=== PATIENT | male | born 1945 | race Caucasian/White ===

== ENCOUNTER 2020-01-16 14:19 | Outpatient (REF) | payer MEDICARE, SELFPAY ==
[2020-01-20 14:17] LABS: Cryptosporidium, F Negative (Negative); Giardia Ag, F Negative (Negative)
[2020-01-25 09:44] LABS: Misc Referral (VDH) See Comments
[2020-01-27 08:22] LABS: Misc Referral (MAYO) See Comments
== END 2020-01-16 14:39 ==
LOC: LBN 14:19
PROVIDERS: PCP Nurse Practitioner Family; Visit Provider Physician Assistant
DX: K52.9 Noninfective gastroenteritis and colitis, unspecified (principal)
CPT/HCPCS: 87177; 87209; 87328; 87329

== ENCOUNTER 2020-09-01 02:19 | Outpatient (CLI) | payer MEDICARE, SELFPAY ==
[2020-09-01 09:29] LABS: ALT 27 U/L (16-63); AST 16 U/L (15-37); Albumin 3.9 g/dL (3.4-5.0); Alkaline Phosphatase 125 U/L (46-116); Anion Gap 6.2 mmol/L (3-11); BUN 19 mg/dL (7-18); Bilirubin, Total 0.4 mg/dL (0.2-1.0); CO2 29.8 mmol/L (21.0-32.0); CREATININE 1.2 mg/dL (0.70-1.30); Calcium 8.7 mg/dL (8.5-10.1); Calculated LDL 48 mg/dL (<100); Chloride 108 mmol/L (98-107); Cholesterol 119 mg/dL (<200); Estimated GFR 59.35 (mL/min/1.73m2); Glucose 80 mg/dL (74-106); HDL Cholesterol 36 mg/dL (40-60); Potassium 4.3 mmol/L (3.5-5.1); Sodium 144 mmol/L (136-145); TSH (W/Ref FT4) 2.16 uIU/mL (0.36-3.74); Total Protein 6.9 g/dL (6.4-8.2); Triglyceride 178 mg/dL (<150)
== END 2020-09-01 02:20 | disposition home or self-care (01) ==
LOC: LBO 02:19
PROVIDERS: Registered Nurse; PCP Nurse Practitioner Family; Visit Provider Nurse Practitioner Family
DX: I10 Essential (primary) hypertension (principal); E78.5 Hyperlipidemia, unspecified; R62.50 Unspecified lack of expected normal physiological development in childhood
CPT/HCPCS: 36415; 80053; 80061; 84443

== ENCOUNTER 2021-12-21 03:50 | Outpatient (CLI) | payer MEDICARE, SELFPAY ==
[2021-12-21 08:31] LABS: Abs Immature Grans 0.18 10^3/uL (0.0-0.06); Absolute Basophil Count 0.08 10^3/uL (0.0-0.2); Absolute Eosinophil Count 0.25 10^3/uL (0.0-0.7); Absolute Lymphocyte Count 1.67 10^3/uL (1.2-3.4); Absolute Monocyte Count 0.65 10^3/uL (0.1-0.8); Absolute Neutrophil Count 5.08 10^3/uL (1.2-6.7); Eosinophils % 3.2; HGB 15.3 g/dL (13.5-17.5); Immature Grans % 2.3; Lymphocytes % 21.1; MCH 30.6 pg (27.0-33.0); MCV 90 fL (80-95); MPV 12.8 fL (8.0-11.0); Monocytes % 8.2; Neutrophils % 64.2; Platelet Count 151 10^3/uL (130-400); RDW 14.7 % (11.8-14.1); RDW-SD 48.3 fL; WBC 7.91 10^3/uL (4.4-10.8)
[2021-12-21 09:02] LABS: ALT 22 U/L (16-63); AST 21 U/L (15-37); Albumin 4.1 g/dL (3.4-5.0); Alkaline Phosphatase 124 U/L (46-116); Anion Gap 8.9 mmol/L (3-11); BUN 18 mg/dL (7-18); Bilirubin, Total 0.5 mg/dL (0.2-1.0); CO2 28.1 mmol/L (21.0-32.0); CREATININE 1.3 mg/dL (0.70-1.30); Calcium 9.3 mg/dL (8.5-10.1); Calculated LDL 49 mg/dL (<100); Chloride 102 mmol/L (98-107); Cholesterol 137 mg/dL (<200); Estimated GFR 53.82 (mL/min/1.73m2); Glucose 93 mg/dL (74-106); HDL Cholesterol 39 mg/dL (40-60); Potassium 4.9 mmol/L (3.5-5.1); Sodium 139 mmol/L (136-145); Total Protein 7.7 g/dL (6.4-8.2); Triglyceride 247 mg/dL (<150)
[2021-12-21 09:22] LABS: Vitamin D 25 Total 30.3 ng/mL (30-100)
[2021-12-22 10:21] LABS: Hepatitis C Ab w Rflx HCV PCR Negative (Negative)
== END 2021-12-21 03:51 | disposition home or self-care (01) ==
PROVIDERS: PCP Nurse Practitioner Family; Visit Provider Registered Nurse
DX: I10 Essential (primary) hypertension (principal); E55.9 Vitamin D deficiency, unspecified; Z11.59 Encounter for screening for other viral diseases; Z72.89 Other problems related to lifestyle; E78.5 Hyperlipidemia, unspecified
CPT/HCPCS: 36415; 80053; 80061; 82306; 86803; 85025

== ENCOUNTER 2023-03-06 21:20 | Outpatient (REF) | payer MEDICARE, SELFPAY ==
[2023-03-06 16:33] LABS: Abs Immature Grans 0.15 10^3/uL (0.0-0.06); Absolute Basophil Count 0.03 10^3/uL (0.0-0.2); Absolute Eosinophil Count 0.23 10^3/uL (0.0-0.7); Absolute Lymphocyte Count 1.23 10^3/uL (1.2-3.4); Absolute Monocyte Count 0.44 10^3/uL (0.1-0.8); Absolute Neutrophil Count 4.72 10^3/uL (1.2-6.7); Basophils % 0.4; Eosinophils % 3.4; HCT 26.4 % (40.0-50.0); HGB 7.6 g/dL (13.5-17.5); Immature Grans % 2.2; Lymphocytes % 18.1; MCH 22.9 pg (27.0-33.0); MCHC 28.8 % (32.0-36.0); MCV 80 fL (80-95); Monocytes % 6.5; Neutrophils % 69.4; RBC 3.32 10^6/uL (4.36-5.78); RDW 18.1 % (11.8-14.1); RDW-SD 51.4 fL
[2023-03-06 17:00] LABS: Diff Comment RBC Morph Reviewed; Hypochromasia 2+; Polychromasia Present
[2023-03-06 17:01] LABS: Platelet Count 188 10^3/uL (130-400)
[2023-03-06 17:12] LABS: Vitamin D 25 Total 32.2 ng/mL (30-100)
[2023-03-06 17:21] LABS: ALT 18 U/L (16-63); AST 14 U/L (15-37); Albumin 3.6 g/dL (3.4-5.0); Alkaline Phosphatase 88 U/L (46-116); Anion Gap 10.1 mmol/L (3-11); BUN 24 mg/dL (7-18); Bilirubin, Total 0.3 mg/dL (0.2-1.0); CO2 25.9 mmol/L (21.0-32.0); CREATININE 1.5 mg/dL (0.70-1.30); Calcium 9.2 mg/dL (8.5-10.1); Chloride 103 mmol/L (98-107); Estimated GFR 47.95 (mL/min/1.73m2); Ferritin 8 ng/mL (26-388); Folate > 20.0 ng/mL (8.6-20.0); Glucose 156 mg/dL (74-106); Potassium 4.6 mmol/L (3.5-5.1); Sodium 139 mmol/L (136-145); TSH (W/Ref FT4) 2.73 uIU/mL (0.36-3.74); Total Protein 6.5 g/dL (6.4-8.2); Vitamin B12 231 pg/mL (193-986)
[2023-03-06 17:41] LABS: NT-proBNP 32 pg/mL (<300)
[2023-03-07 09:30] LABS: Iron 18 ug/dL (65-175); Total Iron Binding Capacity 317 ug/dL (250-450); Transferrin Sat 6 % (20-55)
[2023-03-07 09:48] LABS: Hemoglobin A1C 4.9 % (<5.7)
[2023-03-07 12:10] LABS: Magnesium 2.1 mg/dL (1.8-2.4)
[2023-03-07 17:35] LABS: Reticulocyte Count 3.9 % (0.5-2.5)
== END 2023-03-06 21:21 | disposition home or self-care (01) ==
LOC: LBN 21:20
PROVIDERS: PCP Nurse Practitioner Family; Visit Provider Nurse Practitioner Gerontology
DX: D52.9 Folate deficiency anemia, unspecified (principal); R68.89 Other general symptoms and signs; E83.42 Hypomagnesemia; R73.09 Other abnormal glucose; R53.82 Chronic fatigue, unspecified; Z00.00 Encounter for general adult medical examination without abnormal findings
CPT/HCPCS: 80053; 82306; 85045; 82607; 82728; 82746; 83036; 83540; 83550; 83735; 83880; 84443; 85025

== ENCOUNTER 2023-03-09 15:13 | Outpatient (REF) | payer MEDICARE, SELFPAY ==
[2023-03-09 14:12] LABS: Abs Immature Grans 0.25 10^3/uL (0.0-0.06); Absolute Basophil Count 0.06 10^3/uL (0.0-0.2); Absolute Eosinophil Count 0.23 10^3/uL (0.0-0.7); Absolute Lymphocyte Count 1.25 10^3/uL (1.2-3.4); Absolute Monocyte Count 0.58 10^3/uL (0.1-0.8); Absolute Neutrophil Count 5.06 10^3/uL (1.2-6.7); Basophils % 0.8; Eosinophils % 3.1; HCT 28.1 % (40.0-50.0); Immature Grans % 3.4; Lymphocytes % 16.8; MCH 22.5 pg (27.0-33.0); MCHC 28.5 % (32.0-36.0); MCV 79 fL (80-95); Monocytes % 7.8; Neutrophils % 68.1; Platelet Count 214 10^3/uL (130-400); RBC 3.55 10^6/uL (4.36-5.78); RDW 17.9 % (11.8-14.1); RDW-SD 51.8 fL; WBC 7.43 10^3/uL (4.4-10.8)
[2023-03-11 16:24] LABS: Erythropoietin 190 mIU/mL (2.6 - 18.5)
[2023-03-13 09:41] LABS: Methylmalonic Acid 0.24 nmol/mL (<=0.40)
== END 2023-03-09 15:14 | disposition home or self-care (01) ==
LOC: LBN 15:13
PROVIDERS: PCP Nurse Practitioner Family; Visit Provider Nurse Practitioner Gerontology
DX: D50.9 Iron deficiency anemia, unspecified (principal); G89.4 Chronic pain syndrome
CPT/HCPCS: 80186; 82668; 85025

== ENCOUNTER 2023-03-13 19:39 | Outpatient (REF) | payer MEDICARE, SELFPAY ==
[2023-03-13 18:36] LABS: Abs Immature Grans 0.24 10^3/uL (0.0-0.06); Absolute Basophil Count 0.05 10^3/uL (0.0-0.2); Absolute Eosinophil Count 0.19 10^3/uL (0.0-0.7); Absolute Lymphocyte Count 1.15 10^3/uL (1.2-3.4); Absolute Monocyte Count 0.54 10^3/uL (0.1-0.8); Absolute Neutrophil Count 4.57 10^3/uL (1.2-6.7); Basophils % 0.7; Eosinophils % 2.8; HCT 26.3 % (40.0-50.0); HGB 7.6 g/dL (13.5-17.5); Immature Grans % 3.6; Lymphocytes % 17.1; MCH 22.8 pg (27.0-33.0); MCHC 28.9 % (32.0-36.0); MCV 79 fL (80-95); Neutrophils % 67.8; Platelet Count 189 10^3/uL (130-400); RBC 3.34 10^6/uL (4.36-5.78); RDW 17.6 % (11.8-14.1); RDW-SD 49.6 fL; WBC 6.74 10^3/uL (4.4-10.8)
[2023-03-13 18:52] LABS: Diff Comment RBC Morph Reviewed
[2023-03-13 18:53] LABS: Hypochromasia 2+
[2023-03-13 18:54] LABS: Anisocytosis 1+; Poikilocytes 1+; Polychromasia Present
[2023-03-13 18:56] LABS: Iron 39 ug/dL (65-175); Total Iron Binding Capacity 322 ug/dL (250-450); Transferrin Sat 12 % (20-55)
[2023-03-13 18:57] LABS: ALT 23 U/L (16-63); AST 19 U/L (15-37); Albumin 3.5 g/dL (3.4-5.0); Alkaline Phosphatase 92 U/L (46-116); Anion Gap 9.6 mmol/L (3-11); BUN 20 mg/dL (7-18); Bilirubin, Total 0.3 mg/dL (0.2-1.0); CO2 26.4 mmol/L (21.0-32.0); CREATININE 1.4 mg/dL (0.70-1.30); Calcium 9.3 mg/dL (8.5-10.1); Chloride 104 mmol/L (98-107); Estimated GFR 52.09 (mL/min/1.73m2); Glucose 123 mg/dL (74-106); Potassium 4.9 mmol/L (3.5-5.1); Sodium 140 mmol/L (136-145); Total Protein 6.3 g/dL (6.4-8.2)
== END 2023-03-13 19:40 | disposition home or self-care (01) ==
LOC: LBN 19:39
PROVIDERS: PCP Nurse Practitioner Family; Visit Provider Nurse Practitioner Gerontology
DX: D51.0 Vitamin B12 deficiency anemia due to intrinsic factor deficiency (principal)
CPT/HCPCS: 80053; 83540; 83550; 85025

== ENCOUNTER 2023-03-18 18:28 | Outpatient (REF) | payer MEDICARE, SELFPAY ==
[2023-03-18 18:27] LABS: Abs Immature Grans 0.15 10^3/uL (0.0-0.06); Absolute Basophil Count 0.06 10^3/uL (0.0-0.2); Absolute Eosinophil Count 0.29 10^3/uL (0.0-0.7); Absolute Lymphocyte Count 1.55 10^3/uL (1.2-3.4); Absolute Monocyte Count 0.72 10^3/uL (0.1-0.8); Absolute Neutrophil Count 5.02 10^3/uL (1.2-6.7); Basophils % 0.8; Eosinophils % 3.7; HCT 29.5 % (40.0-50.0); HGB 8.4 g/dL (13.5-17.5); Immature Grans % 1.9; Lymphocytes % 19.9; MCH 22.8 pg (27.0-33.0); MCHC 28.5 % (32.0-36.0); MCV 80 fL (80-95); Monocytes % 9.2; Neutrophils % 64.5; RBC 3.69 10^6/uL (4.36-5.78); RDW 18.6 % (11.8-14.1); RDW-SD 53.6 fL; WBC 7.79 10^3/uL (4.4-10.8)
[2023-03-18 18:37] LABS: ALT 24 U/L (16-63); AST 21 U/L (15-37); Albumin 3.8 g/dL (3.4-5.0); Alkaline Phosphatase 94 U/L (46-116); Anion Gap 10.2 mmol/L (3-11); BUN 21 mg/dL (7-18); Bilirubin, Total 0.3 mg/dL (0.2-1.0); CO2 24.8 mmol/L (21.0-32.0); CREATININE 1.5 mg/dL (0.70-1.30); Calcium 9.2 mg/dL (8.5-10.1); Chloride 105 mmol/L (98-107); Estimated GFR 47.95 (mL/min/1.73m2); Glucose 99 mg/dL (74-106); Potassium 4.8 mmol/L (3.5-5.1); Sodium 140 mmol/L (136-145)
[2023-03-18 18:44] LABS: Platelet Count 224 10^3/uL (130-400)
[2023-03-18 18:45] LABS: Diff Comment RBC Morph Reviewed
[2023-03-18 18:46] LABS: Anisocytosis 1+; Hypochromasia 2+; Polychromasia Present
[2023-03-18 18:47] LABS: Poikilocytes 1+
== END 2023-03-18 18:29 | disposition home or self-care (01) ==
LOC: LBN 18:28
PROVIDERS: PCP Nurse Practitioner Family; Visit Provider Nurse Practitioner Gerontology
DX: D50.0 Iron deficiency anemia secondary to blood loss (chronic) (principal); E55.9 Vitamin D deficiency, unspecified; D51.0 Vitamin B12 deficiency anemia due to intrinsic factor deficiency; E78.49 Other hyperlipidemia; G89.4 Chronic pain syndrome
CPT/HCPCS: 80053; 85025

== ENCOUNTER 2023-03-25 18:07 | Outpatient (REF) | payer MEDICARE, SELFPAY ==
[2023-03-25 18:53] LABS: Abs Immature Grans 0.23 10^3/uL (0.0-0.06); Absolute Basophil Count 0.07 10^3/uL (0.0-0.2); Absolute Eosinophil Count 0.27 10^3/uL (0.0-0.7); Absolute Lymphocyte Count 1.55 10^3/uL (1.2-3.4); Absolute Monocyte Count 0.51 10^3/uL (0.1-0.8); Absolute Neutrophil Count 4.71 10^3/uL (1.2-6.7); Eosinophils % 3.7; HCT 30.2 % (40.0-50.0); HGB 8.7 g/dL (13.5-17.5); Immature Grans % 3.1; Lymphocytes % 21.1; MCH 23.5 pg (27.0-33.0); MCHC 28.8 % (32.0-36.0); MCV 81 fL (80-95); Monocytes % 6.9; Neutrophils % 64.2; Platelet Count 191 10^3/uL (130-400); RBC 3.71 10^6/uL (4.36-5.78); RDW 19.5 % (11.8-14.1); RDW-SD 56.3 fL; WBC 7.34 10^3/uL (4.4-10.8)
[2023-03-25 19:07] LABS: ALT 24 U/L (16-63); AST 21 U/L (15-37); Albumin 3.7 g/dL (3.4-5.0); Alkaline Phosphatase 94 U/L (46-116); Anion Gap 8.9 mmol/L (3-11); BUN 24 mg/dL (7-18); Bilirubin, Total 0.3 mg/dL (0.2-1.0); CO2 25.1 mmol/L (21.0-32.0); CREATININE 1.7 mg/dL (0.70-1.30); Calcium 9.2 mg/dL (8.5-10.1); Chloride 104 mmol/L (98-107); Estimated GFR 41.26 (mL/min/1.73m2); Glucose 144 mg/dL (74-106); Potassium 4.9 mmol/L (3.5-5.1); Sodium 138 mmol/L (136-145); Total Protein 6.8 g/dL (6.4-8.2)
[2023-03-25 19:16] LABS: Anisocytosis 1+; Diff Comment RBC Morph Reviewed; Hypochromasia 1+; Polychromasia Present
== END 2023-03-25 18:08 | disposition home or self-care (01) ==
LOC: LBN 18:07
PROVIDERS: PCP Nurse Practitioner Family; Visit Provider Nurse Practitioner Gerontology
DX: D50.9 Iron deficiency anemia, unspecified (principal); D51.0 Vitamin B12 deficiency anemia due to intrinsic factor deficiency; E78.49 Other hyperlipidemia; E83.42 Hypomagnesemia; R53.82 Chronic fatigue, unspecified; G89.4 Chronic pain syndrome
CPT/HCPCS: 80053; 85025

== ENCOUNTER 2023-04-02 18:52 | Outpatient (REF) | payer MEDICARE, SELFPAY ==
[2023-04-02 16:44] LABS: Abs Immature Grans 0.17 10^3/uL (0.0-0.06); Absolute Basophil Count 0.04 10^3/uL (0.0-0.2); Absolute Eosinophil Count 0.26 10^3/uL (0.0-0.7); Absolute Lymphocyte Count 1.28 10^3/uL (1.2-3.4); Absolute Monocyte Count 0.59 10^3/uL (0.1-0.8); Absolute Neutrophil Count 4.11 10^3/uL (1.2-6.7); Basophils % 0.6; HGB 8.9 g/dL (13.5-17.5); Immature Grans % 2.6; Lymphocytes % 19.8; MCH 23.5 pg (27.0-33.0); MCHC 28.7 % (32.0-36.0); MCV 82 fL (80-95); Monocytes % 9.1; Neutrophils % 63.9; Platelet Count 187 10^3/uL (130-400); RBC 3.78 10^6/uL (4.36-5.78); RDW 20.4 % (11.8-14.1); RDW-SD 60.2 fL; WBC 6.45 10^3/uL (4.4-10.8)
[2023-04-02 17:26] LABS: Diff Comment RBC Morph Reviewed
[2023-04-02 17:27] LABS: Anisocytosis 2+; Polychromasia Present
[2023-04-02 17:30] LABS: Poikilocytes 1+
== END 2023-04-02 18:53 | disposition home or self-care (01) ==
LOC: LBN 18:52
PROVIDERS: PCP Nurse Practitioner Family; Visit Provider Nurse Practitioner Gerontology
DX: E78.49 Other hyperlipidemia (principal); D50.0 Iron deficiency anemia secondary to blood loss (chronic); R62.50 Unspecified lack of expected normal physiological development in childhood; B35.1 Tinea unguium
CPT/HCPCS: 85025

== ENCOUNTER 2023-04-15 17:46 | Outpatient (REF) | payer MEDICARE, SELFPAY ==
[2023-04-15 17:58] LABS: Absolute Basophil Count 0.07 10^3/uL (0.0-0.2); Absolute Lymphocyte Count 1.49 10^3/uL (1.2-3.4); Absolute Monocyte Count 0.66 10^3/uL (0.1-0.8); Absolute Neutrophil Count 4.74 10^3/uL (1.2-6.7); Basophils % 0.9; HGB 10.5 g/dL (13.5-17.5); Immature Grans % 2.7; MCH 24.8 pg (27.0-33.0); MCHC 29.2 % (32.0-36.0); MCV 85 fL (80-95); Monocytes % 8.8; Neutrophils % 63.6; RBC 4.24 10^6/uL (4.36-5.78); RDW 22.8 % (11.8-14.1); RDW-SD 69.5 fL; WBC 7.46 10^3/uL (4.4-10.8)
[2023-04-15 19:57] LABS: Platelet Count 168 10^3/uL (130-400)
[2023-04-15 19:58] LABS: Anisocytosis 2+; Diff Comment RBC Morph Reviewed; Hypochromasia 1+; Microcytosis 1+; Polychromasia Present
[2023-04-15 19:59] LABS: Poikilocytes 1+
== END 2023-04-15 17:47 | disposition home or self-care (01) ==
LOC: LBN 17:46
PROVIDERS: PCP Nurse Practitioner Family; Visit Provider Nurse Practitioner Gerontology
DX: D50.0 Iron deficiency anemia secondary to blood loss (chronic) (principal)
CPT/HCPCS: 85025

== ENCOUNTER 2023-05-13 17:57 | Outpatient (REF) | payer MEDICARE, SELFPAY ==
[2023-05-13 19:22] LABS: Abs Immature Grans 0.13 10^3/uL (0.0-0.06); Absolute Basophil Count 0.08 10^3/uL (0.0-0.2); Basophils % 1.1; Eosinophils % 3.9; HCT 41.9 % (40.0-50.0); HGB 13.2 g/dL (13.5-17.5); Immature Grans % 1.7; Lymphocytes % 19.7; MCH 27.6 pg (27.0-33.0); MCHC 31.5 % (32.0-36.0); MCV 88 fL (80-95); Monocytes % 10.5; Neutrophils % 63.1; RBC 4.79 10^6/uL (4.36-5.78); RDW 21.8 % (11.8-14.1); RDW-SD 69.4 fL; WBC 7.61 10^3/uL (4.4-10.8)
[2023-05-13 19:39] LABS: Diff Comment PLT Morph Reviewed; Platelet Count 143 10^3/uL (130-400)
[2023-05-13 19:47] LABS: ALT 43 U/L (16-63); AST 29 U/L (15-37); Albumin 3.9 g/dL (3.4-5.0); Alkaline Phosphatase 92 U/L (46-116); Anion Gap 5.8 mmol/L (3-11); BUN 23 mg/dL (7-18); Bilirubin, Total 0.3 mg/dL (0.2-1.0); CO2 27.2 mmol/L (21.0-32.0); CREATININE 1.5 mg/dL (0.70-1.30); Calcium 9.5 mg/dL (8.5-10.1); Chloride 104 mmol/L (98-107); Estimated GFR 47.95 (mL/min/1.73m2); Ferritin 46 ng/mL (26-388); Glucose 85 mg/dL (74-106); Potassium 4.9 mmol/L (3.5-5.1); Sodium 137 mmol/L (136-145); Total Protein 7.1 g/dL (6.4-8.2)
== END 2023-05-13 17:58 | disposition home or self-care (01) ==
LOC: LBN 17:57
PROVIDERS: PCP Nurse Practitioner Family; Visit Provider Nurse Practitioner Gerontology
DX: D50.0 Iron deficiency anemia secondary to blood loss (chronic) (principal)
CPT/HCPCS: 80053; 82728; 85014; 85018; 85025

== ENCOUNTER 2023-06-24 18:32 | Outpatient (REF) | payer MEDICARE, SELFPAY ==
[2023-06-24 17:43] LABS: Abs Immature Grans 0.31 10^3/uL (0.0-0.06); Absolute Basophil Count 0.05 10^3/uL (0.0-0.2); Absolute Eosinophil Count 0.04 10^3/uL (0.0-0.7); Absolute Lymphocyte Count 0.68 10^3/uL (1.2-3.4); Absolute Monocyte Count 0.26 10^3/uL (0.1-0.8); Absolute Neutrophil Count 7.89 10^3/uL (1.2-6.7); Basophils % 0.5; Eosinophils % 0.4; HCT 41.5 % (40.0-50.0); HGB 13.4 g/dL (13.5-17.5); Immature Grans % 3.4; Lymphocytes % 7.4; MCH 28.9 pg (27.0-33.0); MCHC 32.3 % (32.0-36.0); MCV 89 fL (80-95); Monocytes % 2.8; Neutrophils % 85.5; Platelet Count 145 10^3/uL (130-400); RBC 4.64 10^6/uL (4.36-5.78); RDW 18.2 % (11.8-14.1); RDW-SD 59.7 fL; WBC 9.23 10^3/uL (4.4-10.8)
[2023-06-24 17:51] LABS: ALT 46 U/L (16-63); AST 25 U/L (15-37); Albumin 3.7 g/dL (3.4-5.0); Alkaline Phosphatase 86 U/L (46-116); Anion Gap 11.5 mmol/L (3-11); BUN 23 mg/dL (7-18); Bilirubin, Total 0.4 mg/dL (0.2-1.0); CO2 23.5 mmol/L (21.0-32.0); CREATININE 1.6 mg/dL (0.70-1.30); Calcium 9.3 mg/dL (8.5-10.1); Chloride 104 mmol/L (98-107); Estimated GFR 44.38 (mL/min/1.73m2); Glucose 183 mg/dL (74-106); Potassium 4.9 mmol/L (3.5-5.1); Sodium 139 mmol/L (136-145)
== END 2023-06-24 18:33 | disposition home or self-care (01) ==
LOC: LBN 18:32
PROVIDERS: PCP Nurse Practitioner Family; Visit Provider Nurse Practitioner Gerontology
DX: D50.9 Iron deficiency anemia, unspecified (principal); G89.4 Chronic pain syndrome
CPT/HCPCS: 80053; 85025

== ENCOUNTER 2023-12-24 17:32 | Outpatient (REF) | payer MEDICARE, MEDICAID, SELFPAY ==
--- OUTSIDE RECORDS SUMMARY | 2023-12-24 17:35 | XMS_ITS | Referral Summary ---
Author Organization [facility] Address [address] [place] [address] Care Team Providers Care Consumer Loan Processor Name Role Phone Unavailable Primary Care Provider Unavailabl e Social History Tobacco Use Types Packs/Day Years Used Date Smoking Tobacco: Never Assessed Interpersonal Safety Answer Date Record ed Physically Hurt Never 03/29/2020 Verbally Threaten Not on file 03/29/2020 Sex and Gender Information Value Date Recorded Sex Assigned at Not on file Gender Identity Not on file Sexual Orientation Not on file Plan of Treatment Not on file Procedures Procedure Name Priority Date/Time Associated Diagnosis Comments HEPATITIS C AB W REFLEX TO HCV RNA BY PCR Routine 12/21/2021 8:11 EDT from Last 3 Months or Most Recently Relevant to Health Maintenance Results * HEPATITIS C AB W REFLEX TO HCV RNA BY PCR (12/21/2021 8:11 EDT) Hep C Antibody Negative Negative 12/22/2021 10:17 EDT [facility] Blood VENOUS BLOOD / Unknown 12/21/2021 8:11 EDT 12/21/2021 17:19 EDT Provider Outr Resulting Lab CHEMISTRY & BLOOD GAS ORDERABLES [facility] [address] [place] [address] from Last 3 Months or Most Recently Relevant to Health Maintenance
--- OUTSIDE RECORDS SUMMARY | 2023-12-24 17:35 | XMS_ITS | Encounter Summary ---
Author Organization [facility] Address [address] [place] [id number] Care Team Providers Care Puppet Maker Name Role Phone Unavailable Primary Care Provider Unavailabl e Encounter Details Date Type Department Care Team (Late st Contact Info) Description 03/07/2023 Lab Requisition [facility] Pathology & [place] [address] Outr Resulting Lab, Provider Social History Tobacco Use Types Packs/Day Years Used Date Smoking Tobacco: Never Assessed Interpersonal Safety Answer Date Record ed Physically Hurt Never 03/29/2020 Verbally Threaten Not on file 03/29/2020 Sex and Gender Information Value Date Recorded Sex Assigned at Not on file Gender Identity Not on file Sexual Orientation Not on file documented as of this encounter Plan of Treatment Not on file documented as of this encounter Procedures Procedure Name Priority Date/Time Associated Diagnosis Comments RETICULOCYTE COUNT Routine 03/06/2023 10 :45 EDT documented in this encounter Results * (ABNORMAL) RETICULOCYTE COUNT (03/06/2023 10:45 EDT) Retic Ct (Uncorrected) 3.9(H) 0.5 - 2.5 % 03/07/2023 17:[address] [facility] Blood VENOUS BLOOD / Unknown 03/06/2023 10:45 EDT 03/07/2023 17:13 EDT Provider Outr Resulting Lab HEMATOLOGY & PF4 ORDERABLES [facility] [address] [place] [address] documented in this encounter Visit Diagnoses Not on filedocumented in this encounter
--- OUTSIDE RECORDS SUMMARY | 2023-12-24 17:35 | XMS_ITS | Encounter Summary ---
Author Organization [facility] Address [address] [place] [address] Care Team Providers Care Patch Driller Name Role Phone Unavailable Primary Care Provider Unavailabl e Encounter Details Date Type Department Care Team (Late st Contact Info) Description 12/21/2021 Lab Requisition [facility] Pathology & Laboratory Medicine - [facility] [address] [place] [address] Outr Resulting Lab, Provider Social History Tobacco [...] RNA BY PCR Routine 12/21/2021 8:11 EDT documented in this encounter Results * HEPATITIS C AB W REFLEX TO HCV RNA BY PCR (12/21/2021 8:11 EDT) Hep C Antibody Negative Negative 12/22/2021 10:17 EDT [facility] Blood VENOUS BLOOD / Unknown 12/21/2021 8:11 EDT 12/21/2021 17:19 EDT Provider Outr Resulting Lab CHEMISTRY & BLOOD GAS ORDERABLES [facility] [address] [place] [address] documented in this encounter Visit Diagnoses Not on filedocumented in this encounter
--- OUTSIDE RECORDS SUMMARY | 2023-12-24 17:35 | XMS_ITS | Clinical Summary ---
Author Organization [facility] Address [address] [place] [address] Care Team Providers Care Dipper And Baker Name Role Phone Unavailable Primary Care Provider [...] Orientation Not on file Plan of Treatment Health Maintenance Due Date Last Done Comments RSV Immunization ( o r 60+ Years) (1 - 1-dose 60+ series) 2006 Fall Risk Screening 12/12/2011 COVID-19 Vaccine (2022- season) 2023 Hepatitis C Screen Completed 12/21/2021 Procedures Procedure Name Priority Date/Time Associated Diagnosis Comments HEPATITIS C AB W REFLEX TO HCV RNA BY PCR Routine 12/21/2021 8:11 EDT from Last 3 Months or Most Recently Relevant to Health Maintenance Results * HEPATITIS C AB W REFLEX TO HCV RNA BY PCR (12/21/2021 8:11 EDT) Hep C Antibody Negative Negative 12/22/2021 10:17 EDT [facility] Blood VENOUS BLOOD / Unknown 12/21/2021 8:11 EDT 12/21/2021 17:19 EDT Provider Outr Resulting Lab CHEMISTRY & BLOOD GAS ORDERABLES [facility] [address] [place] [address] from Last 3 Months or Most Recently Relevant to Health Maintenance
--- OUTSIDE RECORDS SUMMARY | 2023-12-24 17:36 | XMS_ITS | Encounter Summary ---
Author Organization [facility] Address [address] [facility] [place] [address] Care Team Providers Care Tick Inspector Name Role Phone Unavailable Primary Care Provider Unavailabl e Encounter Details Date Type Department Care Team (Late st Contact Info) Description 12/14/2021 Interpretation Only [facility] [address] [place] [id number] Arielle Flores APRN [address] [id number] Social History Tobacco Use Types Packs/Day Years Used Date Smoking Tobacco: Never Assessed Sex and Gender Information Value Date Recorded Sex Assigned at Not on file Gender Identity Not on file Sexual Orientation Not on file documented as of this encounter Plan of Treatment Not on file documented as of this encounter Procedures Procedure Name Priority Date/Time Associated Diagnosis Comments XR KNEE 4 OR MORE VIEWS LEFT Routine 12/14/2021 11:41 AM EDT documented in this encounter Results * XR Knee 4 or more views Left (12/14/2021 11:41 AM EDT) PT CLASS O RAD ADMITDTTM RAD PT RAD INFO [id number]^NE WTON^MOI H RAD EXAM DESC XKN4L^XR LEFT KNEE COMPLETE (4VIEWS)^RIS RAD Anatomical Region Laterality Modality Knee Left Radiographic Melida ging Impressions 12/14/2021 1:12 PM EDT Degenerative changes as above. Thank you for letting us participate in the care of this patient. ??If you are a health care provider and have any questions regarding this report, please contact the number below. ??For patients who have questions please contact the health pet care worker that requested your imaging first. ? Electronically signed by: Elliott Parry MD, [facility] ([phone]), at 12/14/2021 1:12 PM Narrative 12/14/2021 1:12 PM EDT EXAMINATION: XR LEFT KNEE COMPLETE (4VIEWS) CLINICAL HISTORY: knee pain left TECHNIQUE: 4 views of the left knee COMPARISON: None FINDINGS: Maintained joint spaces. Minimal chondrocalcinosis. Normal patellofemoral alignment. Patella tendon ossification adjacent to the tibial tubercle. No effusion. Procedure Note Elliott Parry MD - 12/14/2021 EXAMINATION: XR LEFT KNEE COMPLETE (4VIEWS) CLINICAL HISTORY: knee pain left TECHNIQUE: 4 views of the left knee COMPARISON: None FINDINGS: Maintained joint spaces. Minimal chondrocalcinosis. Normalpatellofemoral alignment. Patella tendon ossification adjacent to the tibial tubercle.No effusion. IMPRESSION Degenerative changes as above. Thank you for letting us participate in the care of this patient. If youare a health care provider and have any questions regarding this report,please contact the number below. For patients who have questions please contactthe health pet care worker that requested your imaging first. Electronically signed by: Elliott Parry MD, [facility]([phone]), at 12/14/2021 1:12 PM Arielle Flores APRN IMG DX ORDERABLES documented in this encounter Visit Diagnoses Not on filedocumented in this encounter
--- OUTSIDE RECORDS SUMMARY | 2023-12-24 17:36 | XMS_ITS | Encounter Summary ---
Author Organization [facility] Address [address] [place] [address] Care Team Providers Care Border Police Name Role Phone Unavailable Primary Care Provider Unavailabl e Encounter Details Date Type Department Care Team (Late st Contact Info) Description 01/18/2020 Lab Requisition [facility] Pathology & Laboratory Medicine - [facility] [address] [place] [address] Outr Resulting Lab, Provider Social History Tobacco Use Types Packs/Day Years Used Date Smoking Tobacco: Never Assessed Sex and Gender Information Value Date Recorded Sex Assigned at Not on file Gender Identity Not on file Sexual Orientation Not on file documented as of this encounter Plan of Treatment Not on file documented as of this encounter Visit Diagnoses Not on filedocumented in this encounter
--- OUTSIDE RECORDS SUMMARY | 2023-12-24 17:36 | XMS_ITS | Clinical Summary ---
Author Organization [facility] [address] Care Team Providers Care Principal Technical Architect Name Role Phone Unavailable Primary Care Provider Unavailabl e Social History Tobacco Use Types Packs/Day Years Used Date Smoking Tobacco: Never Assessed Sex and Gender Information Value Date Recorded Sex Assigned at Not on file Gender Identity Not on file Sexual Orientation Not on file Plan of Treatment Health Maintenance Due Date Last Done Comments Hepatitis C Screening 1963 Tdap adult 1965 Tetanus vaccine 1965 Zoster vaccine (1 of 2) 1996 Advance Directive 2001 Pneumoccocal Vaccine: 65+ (1 of 1 - PCV) 12/12/2011 Covid-19 Vaccine (1 - 2022-24 season) 2023 Influenza (Flu) vaccine (1 o f 1 - Influenza standard series) 01/05/2024
[2023-12-24 18:57] LABS: Abs Immature Grans 0.14 10^3/uL (0.0-0.06); Absolute Basophil Count 0.02 10^3/uL (0.0-0.2); Absolute Eosinophil Count 0.24 10^3/uL (0.0-0.7); Absolute Lymphocyte Count 1.23 10^3/uL (1.2-3.4); Absolute Monocyte Count 0.64 10^3/uL (0.1-0.8); Absolute Neutrophil Count 5.23 10^3/uL (1.2-6.7); Basophils % 0.3 %; Eosinophils % 3.2 %; Immature Grans % 1.9 %; Lymphocytes % 16.4 %; MCH 20.2 pg (27.0-33.0); MCHC 26.4 % (32.0-36.0); MCV 77 fL (80-95); Monocytes % 8.5 %; Neutrophils % 69.7 %; Nucleated RBC 0.4 % (0.0-0.3); Platelet Count 222 10^3/uL (130-400); RBC 2.62 10^6/uL (4.36-5.78); RDW 21.9 % (11.8-14.1); RDW-SD 58.8 fL
[2023-12-24 19:17] LABS: HGB 5.3 g/dL (13.5-17.5)
[2023-12-24 19:18] LABS: HCT 20.1 % (40.0-50.0)
[2023-12-24 19:25] LABS: Anisocytosis 1+; Diff Comment RBC Morph Reviewed; Hypochromasia 2+
[2023-12-24 19:26] LABS: Poikilocytes 1+
[2023-12-24 19:52] LABS: Iron 16 ug/dL (65-175); Total Iron Binding Capacity 384 ug/dL (250-450); Transferrin Sat 4 % (20-55)
[2023-12-24 20:14] LABS: ALT 38 U/L (16-63); AST 22 U/L (15-37); Albumin 3.8 g/dL (3.4-5.0); Alkaline Phosphatase 59 U/L (46-116); Anion Gap 9.8 mmol/L (3-11); BUN 22 mg/dL (7-18); CO2 27.2 mmol/L (21.0-32.0); CREATININE 1.2 mg/dL (0.70-1.30); Chloride 106 mmol/L (98-107); Estimated GFR 62.29 (mL/min/1.73m2); Ferritin 6 ng/mL (26-388); Glucose 106 mg/dL (74-106); Magnesium 2.1 mg/dL (1.8-2.4); Potassium 4.4 mmol/L (3.5-5.1); Sodium 143 mmol/L (136-145); TSH (W/Ref FT4) 1.63 uIU/mL (0.36-3.74); Total Protein 6.6 g/dL (6.4-8.2); Vitamin B12 221 pg/mL (193-986)
[2023-12-24 20:24] LABS: Folate > 20.0 ng/mL (8.6-20.0)
[2023-12-24 20:42] LABS: NT-proBNP 1519 pg/mL (<300)
[2023-12-24 21:01] LABS: Hemoglobin A1C 5.2 % (<5.7)
== END 2023-12-24 17:33 | disposition home or self-care (01) ==
LOC: LBN 17:32
PROVIDERS: PCP Nurse Practitioner Family; Visit Provider Nurse Practitioner Gerontology
DX: I50.9 Heart failure, unspecified (principal); R73.09 Other abnormal glucose; E83.42 Hypomagnesemia; I11.0 Hypertensive heart disease with heart failure; I11.9 Hypertensive heart disease without heart failure; G89.4 Chronic pain syndrome; D52.9 Folate deficiency anemia, unspecified; D51.9 Vitamin B12 deficiency anemia, unspecified
CPT/HCPCS: 80053; 82306; 82607; 82728; 82746; 83036; 83540; 83550; 83735; 83880; 84443; 85025

== ENCOUNTER 2023-12-24 20:55 | Inpatient (IN) | payer MEDICARE, MEDICAID, SELFPAY ==
[2023-12-24] VITALS (22 sets, daily range): BP systolic 149–184; BP diastolic 69–77; PULSE 106–114; RESP 24–34; TEMP 36.5–37.6; O2SAT 90–98
--- NOTE | 2023-12-24 21:05 | ED.GENADUL_ITS ---
Discharge Plan Disposition Patient Disposition: Admit to [facility] Condition: Poor Discharge Details Chief Complaint: Abd Prob Clinical Impression: Anemia, CHF (congestive heart failure), Colitis, Pulmonary edema Primary Care Provider: Rhonda Fuentes ED Provider: Juliette Alberts Home Meds and New Rx's Prescriptions: No Action diltiazem HCl 60 mg capsule,extended release 12 hr 60 mg PO ONCE fluticasone propionate 50 mcg/actuation spray,suspension 1 spray INTRANASAL ipratropium-albuterol 0.5 mg-3 mg(2.5 mg base)/3 mL solution for nebulization 3 ml INHALATION PRN sucralfate 1 gram tablet 1 g PO BID lovastatin 20 mg tablet HPI General Date/Time Provider Initiated Documentation: 12/24/23 20:56 . Limitations to Documentation: altered mental status (baseline) . Information obtained by: patient, family (minimal) and RN notes reviewed . History of Present Illness 78 year old M presents to the emergency department with the chief complaint of anemia, described as severe (5.8), Patient started experiencing this unknown Other factors that worsen symptoms (unknown) . Patient notes loss of appetite and malaise; denies chest pain, cough, diaphoresis, fever/chills, headaches, nausea/vomiting, rash and shortness of breath. Patient did receive the following treatments prior to arrival, none Related Data Home Medications ?Medication ?Instructions ?Recorded ?Confirmed diltiazem HCl 60 mg 60 mg PO ONCE 12/24/23 12/24/23 capsule,extended release 12 hr fluticasone propionate 50 1 spray intranasal 12/24/23 mcg/actuation nasal spray,suspension ipratropium 0.5 mg-albuterol 3 mg 3 ml inhalation PRN 12/24/23 12/24/23 (2.5 mg base)/3 mL nebulization soln lovastatin 20 mg tablet mg 12/24/23 sucralfate 1 gram tablet 1 g PO BID 12/24/23 12/24/23 Allergies Allergy/AdvReac Type Severity Reaction Status Date / Time No Known Allergies Allergy Unverified 12/24/23 21:26 Review of Systems Narrative: Due to patients baseline mental state, difficult to obtain reliable history form patient. Exam Const General: cooperative, comfortable, no acute distress, well developed and ill appearing chronically (pallor noted) Nutritional Appearance: average body habitus and well nourished Orientation: alert and awake Resp Effort & Inspection: normal respiratory effort, able to speak in complete sentences and no respiratory distress Auscultation: clear to auscultation bilaterally, no rales, no rhonchi and no wheezes Cardio Rate: regular rate Rhythm: regular rhythm Heart Sounds: S1 normal and S2 normal GI Inspection: normal to inspection Palpation: soft, no hepatosplenomegaly, no masses, no pulsatile masses, nontender and No ascites Percussion: normal to percussion Auscultation: hypoactive bowel sounds Skin General skin exam: no rashes or lesions noted Trauma: no lacerations or abrasions Neuro General: patient alert and patient awake Cognition: normal cognition Speech: speech normal Medical Decision Making Patient is a pleasant 78 year old male, brought in by his neice who is his DPOA, with c/c of anemia. Per niece, patient had meningitis as a child and has not been able to care for himself since then, has been in [facility] custody of her family since then. Patient currently resides at the [facility]. He has past medical history significant for hyperlipidemia, hypertension with heart failure, chronic cough, B12 deficiency anemia, COPD. 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 When labs were obtained, patient was found to be notably anemic with a hemoglobin of 5.3. Unclear etiology although the patient does state that he has had some dark stools over the past few days. Patient's niece does state that he is not reliable in this regard. She reports that he also chronically complains of abdominal discomfort but that this is not new for the patient. He does not Dors any chest pain. Patient has not had any colonoscopy in the past. Prior to the niece being DPOA, it was his brother who had not wanted to have significant interventions performed on the patient. Patient is denying any acute pain or overall change in how he is feeling. Niece does report that he has had slightly diminished appetite. On exam, patient does appear overall pale. He is hemodynamically stable. Lungs are clear, normal cardiac exam. No abdominal pain. Patient does have some hypoactive bowel sounds. Rectal exam was performed nursing staff at bedside. Negative guaiac. Stool is mcmillan in color. He does have a notably enlarged and firm prostate. He has not had any prostate exam based on family report. Initial concern was for GI bleed as the patient had reported dark stools. However, rectal exam does not support this diagnosis. Unclear etiology at this time. He has had kidney issues historically, this could be associated with a chronic kidney disease it has been increasing. Also considered cancerous etiology given the enlarged prostate, potentially with metastasis leading to poor RBC production. May also be more benign such as iron deficiency or B12 deficiency. Will obtain labs, order 2 units of blood and continue to monitor the patient. As patient's history is limited but we do know that he has been endorsing some abdominal pain, will obtain a CT of his abdomen. Labs reviewed. White blood cell count within normal limits. Hemoglobin is 5.5. I discussed risk, benefits as well as alternatives with family member regarding blood transfusion, they voiced understanding and wished to proceed. Patient does have an elevated lactate at 2.3. His creatinine is elevated at 1.4 but this does appear to be baseline for the patient. Troponin within normal limits. And no abnormalities of his LFTs. CT reviewed by radiologist: FINDINGS: Lungs: There are diffuse interstitial infiltrates present. This may represent cardiogenic versus noncardiogenic edema. An acute inflammatory process and/or infectious process/pneumonia are not excluded. Mild paraseptal emphysematous changes present within the right lower lobe of the lung. There is a bleb present within the left lower lobe of the lung. There is heterogeneous attenuation of the pulmonary parenchyma, consistent with air trapping from underlying small airways disease. Pleural spaces: There are small bilateral pleural effusions. Liver: The liver is enlarged measuring approximately 19 cm. There is a diffuse decrease in hepatic parenchymal density, consistent with mild fatty infiltration. Low-attenuation lesions within the left and right liver lobe consistent with hepatic cysts. There is no evidence of intrahepatic or extrahepatic biliary ductal dilation. Gallbladder and biliary ducts: The gallbladder is normal. There is no cholelitiasis, wall thickening or pericholecystic fluid to suggest cholecystitis. Pancreas: Normal. No ductal dilation. Spleen: The spleen is enlarged. The spleen otherwise appears normal. Adrenal glands: Normal. No mass. Kidneys and ureters: Bosniak type 1 and type 2 cysts measuring 11 mm on the right and the largest on the left measuring 11.7 mm. No hydronephrosis. No renal calculi the ureters are normal bilaterally. Stomach and bowel: There is a moderate to large hiatal hernia containing the fundus of the stomach. There is moderate increased colonic fecal content. The colon is mildly distended. These findings suggest a moderate degree of constipation. Clinical correlation rec ommended. Extensive diverticulosis is present in the sigmoid and descending colon. There is a segment of diffuse wall thickening at the junction of the sigmoid and descending colon, with associated mild inflammatory changes within the mesentery, consistent in appearance with acute diverticulitis. No evidence of abscess or free air to suggest perforation. As an underlying colonic malignancy cannot be entirely excluded, a follow-up examination after a course of treatment is recommended if clinically warranted. There is no evidence of intestinal obstruction. Appendix: A normal appendix is identified. There is no evidence of distention or periappendiceal inflammation to suggest appendicitis. Intraperitoneal space: There is no evidence of free intraperitoneal or pelvic fluid. 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 No evidence of leakage or rupture. The aorta demonstrates moderate atherosclerotic calcification. The arterial peripheral vasculature demonstrates diffuse mild atherosclerotic calcification. The inferior venacava appears normal.The portal, mesenteric and splenic veins are patent.There is no free intraperitoneal air. Lymph nodes: There is no evidence of lymphadenopathy. Urinary bladder: The bladder is normal. Reproductive: The prostate gland demonstrates calcification and mild to moderate nonspecific enlargement. The seminal vesicles are normal. Bones/joints: The skeletal structures and soft tissues show no evidence of fracture or other acute processes. Irregular expansile lesions of the left pelvis may represent Paget's disease. The proximal femurs are normal. The thoracolumbar and lumbar spine show mild degenerative change but are otherwise unremarkable. Soft tissues: There is a fat-containing umbilical hernia. The extra-abdominal soft tissues are otherwise normal. There is a nonobstructing left inguinal hernia containing fat and possibly a small amount of mesentery. IMPRESSION: 1. There is a segment of diffuse wall thickening at the junction of the sigmoid and descending colon, with associated mild inflammatory changes within the mesentery, consistent in appearance with acute diverticulitis. No evidence of abscess or free air to suggest perforation. As an underlying colonic malignancy cannot be entirely excluded, a follow-up examination after a course of treatment is recommended if clinically warranted. 2. There are diffuse interstitial infiltrates present. This may represent cardiogenic versus noncardiogenic edema. An acute inflammatory process and/or infectious process/pneumonia are not excluded. 3. Mild paraseptal emphysematous changes present within the right lower lobe of the lung. There is a bleb present within the left lower lobe of the lung. There is heterogeneous attenuation of the pulmonary parenchyma, consistent with air trapping from underlying small airways disease. 4. Irregular expansile lesions of the left pelvis may represent Paget's disease. 5. Small bilateral pleural effusions.6. There is moderate increased colonic fecal content. The colon is mildly distended. These findings suggest a moderate degree of constipation. Clinical correlation recommended. 7. Hepatic steatosis with hepatosplenomegaly These findings suggesting infection do not correlate clinically. I am more concerned about hte potential of colon cancer. He has had no fevers, no pain with palpation, no leukocytosis. Will discuss with hospitalist if they woul dlike to pursue antibiotics. FINDINGS: Lungs: There is pulmonary venous congestion. There is diffuse interstitial edema. Underlying inflammatory or infectious process not excluded. Pleural spaces: There are no pleural effusions. No evidence of pneumothorax. Heart/Mediastinum: The heart is enlarged. There is prominence of the mediastinum. Bones/joints: The skeletal structures and soft tissues show no evidence of fracture or other acute processes. Soft tissues: The soft tissues of the extrathoracic region are unremarkable. IMPRESSION: Probable congestive heart failure versus fluid overload. Underlying inflammatory or infectious process not excluded. Consulted with hospitalist, Dr. Villarreal, regarding admission for anemia. Patient is receiving 2 units of PRBCs currently. Remains slightly hypertensive, heart rate in the 90s. Niece remains at bedside. Hospitalist agrees to admission for further evaluation, workup and continued blood products. Per DPOA, patient is to be DNR/DNI, they would like to pursue other treatment options at this time including possible colonoscopy if needed. However, more invasive surgeries would need to be discussed as a family. Also advised that palliative care would likely be beneficial in their setting. Quality:SDOH Health Related Social Needs: No Data to Display PFSH All Active Problems (Updated 12/25/23 @ 00:18 by SAVANNAH Ragland) Pulmonary edema (Acute) Colitis (Acute) CHF (congestive heart failure) (Chronic) Anemia (Chronic) Nail dystrophy (Acute) Social History Smoking/Tobacco Use Status: Former Tobacco Use Smoking risk assessment performed?: Yes Alcohol Intake: never Housing: half-way
--- NOTE | 2023-12-24 21:30 | RT.EKG_ITS ---
APPROVED REPORT Exam: Resting ECG Reason for Exam: anemia Patient Location: E HR:112 bpm ECG Measurements Heart Rate 112 AXIS CO 144 P 43 QRSd 97 QRS 5 QT 334 T 41 QTc [address] depression anterolateral leads No STEMI
--- NOTE | 2023-12-24 21:30 | DI.RAD_ITS ---
Exam(s) XR CHEST 2V PA LATERAL EXAM: XR CHEST 2V PA LATERAL CLINICAL HISTORY: SOB, anemia TECHNIQUE: 2D digital imaging was performed. Two views. COMPARISON: No exams were available for comparison FINDINGS: Exam limited by poor pulmonary inflation on the lateral view. HEART: Enlarged. Aorta: Not dilated. PULMONARY VASCULATURE: Mildly prominent. MEDIASTINUM: Unremarkable. LUNGS: No focal infiltrate visible. Question mild pulmonary edema. PLEURAL SPACE: No significant pleural effusion or pneumothorax. BONE:Unremarkable for age. SOFT TISSUES: Unremarkable. IMPRESSION: Cardiomegaly and mild CHF. DATA REPOSITORY: RADIATION DOSE DELIVERED:
[2023-12-24 21:49] LABS: Abs Immature Grans 0.12 10^3/uL (0.0-0.06); Absolute Basophil Count 0.03 10^3/uL (0.0-0.2); Absolute Eosinophil Count 0.29 10^3/uL (0.0-0.7); Absolute Lymphocyte Count 1.53 10^3/uL (1.2-3.4); Absolute Neutrophil Count 5.86 10^3/uL (1.2-6.7); Basophils % 0.4 %; Eosinophils % 3.4 %; HCT 21.3 % (40.0-50.0); Immature Grans % 1.4 %; Lymphocytes % 17.9 %; MCH 19.5 pg (27.0-33.0); MCHC 25.8 % (32.0-36.0); MCV 76 fL (80-95); Monocytes % 8.2 %; Neutrophils % 68.7 %; Nucleated RBC 0.5 % (0.0-0.3); Platelet Count 243 10^3/uL (130-400); RBC 2.82 10^6/uL (4.36-5.78); RDW 21.6 % (11.8-14.1); RDW-SD 58.1 fL; WBC 8.53 10^3/uL (4.4-10.8)
[2023-12-24 21:53] LABS: Lactate 2.3 mmol/L (0.9-1.7)
[2023-12-24 21:59] LABS: HGB 5.5 g/dL (13.5-17.5)
[2023-12-24 22:14] LABS: ALT 28 U/L (16-63); AST 19 U/L (15-37); Albumin 3.9 g/dL (3.4-5.0); Alkaline Phosphatase 62 U/L (46-116); Anion Gap 9.5 mmol/L (3-11); BUN 24 mg/dL (7-18); Bilirubin, Total 0.48 mg/dL (0.2-1.0); CO2 25.5 mmol/L (21.0-32.0); CREATININE 1.4 mg/dL (0.70-1.30); Calcium 9.4 mg/dL (8.5-10.1); Chloride 107 mmol/L (98-107); Estimated GFR 51.77 (mL/min/1.73m2); Glucose 123 mg/dL (74-106); Magnesium 2.1 mg/dL (1.8-2.4); Potassium 4.3 mmol/L (3.5-5.1); Sodium 142 mmol/L (136-145); Total Protein 7.4 g/dL (6.4-8.2); Troponin I < 50 ng/L (< or =60)
[2023-12-24 22:16] LABS: Anisocytosis 1+; Diff Comment RBC Morph Reviewed; Hypochromasia 2+
[2023-12-24 22:17] LABS: Poikilocytes 2+
[2023-12-24] MEDS: Normal Saline - Diluent 50 ML VIAL IJ (22:41)
[2023-12-24] MEDS: Omnipaque 350 MG/ML 100 ML BTL IJ (22:42)
--- NOTE | 2023-12-24 22:48 | DI.CT_ITS ---
Exam(s) CT ABDOMEN PELVIS W EXAM: CT ABDOMEN PELVIS W CLINICAL HISTORY: abdominal pain, rectal bleeding. TECHNIQUE: Imaging Protocol: Axial computed tomography images with coronal and sagittal reformatted images were created and reviewed CONTRAST MATERIAL: Intravenous: Omnipaque 350 Contrast volume:100 ml Oral: no COMPARISON: CR,XR XR CHEST 2V PA LATERAL from 12/24/2023 FINDINGS: ABDOMEN and PELVIS: Lung Bases: Small bilateral pleural effusions. Heart is enlarged. Vascular prominence and mildly in creased interstitial markings, consistent with CHF. Moderate size hiatal hernia. Liver: Mild fatty infiltration. Cysts. No suspicious mass. Gallbladder and biliary tract: No radiodense calculus. No biliary dilation. Pancreas: Normal density. No abnormal calcifications or inflammatory process. No evidence of mass. Spleen: Normal. Kidneys: Normal size, contour and axis. No radiodense stones. No obstructive uropathy. Cysts. No f ollow-up recommended. No suspicious masses seen. Adrenal glands: No masses seen. Vasculature: Atherosclerotic changes. In slight dilatation of the abdominal aorta insert 2.8 cm abov e the bifurcation. Soft tissues: Unremarkable. Bladder: No gross wall thickening. No calculi.No focal mass. Bowel: No obstruction. No bowel wall thickening. Prominent sigmoid diverticulosis. Question minima l inflammation around the sigmoid region. Appendix normal. Peritoneal cavity: No ascites. No focal collection. No mesenteric inflammatory response. Bones: Spine unremarkable for age. Cortical thickening of the left hemipelvis consistent with Paget 's disease. Reproductive organs: Prostate mildly enlarged. Lymph nodes: No pathologically enlarged lymph nodes. IMPRESSION:: Question of mild sigmoid diverticulitis. Small pleural effusions and increased interstitial markings could indicate CHF. RADIATION DOSE DELIVERED: Total DLP DATA REPOSITORY: All CT scans at this facility are submitted to the National Radiology Data Registry (NRDR) Dose Index Registry (DIR) with the [employer] ([employer]). RADIATION OPTIMIZATION: All CT scans at this facility use at least one of these dose optimization te chniques: automated exposure control; mA and/or kV adjustment per patient size (includes targeted exa ms where dose is matched to clinical indication); or iterative reconstruction.
--- NOTE | 2023-12-24 23:47 | DI.VRAD_ITS ---
PROCEDURE INFORMATION: Exam: CT Abdomen And Pelvis With Contrast Exam date and time: 12/24/2023 10:36 PM Age: 78 years old Clinical indication: Other: Abdominal pain, rectal bleeding TECHNIQUE: Imaging protocol: Computed tomography of the abdomen and pelvis with contrast. Contrast material: OMNIPAQUE 350; Contrast volume: 100 ml; Contrast route: INTRAVENOUS (IV); COMPARISON: No relevant prior studies available. FINDINGS: Lungs: There are diffuse interstitial infiltrates present. This may represent cardiogenic versus noncardiogenic edema. An acute inflammatory process and/or infectious process/pneumonia are not excluded. Mild paraseptal emphysematous changes present within the right lower lobe of the lung. There is a bleb present within the left lower lobe of the lung. There is heterogeneous attenuation of the pulmonary parenchyma, consistent with air trapping from underlying small airways disease. Pleural spaces: There are small bilateral pleural effusions. Liver: The liver is enlarged measuring approximately 19 cm. There is a diffuse decrease in hepatic parenchymal density, consistent with mild fatty infiltration. Low-attenuation lesions within the left and right liver lobe consistent with hepatic cysts. There is no evidence of intrahepatic or extrahepatic biliary ductal dilation. Gallbladder and biliary ducts: The gallbladder is normal. There is no cholelitiasis, wall thickening or pericholecystic fluid to suggest cholecystitis. Pancreas: Normal. No ductal dilation. Spleen: The spleen is enlarged. The spleen otherwise appears normal. Adrenal glands: Normal. No mass. Kidneys and ureters: Bosniak type 1 and type 2 cysts measuring 11 mm on the right and the largest on the left measuring 11.7 mm. No hydronephrosis. No renal calculi the ureters are normal bilaterally. Stomach and bowel: There is a moderate to large hiatal hernia containing the fundus of the stomach. There is moderate increased colonic fecal content. The colon is mildly distended. These findings suggest a moderate degree of constipation. Clinical correlation recommended. Extensive diverticulosis is present in the sigmoid and descending colon. There is a segment of diffuse wall thickening at the junction of the sigmoid and descending colon, with associated mild inflammatory changes within the mesentery, consistent in appearance with acute diverticulitis. No evidence of abscess or free air to suggest perforation. As an underlying colonic malignancy cannot be entirely excluded, a follow-up examination after a course of treatment is recommended if clinically warranted. There is no evidence of intestinal obstruction. Appendix: A normal appendix is identified. There is no evidence of distention or periappendiceal inflammation to suggest appendicitis. Intraperitoneal space: There is no evidence of free intraperitoneal or pelvic fluid. 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 No evidence of leakage or rupture. The aorta demonstrates moderate atherosclerotic calcification. The arterial peripheral vasculature demonstrates diffuse mild atherosclerotic calcification. The inferior venacava appears normal.The portal, mesenteric and splenic veins are patent.There is no free intraperitoneal air. Lymph nodes: There is no evidence of lymphadenopathy. Urinary bladder: The bladder is normal. Reproductive: The prostate gland demonstrates calcification and mild to moderate nonspecific enlargement. The seminal vesicles are normal. Bones/joints: The skeletal structures and soft tissues show no evidence of fracture or other acute processes. Irregular expansile lesions of the left pelvis may represent Paget's disease. The proximal femurs are normal. The thoracolumbar and lumbar spine show mild degenerative change but are otherwise unremarkable. Soft tissues: There is a fat-containing umbilical hernia. The extra-abdominal soft tissues are otherwise normal. There is a nonobstructing left inguinal hernia containing fat and possibly a small amount of mesentery. IMPRESSION: 1. There is a segment of diffuse wall thickening at the junction of the sigmoid and descending colon, with associated mild inflammatory changes within the mesentery, consistent in appearance with acute diverticulitis. No evidence of abscess or free air to suggest perforation. As an underlying colonic malignancy cannot be entirely excluded, a follow-up examination after a course of treatment is recommended if clinically warranted. 2. There are diffuse interstitial infiltrates present. This may represent cardiogenic versus noncardiogenic edema. An acute inflammatory process and/or infectious process/pneumonia are not excluded. 3. Mild paraseptal emphysematous changes present within the right lower lobe of the lung. There is a bleb present within the left lower lobe of the lung. There is heterogeneous attenuation of the pulmonary parenchyma, consistent with air trapping from underlying small airways disease. 4. Irregular expansile lesions of the left pelvis may represent Paget's disease. 5. Small bilateral pleural effusions. 6. There is moderate increased colonic fecal content. The colon is mildly distended. These findings suggest a moderate degree of constipation. Clinical correlation recommended. 7. Hepatic steatosis with hepatosplenomegaly Dictated and Authenticated by: Tom Delarosa MD. Ordering:EVAN Segovia MD
--- NOTE | 2023-12-24 23:48 | DI.VRAD_ITS ---
PROCEDURE INFORMATION: Exam: XR Chest Exam date and time: 12/24/2023 10:48 PM Age: 78 years old Clinical indication: Other: SOB, anemia TECHNIQUE: Imaging protocol: Radiologic exam of the chest. Views: 2 views. COMPARISON: CT ABDOMEN PELVIS W 12/24/2023 10:36 PM FINDINGS: Lungs: There is pulmonary venous congestion. There is diffuse interstitial edema. Underlying inflammatory or infectious process not excluded. Pleural spaces: There are no pleural effusions. No evidence of pneumothorax. Heart/Mediastinum: The heart is enlarged. There is prominence of the mediastinum. Bones/joints: The skeletal structures and soft tissues show no evidence of fracture or other acute processes. Soft tissues: The soft tissues of the extrathoracic region are unremarkable. IMPRESSION: Probable congestive heart failure versus fluid overload. Underlying inflammatory or infectious process not excluded. Dictated and Authenticated by: Tom Delarosa MD. Ordering:EVAN Segovia MD
[2023-12-25] VITALS (158 sets, daily range): BP systolic 110–151; BP diastolic 39–77; PULSE 86–109; RESP 2–33; TEMP 36.4–37.9; O2SAT 88–100
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
[2023-12-25 00:57] LABS: Bilirubin Negative (Negative); Blood Negative (Negative); Clarity Clear (Clear); Glucose Negative (Negative); Ketones Negative (Negative); Leukocyte Esterase Negative (Negative); Nitrite Negative (Negative); Urobilinogen 0.2 mg/dL (Up to 0.2); pH 5.5 (5-8)
[2023-12-25 01:16] LABS: Troponin I 88 ng/L (< or =60)
[2023-12-25] MEDS: Normal Saline 10 ML VIAL IJ (02:34)
[2023-12-25] MEDS: Lidocaine 2% Jelly 6 ML SYR TP (02:34)
[2023-12-25] MEDS: PIPERACILLIN/TAZO 3.375 GM in Normal Saline 50 ML IVPB ×4 (02:35→21:30)
[2023-12-25] MEDS: Pantoprazole 40 MG VIAL IVP ×3 (02:35→21:31)
[2023-12-25] MEDS: Furosemide 40 MG/4 ML VIAL IVP (02:36)
[2023-12-25] MEDS: Normal Saline Flush 10 ML SYR IVP ×4 (02:37→21:31)
[2023-12-25 02:52] LABS: MRSA PCR Negative (Negative)
[2023-12-25 02:57] LABS: INR 1.1 (0.9-1.1)
[2023-12-25 03:11] LABS: NT-proBNP 1667 pg/mL (<300)
[2023-12-25 03:42] LABS: Iron 44 ug/dL (65-175)
[2023-12-25 03:54] LABS: Ferritin 5 ng/mL (26-388)
[2023-12-25 04:14] LABS: Vitamin B12 270 pg/mL (193-986)
[2023-12-25 04:19] LABS: Folate > 20.0 ng/mL (8.6-20.0)
[2023-12-25] MEDS: Albuterol/Ipratropium 3 ML UPD VIAL UPD ×4 (05:30→23:14)
[2023-12-25 07:14] LABS: HCT 24.8 % (40.0-50.0); MCH 21.9 pg (27.0-33.0); MCHC 28.2 % (32.0-36.0); MCV 78 fL (80-95); Platelet Count 216 10^3/uL (130-400); RDW 20.6 % (11.8-14.1); WBC 9.52 10^3/uL (4.4-10.8)
[2023-12-25 07:37] LABS: ALT 34 U/L (16-63); AST 24 U/L (15-37); Albumin 3.6 g/dL (3.4-5.0); Alkaline Phosphatase 58 U/L (46-116); Anion Gap 11.5 mmol/L (3-11); BUN 20 mg/dL (7-18); Bilirubin, Total 1.45 mg/dL (0.2-1.0); CO2 27.5 mmol/L (21.0-32.0); CREATININE 1.4 mg/dL (0.70-1.30); Calcium 8.6 mg/dL (8.5-10.1); Chloride 105 mmol/L (98-107); Estimated GFR 51.77 (mL/min/1.73m2); Glucose 99 mg/dL (74-106); Potassium 4.3 mmol/L (3.5-5.1); Sodium 144 mmol/L (136-145); Total Protein 6.8 g/dL (6.4-8.2)
--- NOTE | 2023-12-25 07:38 | SCONE_ITS ---
Date of service: 12/25/23 Time of Service: 07:38 Assessment and Plan Assessment and plan (1) Acute blood loss anemia: Status: Acute Assessment and plan: despite the negative guaiac test, I do suspect the GI tract is likely the source of his anemia. The diverticulosis seen on the CT scan could certainly explain it, but with no previous screening colonoscopies, malignancy would also certainly be within the differential diagnosis here. In light of the uncertain history, and the challenges that the patient has expressing symptoms, it is probably worth doing an EGD at the time of colonoscopy to rule that out as well. I do not think it is an emergency at this point, and, in fact, it would be very reasonable to work this up as an outpatient. Furthermore, given the concern for diverticulitis referred to in the CT (although I am not entirely convinced of this based on his exam and normal white blood cell count) I think it is very reasonable to hold off on endoscopy until we have a little better understanding of his symptoms. I be okay with him having some clear liquids for now, and we can see how he responds to the blood transfusion. (2) Vitamin D deficiency: Status: Chronic (3) Elevated troponin I level: Status: Acute History of Present Illness History of Present Illness Chief Complaint: Anemia Narrative: Saleem is 78 years old. He resides at the [facility] where his been cared for over the past several months. He is mentally challenged, and is thought to be secondary to a episode of meningitis as a child. His family is no longer able to provide support of daily living. They have noticed that over the past few weeks, he seems to be increasingly lethargic, not acting himself. As part of the workup for this, his hemoglobin was tested, was found to be 5. He is microcytic as well. He was brought to the emergency department. He did undergo a CT of the abdomen and pelvis that demonstrated at least diverticulosis, and some area of acute inflammation that could be consistent with diverticulitis, or other pathology. He was Hemoccult tested and it was negative. I am consulted for consideration of endoscopy as part of his anemia workup. Review of Systems Narrative: The review of systems is significant limited by the patient's mental status, most of the details are obtained through the chart. Constitutional Constitutional: Reports lethargy and Reports weakness Cardiovascular Cardiovascular: Denies chest pain and Reports dyspnea on exertion Respiratory Respiratory: Reports cough and Reports dyspnea on exertion Gastrointestinal Gastrointestinal: Denies hematochezia, Reports change in stool character, Denies nausea and Denies vomiting Neurologic Neurologic: Reports weakness PFSH All Active Problems Elevated troponin I level (Acute) Mentally challenged (Chronic) Hyperlipidemia (Chronic) Vitamin D deficiency (Chronic) COPD (chronic obstructive pulmonary disease) with emphysema (Chronic) Acute blood loss anemia (Acute) Iron deficiency anemia due to chronic blood loss (Chronic) BPH with obstruction/lower urinary tract symptoms (Chronic) Diverticulitis large intestine (Acute) HTN (hypertension) (Chronic) Pulmonary edema (Acute) Colitis (Acute) CHF (congestive heart failure) (Chronic) Anemia (Chronic) Nail dystrophy (Acute) Social History Smoking/Tobacco Use Status: Former Tobacco Use Smoking risk assessment performed?: Yes Alcohol Intake: never Housing: snf Exam Const General: cooperative and comfortable Nutritional Appearance: overweight Orientation: alert and awake HENMT Head: normal to inspection Eyes General: appearance normal, both eyes and all related structures Neck Neck: normal visual inspection, full ROM and no lymphadenopathy Resp Effort & Inspection: normal respiratory effort and able to speak in complete sentences Auscultation: clear to auscultation bilaterally Cardio Rate: regular rate Rhythm: regular rhythm GI Inspection: normal to inspection Palpation: soft, no guarding, no hernias and nontender Percussion: normal to percussion Auscultation: normal bowel sounds Results Last Vital Signs Temp 98.4 F 12/25/23 06:50 Pulse 96 H 12/25/23 07:01 Resp 25 H 12/25/23 07:01 BP 112/63 12/25/23 07:01 Pulse Ox 97 12/25/23 07:01 Labs 12/25/23 10:00 12/25/23 05:58 Labs: Laboratory Results - last 24 hr 12/24/23 12/24/23 12/24/23 12:02 12:20 21:24 WBC RBC Hgb Hct MCV MCH MCHC RDW Plt Count MPV Immature Gran % Neutrophils % Lymphocytes % Monocytes % Eosinophils % Basophils % Nucleated RBC % Absolute Neutrophils Absolute Lymphocytes Absolute Monocytes Absolute Eosinophils Absolute Basophils RBC Morphology Hypochromasia Poikilocytosis Anisocytosis PT INR VBG Lactate 2.3 H* Sodium Potassium Chloride Carbon Dioxide Anion Gap BUN Creatinine Est GFR (CKD-EPI 2020) Glucose Calcium Magnesium Iron Ferritin Total Bilirubin AST ALT Alkaline Phosphatase Troponin I NT-Pro-B Natriuret Pep Total Protein Albumin Vitamin B12 Folate Urine Color Urine Clarity Urine pH Ur Specific [place] Urine Protein Urine Ketones Urine Blood Urine Nitrite Urine Bilirubin Urine Urobilinogen Ur Leukocyte Esterase Urine Glucose MRSA (TEM-PCR) ABO/Rh A Positive Blood Type Recheck Cancelled A Positive Antibody Screen NEGATIVE Crossmatch See Detail 12/24/23 12/25/23 12/25/23 21:25 00:25 00:50 WBC 8.53 RBC 2.82 L Hgb 5.5 L* Hct 21.3 L MCV 76 L MCH 19.5 L MCHC 25.8 L RDW 21.6 H Plt Count 243 MPV Immature Gran % 1.4 Neutrophils % 68.7 Lymphocytes % 17.9 Monocytes % 8.2 Eosinophils % 3.4 Basophils % 0.4 Nucleated RBC % 0.5 H Absolute Neutrophils 5.86 Absolute Lymphocytes 1.53 Absolute Monocytes 0.70 Absolute Eosinophils 0.29 Absolute Basophils 0.03 RBC Morphology See Below Hypochromasia 2+ Poikilocytosis 2+ Anisocytosis 1+ PT INR VBG Lactate Cancelled Sodium 142 Potassium 4.3 Chloride 107 Carbon Dioxide 25.5 Anion Gap 9.5 BUN 24 H Creatinine 1.4 H Est GFR (CKD-EPI 2020) 51.77 Glucose 123 H Calcium 9.4 Magnesium 2.1 Iron Ferritin Total Bilirubin 0.48 AST 19 ALT 28 Alkaline Phosphatase 62 Troponin I < 50 88 H* NT-Pro-B Natriuret Pep Total Protein 7.4 Albumin 3.9 Vitamin B12 Folate Urine Color Yellow Urine Clarity Clear Urine pH 5.5 Ur Specific [place] 1.010 Urine Protein Negative Urine Ketones Negative Urine Blood Negative Urine Nitrite Negative Urine Bilirubin Negative Urine Urobilinogen 0.2 Ur Leukocyte Esterase Negative Urine Glucose Negative MRSA (TEM-PCR) ABO/Rh Blood Type Recheck Antibody Screen Crossmatch 12/25/23 12/25/23 01:17 02:20 WBC RBC Hgb Hct MCV MCH MCHC RDW Plt Count MPV Immature Gran % Neutrophils % Lymphocytes % Monocytes % Eosinophils % Basophils % Nucleated RBC % Absolute Neutrophils Absolute Lymphocytes Absolute Monocytes Absolute Eosinophils Absolute Basophils RBC Morphology Hypochromasia Poikilocytosis Anisocytosis PT 11.0 INR 1.1 VBG Lactate Sodium Potassium Chloride Carbon Dioxide Anion Gap BUN Creatinine Est GFR (CKD-EPI 2020) Glucose Calcium Magnesium Iron 44 L Ferritin 5 L Total Bilirubin AST ALT Alkaline Phosphatase Troponin I NT-Pro-B Natriuret Pep 1667 H Total Protein Albumin Vitamin B12 270 Folate > 20.0 H Urine Color Urine Clarity Urine pH Ur Specific [place] Urine Protein Urine Ketones Urine Blood Urine Nitrite Urine Bilirubin Urine Urobilinogen Ur Leukocyte Esterase Urine Glucose MRSA (TEM-PCR) Negative ABO/Rh Blood Type Recheck Antibody Screen Crossmatch Imaging Abdomen CT scan report/results: report reviewed and image reviewed CT scan - pelvis: report reviewed and image reviewed
[2023-12-25] MEDS: dilTIAZem 30 MG TAB PO ×3 (07:51→21:31)
[2023-12-25] MEDS: Fluticasone NASAL SPRAY 16 GM BTL NS (08:44)
[2023-12-25] MEDS: IRON SUCROSE COMPLEX 400 MG in Normal Saline 250 ML 100 MG IVPB (09:11)
--- NOTE | 2023-12-25 09:13 | PDOC.CMIN ---
Date of service: 12/25/23 Time of Service: 09:13 Care Management Initial Assmt Initial Assessment Reason for Hospitalization: anemia Functional Status/Living Situation Patient Presentation: Saleem was sitting up in bed visiting with his niece Shara when CM met with him. He was awake and alert but did not engage much in conversAtion. shara explained that Saleem had meNingitis as a young child and was left with some deficits. he was cared for by his parents and then his brother who is Shara's father. She grew up with Saleem allison in her home and when her Dad was unable to care for him, she and her sister Neva assumed the role. Saleem was placed at the [facility] last March. He is still able to dress and feed himself but does need help with showering and bathing. he is also able to ambulate for short distances with a walker. Saleem enjoys watching tv, particularly mysteries and Wheel of Fortune. Town of Residence: [place] Resides with: Other (SNF) Significant Other/Family: Local Employment Status: Disabled Instrumental Activities of Daily Living (ADLs): Requires support Medications Medication Management: No Issues/Barriers identified Advance Directives Advance Directives: Do you have an Advance Directive: N 08/24/15 08:22 AD On File at [facility]: N 04/09/14 08:08 Date Asked 12/24/23 12/24/23 16:21 AD Date Reviewed COLST On File at [facility] COLST Date Scanned Code Status Resuscitation Status DNR/DNI Portal Pt does not currently have a portal and education provided: No Portal Education: Other (developmental delay) Insurance Coverage/Financial Issues Insurance: Medicare Medicaid Care Team Visit Care Team Role Provider Type Rhonda Fuentes Primary Care Provider NURSE PRACTITIONER Isreal Hernández MD Other Providers [facility] STAFF PHYSICIAN SAVANNAH Ragland Emergency Provider [employer] Collin Barth Admit Provider NON-[facility] STAFF PHYSICIAN Attending Provider Discharge Potential Discharge Needs: Other (SNF) Anticipated Barriers to Discharge: None Identified Patient/Family Education Needs: Review discharge instructions, discuss Ask Me Three Transportation: EMS Plan: Anticipate Saleem will return to the [facility] when medically stable. He will follow up with the facility providers and plan of care and transport via EMS coordinated by CM. CM will follow and continue to assess for discharge needs. PFSH All Active Problems (Updated 12/25/23 @ 10:15 by Vladimir Greer MD) Elevated troponin I level (Acute) Mentally challenged (Chronic) Hyperlipidemia (Chronic) Vitamin D deficiency (Chronic) COPD (chronic obstructive pulmonary disease) with emphysema (Chronic) Acute blood loss anemia (Acute) Iron deficiency anemia due to chronic blood loss (Chronic) BPH with obstruction/lower urinary tract symptoms (Chronic) Diverticulitis large intestine (Acute) HTN (hypertension) (Chronic) Pulmonary edema (Acute) Colitis (Acute) CHF (congestive heart failure) (Chronic) Anemia (Chronic) Nail dystrophy (Acute) Social History Smoking/Tobacco Use Status: Former Tobacco Use Smoking risk assessment performed?: Yes Alcohol Intake: never Housing: senior care SDOH(Care Management) Screening Will the Patient Participate in the Screening?: Unable to obtain Problems where you live: no known problems Social Determinants of Health Comments(SDOH Details): pt incompetent to answer questions. lives at [facility]
--- NOTE | 2023-12-25 09:48 | W.PM.PROGNOT ---
Date of Service Date of service: 12/25/23 Time of Service: 09:48 Assessment and Plan Assessment and plan (1) Acute blood loss anemia: Start date: 12/25/23 Status: Acute Assessment and plan: This is a 78-year-old gentleman [facility] in a [facility]entiary for many years. He has chronic blood loss anemia on Carafate but no microcytosis or severe anemia by labs done in June now with his hemoglobin acutely dropping from 13 g/dL to 5 g/dL requiring transfusion of 2 units of packed red blood cells. He has had fatigue and decreased appetite and does have possible diverticulitis on CT imaging. Malignancy is also a possibility. Posttransfusion hemoglobin is 7 g repeat H&H is pending at this time. Serum ferritin level was low 5, Low normal B12 level of 270 pg/mL, folate level is greater than 20 nanograms per mL, low serum iron level of 16 mcg/dL with a normal TIBC at 384 mcg/dL and a low transferrin saturation of 4%. These findings are consistent with chronic iron deficiency anemia although I cannot exclude possible concomitant B12 deficiency. Methylmalonic acid level and homocystine levels have been sent out. Patient has been started on Venofer for his anemia (2) Diverticulitis large intestine: Start date: 12/25/23 Status: Acute Assessment and plan: IV Zosyn with blood cultures prior. Follow-up surgical consultation. Qualifiers: Diverticulitis bleeding: with bleeding Diverticulitis complication: without perforation or abscess Qualified Code(s): K57.33 - Diverticulitis of large intestine without perforation or abscess with bleeding (3) Iron deficiency anemia due to chronic blood loss: Status: Chronic Assessment and plan: as above (4) HTN (hypertension): Status: Chronic Assessment and plan: Continue Cardizem and split dosing. Update echocardiogram given his hypoxemia, elevated BNP of 1600. Qualifiers: Hypertension type: primary hypertension Qualified Code(s): I10 - Essential (primary) hypertension (5) BPH with obstruction/lower urinary tract symptoms: Status: Chronic Assessment and plan: Enlarged prostate with some bone lesions in the pelvis. Check PSA. Alkaline phosphatase was not elevated. (6) COPD (chronic obstructive pulmonary disease) with emphysema: Status: Chronic Assessment and plan: Continue nebulizer treatments while hospitalized. Qualifiers: Emphysema type: other Qualified Code(s): J43.8 - Other emphysema (7) Hyperlipidemia: Status: Chronic Assessment and plan: Patient not on statin by review of med list that this will be held for now. Qualifiers: Hyperlipidemia type: mixed hyperlipidemia Qualified Code(s): E78.2 - Mixed hyperlipidemia (8) Mentally challenged: Status: Chronic Assessment and plan: Decreased mental capacity since child status post meningitis requiring supervision by family at first with his mother and then with his brother now placed at the [facility] with his nieces as co-guardian's since March 2023. Subjective Subjective Interval history since last seen: Saleem states he feels better this morning he denies any chest pain or abdominal pain but admits to some mild dyspnea. He presented with generalized fatigue weakness loss of appetite was found to have sigmoid diverticulitis last night. He was also found to be severely anemic with a hemoglobin of 5.2 g and was transfused 2 units of packed red cells last night. Repeat hemoglobin was 7 g this morning after the first unit and another H&H is pending at this time. Echocardiogram was ordered to evaluate LV and RV function as the patient was felt to have some mild congestive heart failure. He was given a dose of Lasix prior to his transfusions but no further diuretic has been given. He is still requiring supplemental oxygen. I met with his niece, Shara Sanchez, who says that the patient had previously lived with her family since she was 6 years old but was recently placed into the [facility] in March 2023 as his needs for fci have increased. Shara expressed concern that she had noticed on December when they took him out for his birthday that he was not looking right he appeared to be yellow fatigue and had no appetite. They brought their concerns to the nursing staff at the [facility] and she is concerned that it took them this long to evaluate him. I explained to Shara that the plan would be to treat the diverticulitis with antibiotics monitor his blood count and transfuse as needed if his hemoglobin is below 7 g and work him up for CHF and treat CHF appropriately with diuretics. However I also explained that it is possible he may have an underlying colon malignancy which led to an iron deficiency anemia and he would eventually need a colonoscopy but this would not be pursued immediately due to the acute inflammation of his sigmoid colon. Exam Narrative Exam Narrative: Normal sitting up in bed appears to be in no acute distress he seems to be alert oriented person place circumstance HEENT is unremarkable Neck is supple no overt JVD Lungs are clear anteriorly but still he has some fine bibasilar rales no rhonchi or wheezing Heart is regular rate and rhythm distant heart tones no appreciable murmur rub Abdomen is obese soft and nontender without guarding or rebound tenderness he has active bowel sounds Lower extremities without peripheral cyanosis or edema Objective Last Vital Signs Temp 37.0 C 12/25/23 07:30 Pulse 96 H 12/25/23 07:01 Resp 25 H 12/25/23 07:01 BP 112/63 12/25/23 07:01 Pulse Ox 93 12/25/23 08:45 Laboratory Results - last 24 hr 12/24/23 12/24/23 12/24/23 12:02 12:20 21:24 WBC RBC Hgb Hct MCV MCH MCHC RDW Plt Count MPV Immature Gran % Neutrophils % Lymphocytes % Monocytes % Eosinophils % Basophils % Nucleated RBC % Absolute Neutrophils Absolute Lymphocytes Absolute Monocytes Absolute Eosinophils Absolute Basophils RBC Morphology Hypochromasia Poikilocytosis Anisocytosis PT INR VBG Lactate 2.3 H* Sodium Potassium Chloride Carbon Dioxide Anion Gap BUN Creatinine Est GFR (CKD-EPI 2020) Glucose Calcium Magnesium Iron Ferritin Total Bilirubin AST ALT Alkaline Phosphatase Troponin I NT-Pro-B Natriuret Pep Total Protein Albumin Vitamin B12 Folate Urine Color Urine Clarity Urine pH Ur Specific [place] Urine Protein Urine Ketones Urine Blood Urine Nitrite Urine Bilirubin Urine Urobilinogen Ur Leukocyte Esterase Urine Glucose MRSA (TEM-PCR) ABO/Rh A Positive Blood Type Recheck Cancelled A Positive Antibody Screen NEGATIVE Crossmatch See Detail 12/24/23 12/25/23 12/25/23 21:25 00:25 00:50 WBC 8.53 RBC 2.82 L Hgb 5.5 L* Hct 21.3 L MCV 76 L MCH 19.5 L MCHC 25.8 L RDW 21.6 H Plt Count 243 MPV Immature Gran % 1.4 Neutrophils % 68.7 Lymphocytes % 17.9 Monocytes % 8.2 Eosinophils % 3.4 Basophils % 0.4 Nucleated RBC % 0.5 H Absolute Neutrophils 5.86 Absolute Lymphocytes 1.53 Absolute Monocytes 0.70 Absolute Eosinophils 0.29 Absolute Basophils 0.03 RBC Morphology See Below Hypochromasia 2+ Poikilocytosis 2+ Anisocytosis 1+ PT INR VBG Lactate Cancelled Sodium 142 Potassium 4.3 Chloride 107 Carbon Dioxide 25.5 Anion Gap 9.5 BUN 24 H Creatinine 1.4 H Est GFR (CKD-EPI 2020) 51.77 Glucose 123 H Calcium 9.4 Magnesium 2.1 Iron Ferritin Total Bilirubin 0.48 AST 19 ALT 28 Alkaline Phosphatase 62 Troponin I < 50 88 H* NT-Pro-B Natriuret Pep Total Protein 7.4 Albumin 3.9 Vitamin B12 Folate Urine Color Yellow Urine Clarity Clear Urine pH 5.5 Ur Specific [place] 1.010 Urine Protein Negative Urine Ketones Negative Urine Blood Negative Urine Nitrite Negative Urine Bilirubin Negative Urine Urobilinogen 0.2 Ur Leukocyte Esterase Negative Urine Glucose Negative MRSA (TEM-PCR) ABO/Rh Blood Type Recheck Antibody Screen Crossmatch 12/25/23 12/25/23 12/25/23 01:17 02:20 05:58 WBC 9.52 RBC 3.20 L Hgb 7.0 L* Hct 24.8 L MCV 78 L MCH 21.9 L MCHC 28.2 L D RDW 20.6 H Plt Count 216 MPV Immature Gran % Neutrophils % Lymphocytes % Monocytes % Eosinophils % Basophils % Nucleated RBC % Absolute Neutrophils Absolute Lymphocytes Absolute Monocytes Absolute Eosinophils Absolute Basophils RBC Morphology Hypochromasia Poikilocytosis Anisocytosis PT 11.0 INR 1.1 VBG Lactate Sodium 144 Potassium 4.3 Chloride 105 Carbon Dioxide 27.5 Anion Gap 11.5 H BUN 20 H Creatinine 1.4 H Est GFR (CKD-EPI 2020) 51.77 Glucose 99 Calcium 8.6 Magnesium 2.0 Iron 44 L Ferritin 5 L Total Bilirubin 1.45 H AST 24 ALT 34 Alkaline Phosphatase 58 Troponin I NT-Pro-B Natriuret Pep 1667 H Total Protein 6.8 Albumin 3.6 Vitamin B12 270 Folate > 20.0 H Urine Color Urine Clarity Urine pH Ur Specific [place] Urine Protein Urine Ketones Urine Blood Urine Nitrite Urine Bilirubin Urine Urobilinogen Ur Leukocyte Esterase Urine Glucose MRSA (TEM-PCR) Negative ABO/Rh Blood Type Recheck Antibody Screen Crossmatch Time Spent with Patient Time Spent with Patient: 35-49 minutes Time was spent: preparing to see the patient(eg.review tests), ordering medications,tests, procedures, referring, communicating with other health behavioral health care manager, indepentently interpreting results, counseling the patient (and patient's niece, Shara Sanchez) and care coordination
--- NOTE | 2023-12-25 10:00 | RT.EKG_ITS ---
APPROVED REPORT Exam: Resting ECG Reason for Exam: elevated troponin I Patient Location: I HR:95 bpm ECG Measurements Heart Rate 95 AXIS AR 137 P 53 QRSd 101 QRS 11 QT 353 T 58 QTc 444 Conclusion Sinus rhythm...normal P axis, V-rate 50- [address] depression, anterior leads...ST <-0.03mV, V2-V4
[2023-12-25 10:03] LABS: HCT 25.8 % (40.0-50.0); HGB 7.4 g/dL (13.5-17.5)
[2023-12-25] MEDS: Furosemide 20 MG/2 ML VIAL IVP ×2 (10:31→17:01)
[2023-12-25] MEDS: Cholecalciferol (Vitamin D3) 1,000 UNIT TAB 1000 UNITS PO (10:31)
[2023-12-25 10:36] LABS: Lab Add On Test DONE
[2023-12-25 11:51] LABS: Troponin I 390 ng/L (< or =60)
--- NOTE | 2023-12-25 11:57 | PHA.REVIEW2 ---
Pharmacy Admission Review Admission Clinical Review Admission Pharmacy Review: Elevated troponin I level (Acute) Acute blood loss anemia (Acute) Diverticulitis large intestine (Acute) Pulmonary edema (Acute) Colitis (Acute) No Known Allergies Allergy (Unverified 12/24/23 21:26) Resuscitation Status DNR/DNI Height 5 ft 2 in Weight 90 kg Comments Comments/Follow Ups: Follow H/H, watch renal function for dose adjustments, patient will return to the [facility] upon discharge Pharmacy Admission Review Renal Dosing Renal Dosing: BUN 20 mg/dL (7-18) H 12/25/23 05:58 Creatinine 1.4 mg/dL (0.70-1.30) H 12/25/23 05:58 Crcl~43ml/min Medications needing adjustments: Reviewed (No med adjustments, possible Zosyn IF CrCl < 40ml/min) Anticoagulation Anticoagulation: Hgb 7.4 g/dL (13.5-17.5) L 12/25/23 10:00 Hct 25.8 % (40.0-50.0) L 12/25/23 10:00 Plt Count 216 10^3/uL (130-400) 12/25/23 05:58 INR 1.1 (0.9-1.1) 12/25/23 02:20 Creatinine 1.4 mg/dL (0.70-1.30) H 12/25/23 05:58 DVT Prophylaxis: N/A (Anemia, rec'd 2 units blood) Opiate Usage Evaluate Pain Scale/Pains Meds: N/A (no pain) Relevant Labs Relevant Labs: Sodium 144 mmol/L (136-145) 12/25/23 05:58 Potassium 4.3 mmol/L (3.5-5.1) 12/25/23 05:58 Chloride 105 mmol/L (98-107) 12/25/23 05:58 Magnesium 2.0 mg/dL (1.8-2.4) 12/25/23 05:58 Iron panel low, rec'd Venofer 400mg x1 Cardiac Review Cardiac Review: Troponin I 390 ng/L (< or =60) H* 12/25/23 10:55 NT-Pro-B Natriuret Pep 1667 pg/mL (<300) H 12/25/23 02:20 Troponin ++ (88, then 390) CHF-on Lasix IVP BP, HR, EF%: Reviewed (BP 118/63, HR 97, on 1 liter oxygen with Sats 89%) List meds needing interventions: Diltiazem is 30mg po TID with hold parameters, watch for transition to once daily if appropriate QTc Review QTc: Reviewed (QTC 456) IV to PO Switch IV Medications: Reviewed (Lasix, Protonix, Antibiotic) Home Meds Home Med List reviewed: Reviewed Relevent Home Meds Not ordered & why?: Lovastatin 20mg daily-currently on hold, last filled 10/17/23; Sucralfate ordered for short 14 days of therapy, Diltiazem @ home is 60mg ER daily Current Meds Current Medication Order Review: Reviewed Pharmacy Antibiotic Review Relevant Labs: WBC 9.52, Afebrile Pharmacy Antibiotic Activity: Reviewed, no change (Zosyn for Diverticulitis, scope end of this week) Comments Comments/Follow Ups: Follow H/H, watch renal function for dose adjustments, patient will return to the [facility] upon discharge
--- NOTE | 2023-12-25 15:48 | PT.INIE ---
PT Notes Visit Reasons: Acute blood loss anemia, CHF Inpatient Physical Therapy Evaluation Certification Period:? From ?? Through I certify the need for these services as being medically necessary and skilled as furnished under this plan of treatment while under my care. Please sign and return within 14 days if you agree with the plan of care listed below.? Thank you for this referral! ? Referring Physician? Date Referring Doctor:? Dr Greer PT Orders: PT CONSULT for exacerbation of condition Precautions: Juve araujo Patient Profile/Admitting Diagnosis:? The patient is a 78yo male adm on 12/24/23 from [facility] with acute drop in hemoglobin. Medical work up in ED included 2u pRBC and IV zosyn for diverticulitis with Surgical consult pending. Imaging revealed enlarged Prostate and lesions to bones of his pelvis. Pt also treated with IV Lasix for fluid overload with h/o CHF. Pt transferred to ICU for continued medial monitoring and management. Past Medical History:Mentally challenged (Chronic) Hyperlipidemia (Chronic) Vitamin D deficiency (Chronic) COPD (chronic obstructive pulmonary disease) with emphysema (Chronic) Acute blood loss anemia (Acute) Iron deficiency anemia due to chronic blood loss (Chronic) BPH with obstruction/lower urinary tract symptoms (Chronic) Diverticulitis large intestine (Acute) HTN (hypertension) (Chronic) Pulmonary edema (Acute) Colitis (Acute) CHF (congestive heart failure) (Chronic) Anemia (Chronic) Nail dystrophy (Acute) Social History/Home Situation: Resides at [facility]. Recently started to use a FWW for ambulation ~ 1 week. He walks to meals without device prior to recent use of FWW. Assist for ADL. He goes out with family to community events / dinners Subjective: Pt reports He feels better today, Niece reports he will says he is doing better even when he is not. Objective: Pt supine in bed with telemetry oxygen and earl catherter in place. Pt warm to touch Nurse reports low grade temp since admission. Pt agreeable to participate with his niece present. 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 CMS Score: Informed Consent/Education:? Patient instructed in purpose of PT consult and plan of care and is agreeable Assessment:? Patient is a? 78year old male adm on 12/24/2023 for.? Patient presents with oxygen dependency,, decreased strength, decreased functional mobility, decreased balance and difficulty with ambulation. The patient would benefit from skilled inpatient services to improve these impairments to maximize function and safety and return to [facility] with continued PT services . Patient is assessed as:?? Moderate 50098?? complexity based on the following: History:Pt is a 78yo male presenting with acute anemia fluid overload Oxygen dependent. Examination: see above Presentation: ? Evolving clinical presentation? Decision Making:? Moderate (1-2 history, 2-3 exam, evolving, ) Physical Therapy Goals: 1 week Able to get in/out of bed with supervision only. Able to perform sit to/from stand with supervision only. Able to walk 150 feet with rolling walker with supervision only. supervision with home exercise program Plan of Care/Treatment Plan: 1-2x/day, 7 days/week x 1 week. Plan of care has been reviewed with the OFFICE AGENT providing the service under Physical Therapy direction. Initiate Physical Therapy intervention for strengthening, bed mobility, transfers, gait, stairs, balance training, use of assistive device. DISCHARGE RECOMMENDATIONS: Return to [facility] with continued PT when medically appropriate Billing Charges: Treatment Units Time Duration Manual Therapy(57179) Hands-on techniques to modulate pain increase joint range of motion reduce or eliminate soft tissue swelling, inflammation, or restriction facilitate relaxation and improve contractile and non-contractile tissue extensibility ? ? Therapeutic Procedures (98088) Instruction in therapeutic exercises to develop strength and endurance, range of motion and flexibility. HEP instruction and review: Provided skilled instruction in proper exercise performance: Provided skilled manual cues to facilitate proper muscle recruitment and/or movement pattern Neurological Re-Education(93773) To improve balance, coordination, kinesthetic and proprioceptive sensations. ? ? Ultrasound(38816) To promote healing. ? ? Gait Training(01510) ? ? Therapeutic Activity(83995) Instruction in dynamic activities with one on one patient contact by the provider to improve functional performance as follows: ?1 ?20 mins Self Care Training(02422) ? ? E-Stim (Attended)(95829) ? ? Low IE(92830) Mod IE(60502) ?1 ?20 mins High IE(01916) ? ? Time Coded Treatment Time ? Total Treatment Time ? 40 mins
[2023-12-25 18:32] LABS: Troponin I 271 ng/L (< or =60)
[2023-12-25 19:01] LABS: PSA, Diagnostic 3.9 ng/mL (<=6.5)
[2023-12-25] MEDS: Acetaminophen 325 MG TAB PO (21:30)
[2023-12-26] VITALS (52 sets, daily range): BP systolic 103–150; BP diastolic 47–87; PULSE 84–100; RESP 2–29; TEMP 36.3–37.4; O2SAT 87–96
[2023-12-26] MEDS: PIPERACILLIN/TAZO 3.375 GM in Normal Saline 50 ML IVPB ×2 (02:47→07:52)
[2023-12-26] MEDS: Albuterol/Ipratropium 3 ML UPD VIAL UPD ×3 (05:43→23:58)
[2023-12-26 07:41] LABS: Troponin I 146 ng/L (< or =60)
[2023-12-26] MEDS: Cholecalciferol (Vitamin D3) 1,000 UNIT TAB 1000 UNITS PO (07:53)
[2023-12-26] MEDS: dilTIAZem 30 MG TAB PO ×3 (07:53→20:44)
[2023-12-26] MEDS: Furosemide 20 MG/2 ML VIAL IVP ×2 (07:53→16:45)
[2023-12-26] MEDS: Pantoprazole 40 MG VIAL IVP ×2 (07:53→20:44)
[2023-12-26] MEDS: Normal Saline Flush 10 ML SYR IVP ×4 (07:54→20:45)
[2023-12-26 08:00] LABS: Abs Immature Grans 0.48 10^3/uL (0.0-0.06); Absolute Basophil Count 0.08 10^3/uL (0.0-0.2); Absolute Eosinophil Count 0.32 10^3/uL (0.0-0.7); Absolute Lymphocyte Count 1.33 10^3/uL (1.2-3.4); Absolute Monocyte Count 0.93 10^3/uL (0.1-0.8); Absolute Neutrophil Count 7.21 10^3/uL (1.2-6.7); Basophils % 0.8 %; Eosinophils % 3.1 %; HGB 7.3 g/dL (13.5-17.5); Immature Grans % 4.6 %; Lymphocytes % 12.9 %; MCH 22.1 pg (27.0-33.0); MCHC 28.1 % (32.0-36.0); MCV 79 fL (80-95); Neutrophils % 69.6 %; Nucleated RBC 0.7 % (0.0-0.3); Platelet Count 213 10^3/uL (130-400); RBC 3.31 10^6/uL (4.36-5.78); RDW-SD 59.1 fL; WBC 10.35 10^3/uL (4.4-10.8)
[2023-12-26] MEDS: Fluticasone NASAL SPRAY 16 GM BTL NS (08:02)
[2023-12-26 08:03] LABS: Magnesium 1.9 mg/dL (1.8-2.4)
[2023-12-26 08:04] LABS: BUN 14 mg/dL (7-18); CREATININE 1.6 mg/dL (0.70-1.30); Calcium 8.8 mg/dL (8.5-10.1); Chloride 105 mmol/L (98-107); Glucose 96 mg/dL (74-106); Potassium 3.7 mmol/L (3.5-5.1); Sodium 143 mmol/L (136-145)
[2023-12-26 08:28] LABS: Anisocytosis 2+; Diff Comment Diff Reviewed; Hypochromasia 3+
[2023-12-26 08:31] LABS: Poikilocytes 2+
[2023-12-26] MEDS: IRON SUCROSE COMPLEX 400 MG in Normal Saline 250 ML 100 MG IVPB (08:33)
--- NOTE | 2023-12-26 09:03 | PGE_ITS ---
Date of Service Date of service: 12/26/23 Time of Service: 09:03 Assessment and Plan Assessment and plan (1) HTN (hypertension): Status: Chronic Qualifiers: Hypertension type: primary hypertension Qualified Code(s): I10 - Essential (primary) hypertension (2) CHF (congestive heart failure): Status: Chronic Assessment and plan: See echo from this admission (3) Elevated troponin I level: Status: Acute Assessment and plan: Thought to be due to demand ischemia (4) Hyperlipidemia: Status: Chronic Qualifiers: Hyperlipidemia type: mixed hyperlipidemia Qualified Code(s): E78.2 - Mixed hyperlipidemia (5) Vitamin D deficiency: Status: Chronic (6) BPH with obstruction/lower urinary tract symptoms: Status: Chronic (7) Anemia: Status: Chronic (8) Iron deficiency anemia due to chronic blood loss: Status: Chronic Assessment and plan: severe The patient did receive 3 units of blood and iron sucrose. Etiology of blood loss is unknown. It is unknown if he has ever had a EGD or colon before. Niece is POA and gives consent We will try bowel prepping and do a EGD and [place] in AM. I do not feel patient has diverticulitis. Because of the late start prep may be poor but at least we can do an EGD. We will need to reach out to his niece for consent I have approval from anesthesia to proceed Speech evaluation appreciated I did review the case with Dr. Betancourt of them This document was created with voice activated software and may contain errors. This 15 mins spent in direct pt care and 35 in non face to face time (9) Acute blood loss anemia: Status: Acute (10) Mentally challenged: Status: Chronic (11) Diverticula of colon: Status: Acute Assessment and plan: CT: MPRESSION:: Question of mild sigmoid diverticulitis. Small pleural effusions and increased interstitial markings could indicate CHF. (12) Acute hypoxemic respiratory failure: Status: Acute Assessment and plan: -requiring 6L O2 this am fluid overload vs CHF vs pneumonia -cxr pd NT peptide pd Subjective Subjective Interval history since last seen: Patient seen and examined. He is tolerating p.o.'s. He has had a bowel mov ement since he has been in the hospital that was guaiac negative. Patient cannot really give any history. He denies any abdominal pain. He is eating good while he is here in the hospital. He was noted at the [facility] to be getting more weak and short of breath and was having to use a wheelchair when he never required 1 before. There is no mention of any abdominal pain or blood in his stools. He has been eating well since he has been in the hospital Exam Narrative Exam Narrative: Abdomen is soft and nontender Lungs are clear to auscultation Heart is regular rhythm Objective Last Vital Signs Temp 36.4 C L 12/26/23 08:07 Pulse 97 H 12/26/23 08:07 Resp 20 12/26/23 08:07 BP 122/67 12/26/23 08:07 Pulse Ox 93 12/26/23 08:07 Laboratory Results - last 24 hr 12/25/23 12/25/23 12/25/23 10:00 10:14 10:55 WBC RBC Hgb 7.4 L Hct 25.8 L MCV MCH MCHC RDW Plt Count MPV Immature Gran % Neutrophils % Lymphocytes % Monocytes % Eosinophils % Basophils % Nucleated RBC % Absolute Neutrophils Absolute Lymphocytes Absolute Monocytes Absolute Eosinophils Absolute Basophils RBC Morphology Hypochromasia Poikilocytosis Anisocytosis Sodium Potassium Chloride Carbon Dioxide Anion Gap BUN Creatinine Est GFR (CKD-EPI 2020) Glucose Calcium Magnesium Troponin I 390 H* Add-On Test Request DONE 12/25/23 12/26/23 17:57 06:04 WBC 10.35 RBC 3.31 L Hgb 7.3 L Hct 26.0 L MCV 79 L MCH 22.1 L MCHC 28.1 L RDW 21.0 H Plt Count 213 MPV Immature Gran % 4.6 Neutrophils % 69.6 Lymphocytes % 12.9 Monocytes % 9.0 Eosinophils % 3.1 Basophils % 0.8 Nucleated RBC % 0.7 H Absolute Neutrophils 7.21 H Absolute Lymphocytes 1.33 Absolute Monocytes 0.93 H Absolute Eosinophils 0.32 Absolute Basophils 0.08 RBC Morphology See Below Hypochromasia 3+ Poikilocytosis 2+ Anisocytosis 2+ Sodium 143 Potassium 3.7 Chloride 105 Carbon Dioxide 27.0 Anion Gap 11.0 BUN 14 Creatinine 1.6 H Est GFR (CKD-EPI 2020) 44.10 Glucose 96 Calcium 8.8 Magnesium 1.9 Troponin I 271 H* 146 H* Add-On Test Request Time Spent with Patient Time Spent with Patient: >50 minutes Time was spent: preparing to see the patient(eg.review tests), obtaining and/or reviewing separately otained hiistory, ordering medications,tests, procedures, referring, communicating with other health wound care center consultant, indepentently interpreting results, counseling the patient, care coordination and other
--- NOTE | 2023-12-26 09:36 | CMPROGNOTE_ITS ---
Date of service: 12/26/23 Time of Service: 09:36 Care Management Progress Note Progress Note Text Progress Note Text: Saleem was lying in bed when CM met with him today. He engaged minimally, answering yes/no questions. Per report, he received a unit of blood today, and his Hgb increased to 8.8. CM discussed his discharge plan, which will be for him to return to the [facility] once he is medically cleared; Saleem expressed agreement to this plan. CM will continue to follow. Discharge Potential Discharge Needs: Other (Coordinated return to SNF) Anticipated Barriers to Discharge: None Identified Patient/Family Education Needs: Review discharge instructions, discuss Ask Me Three Transportation: Facility Transport Plan: Anticipate Saleem will return to the [facility] when medically stable. He will follow up with the facility providers and plan of care and transport via EMS coordinated by CM. CM will follow and continue to assess for discharge needs. SDOH(Care Management) Screening Will the Patient Participate in the Screening?: Unable to obtain Problems where you live: no known problems Social Determinants of Health Comments(SDOH Details): pt incompetent to answer questions. lives at the [facility]
[2023-12-26 09:59] LABS: Lab Add On Test DONE
[2023-12-26] MEDS: Sucralfate 1 GM TAB PO ×3 (11:19→22:06)
--- NOTE | 2023-12-26 11:20 | DI.RAD_ITS ---
Exam(s) XR PORTABLE CHEST AP EXAM: XR PORTABLE CHEST AP CLINICAL HISTORY: increase 02 demands TECHNIQUE: 2D digital imaging was performed. COMPARISON: CR,XR XR CHEST 2V PA LATERAL from 12/24/2023 FINDINGS: Exam limited by under penetration and multiple leads coiled over the chest as well semi-erect positi oning. LUNGS: Grossly clear. No pleural abnormality seen. HEART: Enlarged. AORTA: Normal diameter. BONES: Unremarkable for age. Soft tissues: Unremarkable. IMPRESSION: Limited exam. No acute findings. DATA REPOSITORY: RADIATION DOSE DELIVERED:
[2023-12-26] MEDS: diphenhydrAMINE 25 MG CAP PO (11:54)
[2023-12-26] MEDS: Acetaminophen 325 MG TAB 650 MG PO (11:54)
--- NOTE | 2023-12-26 12:49 | PTTR_ITS ---
PT Notes Visit Reasons: Acute blood loss anemia, CHF Inpatient Physical Therapy Treatment Note [facility] Date: 12/26/2023 PRECAUTIONS:IV mady RAI Telemetry SUBJECTIVE: I feel good OBJECTIVE: supine in bed with oxygen in place and IV infusing. family at bedside. Pt being transferred out of ICU to MEd Surg unit for continued medical management. ? PAIN:denies VITALS: ? Pre-Treatment: 6L/min 96 % ? Post-Treatment: 6L/min 64% Nurse reduce to 4L at end of session? Therapeutic Activities (94299m5): Direct one-on-one instruction in dynamic activities to improve functional performance. ? BED MOBILITY/TRANSFERS? Rolling L/R: SBA Supine-sit:CGA cues to initiate? Sit-supine: CGA and increase time ? Sit-stand: Min A and cues to push up from surface ? Stand-sit: CGA and tactile and verbal cues for hand placement? Bed-Chair: min A with FWW for safe approach to surface d/t impulsivity ? Chair-bed: min A with FWW for safe approach to surface, d/t impulsivity Provided skilled cues and instruction on performance and technique throughout. Gait Training (17690c0): Direct one-on-one instruction and skilled instruction in: [x] movement sequencing [x] turning and movement with proper form [x] Provided verbal cues for equipment management and technique [] Provided instruction in gait pattern [x] Patient education regarding pacing and breathing techniques to maximize activity tolerance? GAIT? Assistive Device: FWW? Weight bearing: full Assist: min/mod A to manage FWW reduce speed and sustain upright ? Distance:? 100 feet with 4 stand rest ? Deviation: reciprocal pattern with intermittent crossing of feet, increase forward weight shift, ? ASSESSMENT:? Pt demonstrates improvement in functional mobility and able to participate in gait training with FWW during AM session. He requires increase assistance for FWW management including reducing speed as pt becomes impulsive with increase carlos eduardo and difficulty controlling speed. As increase speed pt demonstrates crossover steps requiring stand stop rest to reorient body closer to FWW and to regain body allignment. During 2nd session pt noted to have increase lethargy reported to Nurse Hakan who stated pt recieved Benadryl in anticipation of blood transfusion. This is likely the cause of the lethargy with increase forward lean of trunk in seated position and during transfer to from [facility]. PLAN: continue strengthening, transfer training with LRD , balance and gait training with LRD TREATMENT CODE/TIME: 78717; 14408 / [id number] ,2nd session 91873 /[id number] DISCHARGE RECOMMENDATION: Return to [facility] with continued PT when medically appropriate
[2023-12-26] MEDS: Docusate Sodium 100 MG CAP PO ×2 (14:19→20:43)
--- NOTE | 2023-12-26 16:01 | PGE_ITS ---
Date of Service Date of service: 12/26/23 Time of Service: 16:01 Assessment and Plan Assessment and plan (1) Diverticulitis large intestine: Start date: 12/25/23 Status: Acute Assessment and plan: IV Zosyn, blood cultures no growth to date patient being evaluated for C scope for tomorrow (also EGD to elucidate source of blood loss anemia) Qualifiers: Diverticulitis bleeding: with bleeding Diverticulitis complication: without perforation or abscess Qualified Code(s): K57.33 - Diverticulitis of large intestine without perforation or abscess with bleeding (2) Acute blood loss anemia: Start date: 12/25/23 Status: Acute Assessment and plan: This is a 78-year-old gentleman who resides at the senior living after living in a longterm for many years. He has chronic blood loss anemia on Carafate but no microcytosis or severe anemia by labs done in June now with his hemoglobin acutely dropping from 13 g/dL to 5 g/dL requiring transfusion of 2 units of packed red blood cells. He has had fatigue and decreased appetite and does have possible diverticulitis on CT imaging. Malignancy is also a possibility. No active bleeding on admission. Repeat hemoglobin this morning 7.3 g stable since yesterday when it was 7.4 g. One more unit of PRBC was transfused today per order of Dr. Urrutia. She is evaluating him for possible EGD and c scope tomorrow. (3) Iron deficiency anemia due to chronic blood loss: Status: Chronic Assessment and plan: patient given Venofer and another unit of PRBC today (4) Heart failure with mid-range ejection fraction (HFmEF): Status: Acute Assessment and plan: Echocardiogram shows mild systolic impairment of his LV with an LVEF of 51% and global dysfunction no regional wall motion abnormalities however he does have pulmonary hypertension with an RVSP of 51 mm however the RV is not dilated nor there are RV systolic dysfunction. However he does have mild to moderate mitral regurgitation and mild to moderate tricuspid regurgitation. Patient had a mild troponin leak during this hospitalization probably related to the severe anemia he presented with. His EKG did not show any acute ischemic changes. However I am recommending to his niece that he have an outpatient stress MPI to rule out underlying ischemic heart disease. I think the troponin leak was a demand ischemia event. (5) Elevated troponin I level: Status: Acute Assessment and plan: Patient presented with a normal troponin less than 50 but this peaked at 390 ng/L and this morning has dropped down to 146 ng/L. Initial EKG on admission from the ED showed some subtle ST depression in the lateral leads I, aVL and V4 through V6. Follow-up ECG yesterday showed minimal persistent J-point depression across the anterolateral leads. Patient denies any chest pain. He has no regional wall motion abnormalities on his echocardiogram but she has a mild diffuse hypokinesis with an LVEF of 51%. This deserves follow-up stress MPI once his anemia has been corrected. (6) Pulmonary hypertension: Status: Acute Assessment and plan: RVSP of 51 mm. He has mild to moderate tricuspid regurgitation. Based on his history of severe snoring for many years and his obesity and increased neck circumference I suspect he has undiagnosed obstructive sleep apnea and he should pursue PSG upon discharge. (7) Tricuspid regurgitation: Status: Acute Qualifiers: Cardiac valve disease etiology: nonrheumatic Qualified Code(s): I36.1 - Nonrheumatic tricuspid (valve) insufficiency (8) Mitral regurgitation: Status: Chronic Qualifiers: Cardiac valve disease etiology: nonrheumatic Qualified Code(s): I34.0 - Nonrheumatic mitral (valve) insufficiency (9) HTN (hypertension): Status: Chronic Assessment and plan: Continue Cardizem and split dosing. 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 Check PSA. Alkaline phosphatase was not elevated. (11) COPD (chronic obstructive pulmonary disease) with emphysema: Status: Chronic Assessment and plan: Continue nebulizer treatments while hospitalized. Qualifiers: Emphysema type: other Qualified Code(s): J43.8 - Other emphysema (12) Hyperlipidemia: Status: Chronic Assessment and plan: Patient not on statin by review of med list that this will be held for now. Qualifiers: Hyperlipidemia type: mixed hyperlipidemia Qualified Code(s): E78.2 - Mixed hyperlipidemia (13) Mentally challenged: Status: Chronic Assessment and plan: Decreased mental capacity since child status post meningitis requiring supervision by family at first with his mother and then with his brother now placed at the [facility] with his nieces as co-guardian's since March 2023. (14) DVT prophylaxis: Status: Acute Assessment and plan: Patient is not a candidate for chemoprophylaxis therefore he is receiving SCD compression Subjective Subjective Interval history since last seen: Saleem states he is feeling better he denies any nausea vomiting or abdominal pain. Exam Narrative Exam Narrative: Saleem is lying in bed talking with his niece. Seems to be alert and oriented Lungs are clear Heart is regular rate and rhythm Abdomen obese soft and nontender no guarding Extremities without edema Objective Last Vital Signs Temp 37.2 C 12/26/23 15:43 Pulse 94 H 12/26/23 15:43 Resp 20 12/26/23 15:43 BP 108/64 12/26/23 15:43 Pulse Ox 93 12/26/23 15:43 Laboratory Results - last 24 hr 12/24/23 12/25/23 12/25/23 12:02 02:20 17:57 WBC RBC Hgb Hct MCV MCH MCHC RDW Plt Count MPV Immature Gran % Neutrophils % Lymphocytes % Monocytes % Eosinophils % Basophils % Nucleated RBC % Absolute Neutrophils Absolute Lymphocytes Absolute Monocytes Absolute Eosinophils Absolute Basophils RBC Morphology Hypochromasia Poikilocytosis Anisocytosis Sodium Potassium Chloride Carbon Dioxide Anion Gap BUN Creatinine Est GFR (CKD-EPI 2020) Glucose Calcium Magnesium Troponin I 271 H* C-Reactive Protein Prostate Specific Ag 3.9 Add-On Test Request ABO/Rh A Positive Blood Type Recheck Cancelled Antibody Screen NEGATIVE Crossmatch See Detail 12/26/23 06:04 WBC 10.35 RBC 3.31 L Hgb 7.3 L Hct 26.0 L MCV 79 L MCH 22.1 L MCHC 28.1 L RDW 21.0 H Plt Count 213 MPV Immature Gran % 4.6 Neutrophils % 69.6 Lymphocytes % 12.9 Monocytes % 9.0 Eosinophils % 3.1 Basophils % 0.8 Nucleated RBC % 0.7 H Absolute Neutrophils 7.21 H Absolute Lymphocytes 1.33 Absolute Monocytes 0.93 H Absolute Eosinophils 0.32 Absolute Basophils 0.08 RBC Morphology See Below Hypochromasia 3+ Poikilocytosis 2+ Anisocytosis 2+ Sodium 143 Potassium 3.7 Chloride 105 Carbon Dioxide 27.0 Anion Gap 11.0 BUN 14 Creatinine 1.6 H Est GFR (CKD-EPI 2020) 44.10 Glucose 96 Calcium 8.8 Magnesium 1.9 Troponin I 146 H* C-Reactive Protein 3.20 H Prostate Specific Ag Add-On Test Request DONE ABO/Rh Blood Type Recheck Antibody Screen Crossmatch Time Spent with Patient Time Spent with Patient: >50 minutes Time was spent: preparing to see the patient(eg.review tests), ordering medications,tests, procedures, referring, communicating with other health care analyst (Discussion with Dr. Urrutia), indepentently interpreting results, counseling the patient (I counseled his niece Mrs. Dubois) [facility]
--- NOTE | 2023-12-26 16:06 | W.SPSTE ---
Date of service: 12/26/23 Time of Service: 10:00 Subjective Clinical (Bedside) Swallow Evaluation Speech Language Pathology Referred by: Dr Greer Referral Type: Clinical Swallow Evaluation Reason for Referral/HPI: Saleem Payan is a 78 yo male with hx longstanding cognitive impairment s/p childhood meningitis who was admitted 12/25/23 from the [facility] due to fatigue, paleness, and lack of appetite. He was found to have severe anemia- suspect diverticulitis as etiology. He is currently on a full liquid diet per surgery/MD due to the diverticulitis. EXTRUDER OPERATOR VERTICAL consult placed due to patient coughing with liquids. He is currently on moderately thick liquids per nursing. Per family- coughing is longstanding- he has demonstrated a wet cough consistently for many years. Current CXR from today has no acute findings. EXTRUDER OPERATOR VERTICAL IMPRESSIONS & RECOMMENDATIONS: Anant was seen this morning for a non-instrumental swallow evaluation which was very limited due to patient declining liquids after 1-2 sips. Re-assessment completed later in afternoon with patient tolerating thin liquids via straw without overt s/s aspiration. He does demonstrate repeat swallows (2-3) per sip, with suspected decreased hyolaryngeal movement, and intermittent cough. However, per family report of baseline status and WNL CXR this date, recommend thin liquids. Patient remains on full liquids per MD/diverticulitis. EXTRUDER OPERATOR VERTICAL will continue to follow up x1-2 to ensure diet tolerance. FURTHER EXTRUDER OPERATOR VERTICAL SERVICES: Patient to be followed while on unit. Diet Recommendations: SOLIDS- Full liquid per MD/due to diverticulitis LIQUIDS- Thin Liquids MEDICATIONS- whole in pudding SUPERVISION- Close supervision, assistance as needed with meals SUBJECTIVE: Patient received alert/awake, upright in chair tolerating nasal cannula, agreeable to evaluation Pain Reported? None Baseline Swallow Function: Gildardo reports no dysphagia, but frequent coughing at baseline PO Trials Assessed: IDDSI 0 Thin Liquids IDDSI 2 Mildly Thick Liquid Oral Mechanism Examination: Dentition is poor. Of notice there is a small dark purple lump on R side of tongue, appearing consistent with hemangioma Cranial Nerve Assessment: CN V ? Trigeminal Facial Sensation WNL Jaw Strength/ROM WNL ?WNL CN VII- Facial WNL labial ROM, strength, coordination. WNL lingual sensation WNL CN IX ? Glossopharyngeal WNL palatal elevation with phonation. No evidence of nasal emissions WNL CN X ? Vagus WNL Vocal quality and volume. Strong/sharp volitional cough WNL CX XII ? Hypoglossal WNL lingual ROM, strength, coordination WNL Oral Phase Findings: WFL for very limited trials assessed Pharyngeal Phase Findings: Delayed swallow initiation Reduced hyolaryngeal elevation/excursion Cough after swallow with thin liquids via straw ASSESSMENT: Further EXTRUDER OPERATOR VERTICAL Services indicated Recommendation at Discharge: N/A Suggested Referrals: N/A Recommended Procedures: N/A Recommendations: ? SOLIDS: Liquidized solids per MD LIQUIDS: 0-Thin Liquids MEDICATIONS: Whole with pudding RISK MANAGEMENT: HOB upright as tolerated; upright for all PO intake. Encourage physical mobility as tolerated. Oral hygiene BID/2x per day Level of Assistance/Supervision: Close with meals, assist as needed Strategies/Adaptations/Assistive Equipment: Small sips and bites when eating, Slow rate of intake Education Provided to: Nursing Topics Addressed: role of EXTRUDER OPERATOR VERTICAL/findings PLAN: Frequency: 1-2x/week for 1-2 weeks Will follow up x1-2 to ensure tolerance Goals: Oncology Social Work Goals: Patient will remain free from aspiration-related illness, malnutrition, and dehydration. Short Term Goals: Patient will tolerate Thin liquids without overt s/s aspiration across 2/2 visits. EXTRUDER OPERATOR VERTICAL CPT Code: 58158 Clinical Swallowing Evaluation TOTAL TIME: 20 Minutes [id number]
[2023-12-26] MEDS: PIPERACILLIN/TAZO 2.25 GM in Normal Saline 50 ML IVPB ×2 (16:38→23:01)
[2023-12-26] MEDS: Bisacodyl 5 MG TABEC 10 MG PO ×2 (17:47→21:03)
[2023-12-26 17:50] LABS: HCT 30.6 % (40.0-50.0); HGB 8.8 g/dL (13.5-17.5)
[2023-12-27] VITALS (78 sets, daily range): BP systolic 90–132; BP diastolic 45–70; PULSE 84–103; RESP 3–27; TEMP 36.5–37.3; O2SAT 88–99; BMI 33.8
[2023-12-27] MEDS: Lactated Ringers 1,000 ML 75 ML IV (00:44)
[2023-12-27] MEDS: PIPERACILLIN/TAZO 2.25 GM in Normal Saline 50 ML IVPB ×4 (04:33→21:03)
[2023-12-27] MEDS: Albuterol/Ipratropium 3 ML UPD VIAL UPD ×3 (05:35→18:11)
[2023-12-27 06:48] LABS: Abs Immature Grans 0.84 10^3/uL (0.0-0.06); HCT 30.3 % (40.0-50.0); HGB 8.7 g/dL (13.5-17.5); MCH 23.3 pg (27.0-33.0); MCHC 28.7 % (32.0-36.0); MCV 81 fL (80-95); Nucleated RBC 0.7 % (0.0-0.3); RBC 3.74 10^6/uL (4.36-5.78); RDW 20.8 % (11.8-14.1); RDW-SD 57.8 fL; WBC 12.15 10^3/uL (4.4-10.8)
[2023-12-27 07:17] LABS: Anion Gap 9.5 mmol/L (3-11); BUN 14 mg/dL (7-18); CO2 27.5 mmol/L (21.0-32.0); CREATININE 1.4 mg/dL (0.70-1.30); Calcium 8.8 mg/dL (8.5-10.1); Chloride 104 mmol/L (98-107); Estimated GFR 51.77 (mL/min/1.73m2); Glucose 108 mg/dL (74-106); LDH 204 U/L (85-227); Magnesium 1.8 mg/dL (1.8-2.4); Potassium 3.5 mmol/L (3.5-5.1); Sodium 141 mmol/L (136-145)
[2023-12-27 07:33] LABS: Troponin I 86 ng/L (< or =60)
[2023-12-27] MEDS: dilTIAZem 30 MG TAB PO ×3 (07:43→19:40)
[2023-12-27] MEDS: Sucralfate 1 GM TAB PO ×4 (07:43→21:03)
[2023-12-27 07:44] LABS: Absolute Eosinophil Count 0.24 10^3/uL (0.0-0.7); Absolute Lymphocyte Count 1.94 10^3/uL (1.2-3.4); Absolute Monocyte Count 0.73 10^3/uL (0.1-0.8); Absolute Neutrophil Count 8.75 10^3/uL (1.2-6.7); Diff Comment Manual Differential; Myelocytes % 4; Platelet Count 197 10^3/uL (130-400)
[2023-12-27] MEDS: Furosemide 20 MG/2 ML VIAL IVP ×3 (07:44→21:03)
[2023-12-27] MEDS: Normal Saline Flush 10 ML SYR IVP ×4 (07:44→19:41)
[2023-12-27] MEDS: Cholecalciferol (Vitamin D3) 1,000 UNIT TAB 1000 UNITS PO (07:44)
[2023-12-27] MEDS: Pantoprazole 40 MG VIAL IVP ×2 (07:44→19:40)
[2023-12-27] MEDS: Docusate Sodium 100 MG CAP PO (07:44)
[2023-12-27 07:45] LABS: Anisocytosis 3+
[2023-12-27] MEDS: Fluticasone NASAL SPRAY 16 GM BTL NS (07:45)
--- NOTE | 2023-12-27 09:16 | ANES.PREOP_ITS ---
General Info Date of Service Date Performed: 12/27/23 Height: 5 ft 2 in Weight: 84 kg Body Mass Index (BMI): 33.8 Surgical Procedure: Operation Date: 12/27/23 10:50 Proposed Procedure Side Surgeon p Colonoscopy/Gastroscopy Isreal Hernández MD Meds Allergies and Home Medications Allergies Allergy/AdvReac Type Severity Reaction Status Date / Time No Known Allergies Allergy Unverified 12/24/23 21:26 Home Medication ?Medication ?Instructions ?Recorded diltiazem HCl 60 mg 60 mg PO DAILY 12/24/23 capsule,extended release 12 hr fluticasone propionate 50 1 spray intranasal DAILY 12/24/23 mcg/actuation nasal spray,suspension ipratropium 0.5 mg-albuterol 3 mg 3 ml inhalation PRN 12/24/23 (2.5 mg base)/3 mL nebulization soln lovastatin 20 mg tablet 20 mg PO QPM 12/24/23 sucralfate 1 gram tablet 1 g PO BID 12/24/23 Current Visit Medications: Current Medications Generic Name Dose Route Start Last Admin Trade Name Freq PRN Reason Stop Dose Admin Acetaminophen 0 mg 12/25/23 00:50 12/25/23 21:30 Acetaminophen 325 Mg Tab PO 650 mg Q4H PRN PRN Administration Acetaminophen 650 mg 12/26/23 10:00 12/26/23 11:54 Acetaminophen 325 Mg Tab PO 650 mg TODAY SHABBIR Administration Albuterol Sulfate 2.5 mg 12/25/23 00:50 Albuterol 2.5 Mg/3 Ml Inh Soln Vial UPD Q2H PRN PRN Albuterol/Ipratropium 3 ml 12/25/23 06:00 12/27/23 05:35 Albuterol/Ipratropium 3 Ml Upd Vial UPD 3 ml Q6H SHABBIR Administration Bisacodyl 10 mg 12/26/23 21:00 12/26/23 21:03 Bisacodyl 5 Mg Tabec PO 10 mg DIRECTED SHABBIR Administration Cholecalciferol 1,000 units 12/25/23 10:20 12/27/23 07:44 Cholecalciferol (Vitamin D3) 1,000 Unit Tab PO 1,000 units DAILY SHABBIR Administration Diltiazem HCl 30 mg 12/25/23 08:30 12/27/23 07:43 Diltiazem 30 Mg Tab PO 30 mg TID SHABBIR Administration Diphenhydramine HCl 25 mg 12/26/23 09:15 12/26/23 11:54 Diphenhydramine 25 Mg Cap PO 25 mg TODAY SHABBIR Administration Docusate Sodium 100 mg 12/26/23 14:00 12/27/23 07:44 Docusate Sodium 100 Mg Cap PO 100 mg TID SHABBIR Administration Fluticasone Propionate 0 gm 12/25/23 08:30 12/27/23 07:45 Fluticasone Nasal [place] 16 Gm Btl NS 2 spr DAILY SHABBIR Administration Furosemide 20 mg 12/26/23 16:25 12/27/23 07:44 Furosemide 20 Mg/2 Ml Vial IVP 20 mg BID@0800,1600 SHABBIR Administration Ringer's Solution 1,000 mls @ 75 mls/hr 12/27/23 00:05 12/27/23 00:44 IV 75 mls/hr INFUSION SHABBIR Administration Piperacillin Sod/Tazobactam 50 mls @ 100 mls/hr 12/27/23 04:00 12/27/23 05:03 Sod 2.25 gm/ Sodium Chloride IVPB Infused Q6H SHABBIR Infusion IV Miscellaneous Supplies 1 each 12/25/23 01:00 Iv Access IV DIRECTED SHABBIR Lidocaine HCl 6 ml 12/25/23 02:00 12/25/23 02:34 Lidocaine 2% Jelly 6 Ml Syr TP 6 ml DIRECTED SHABBIR Administration Pantoprazole Sodium 40 mg 12/25/23 08:30 12/27/23 07:44 Pantoprazole 40 Mg Vial IVP 40 mg BID SHABBIR Administration Polyethylene Glycol 17 gm 12/25/23 00:50 Polyethylene Glycol 3350 17 Gm Packet PO DAILY PRN PRN Constipation Sodium Chloride 0 ml 12/24/23 21:36 12/26/23 16:46 Normal Saline Flush 10 Ml Syr IVP 10 ml PRN PRN Administration Sodium Chloride 0 ml 12/25/23 08:30 12/27/23 07:44 Normal Saline Flush 10 Ml Syr IVP 20 ml BID SHABBIR Administration Sodium Chloride 0 ml 12/24/23 21:36 12/25/23 02:34 Normal Saline 10 Ml Vial IJ 10 ml DIRECTED PRN Administration Sodium Cl/Sod Bicarb/Potass Cl/PEG 4,000 ml 12/26/23 18:00 12/26/23 17:46 Colyte 4000 Ml Btl PO 4,000 ml DIRECTED SHABBIR Administration Sucralfate 1 gm 12/26/23 11:30 12/27/23 07:43 Sucralfate 1 Gm Tab PO 1 gm AC & HS SHABBIR Administration PFSH Active Problems Active Problems: Problem Status Onset Code DVT prophylaxis Acute Z29.9 Tricuspid regurgitation Acute I07.1 Mitral regurgitation Chronic I34.0 Pulmonary hypertension Acute I27.20 Heart failure with mid-range ejection fraction (HFmEF) Acute I50.22 Acute hypoxemic respiratory failure Acute J96.01 Diverticula of colon Acute K57.30 Elevated troponin I level Acute R79.89 Mentally challenged Chronic F79 Hyperlipidemia Chronic E78.5 Vitamin D deficiency Chronic E55.9 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 Acute blood loss anemia Acute D62 Iron deficiency anemia due to chronic blood loss Chronic D50.0 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, N13.8 Diverticulitis large intestine Acute K57.32 HTN (hypertension) Chronic I10 Pulmonary edema Acute J81.1 Colitis Acute K52.9 CHF (congestive heart failure) Chronic I50.9 Anemia Chronic D64.9 Nail dystrophy Acute L60.3 Tobacco Smoking/Tobacco Use Status: Former Tobacco Use Alcohol Alcohol Intake: never Vital Signs and Lab Results Vital Signs Most Recent Vital Signs in EMR: Most Recent Vital Signs Temp Pulse Resp BP Pulse Ox 37.2 C 102 H 18 123/69 88 L 12/27/23 07:26 12/27/23 07:26 12/27/23 07:26 12/27/23 07:26 12/27/23 08:50 Lab Results 12/27/23 06:08 12/27/23 06:08 Blood Type / Crossmatch: 2 Antibody Screen NEGATIVE 12/24/23 Crossmatch See Detail 12/24/23 Complete Blood Count: 2 White Blood Count 12.15 10^3/uL (4.4-10.8) H 12/27/23 06:08 Red Blood Count 3.74 10^6/uL (4.36-5.78) L 12/27/23 06:08 Hemoglobin 8.7 g/dL (13.5-17.5) L 12/27/23 06:08 Hematocrit 30.3 % (40.0-50.0) L 12/27/23 06:08 Platelet Count 197 10^3/uL (130-400) 12/27/23 06:08 Venous Blood Lactate 2.3 mmol/L (0.9-1.7) H* 12/24/23 21:24 Complete Metabolic Panel: 2 Sodium 141 mmol/L (136-145) 12/27/23 06:08 Potassium 3.5 mmol/L (3.5-5.1) 12/27/23 06:08 Chloride 104 mmol/L (98-107) 12/27/23 06:08 Carbon Dioxide 27.5 mmol/L (21.0-32.0) 12/27/23 06:08 BUN 14 mg/dL (7-18) 12/27/23 06:08 Creatinine 1.4 mg/dL (0.70-1.30) H 12/27/23 06:08 Est GFR (CKD-EPI 2020) 51.77 (mL/min/1.73m2) 12/27/23 06:08 Magnesium 1.8 mg/dL (1.8-2.4) 12/27/23 06:08 Calcium 8.8 mg/dL (8.5-10.1) 12/27/23 06:08 Albumin 3.6 g/dL (3.4-5.0) 12/25/23 05:58 Glucose 108 mg/dL (74-106) H 12/27/23 06:08 Hemoglobin A1c 5.2 % (<5.7) 12/24/23 14:00 C-Reactive Protein 3.20 mg/dL (<or=0.5) H 12/26/23 06:04 Liver Function Panel: 2 Alanine Aminotransferase (ALT/SGPT) 34 U/L (16-63) 12/25/23 05: 58 Aspartate Amino Transf (AST/SGOT) 24 U/L (15-37) 12/25/23 05:58 Coagulation Panel: 2 INR International Normalized Ratio 1.1 (0.9-1.1) 12/25/23 02:2 0 Prothrombin Time 11.0 sec (9.1-11.1) 12/25/23 02:20 Cardiac Panel: 2 Troponin I 86 ng/L (< or =60) H* 12/27/23 NT-Pro-B Natriuret Pep 1667 pg/mL (<300) H 12/25/23 Arterial Blood Gas: 2 No Data to Display Venous Blood Gas: 2 No Data to Display Pancreas Panel: 2 No Data to Display Thyroid Panel: 2 Thyroid Stimulating Hormone (TSH) 1.63 uIU/mL (0.36-3.74) 12/23 14:00 Infectious Disease: 2 No Data to Display Blood Cultures: 2 No Data to Display Toxicology Panel: 2 No Data to Display Imaging and Studies Imaging and Studies Study information below may be from another EMR and interpreted by another provider. Please see original notes in EMR for more complete details. EKG Summary: 12/27: sinus. minimal ST depression. Echocardiogram Summary: 12/27: LVEF 51%, PASP 54-66 mmhg. moderate TR/MR. Anesthesia Assessment and Plan Anesthesia History Personal History: No History of Anesthesia Complications Family History: No Family History of Anesthesia Complications Exercise Tolerance Exercise Tolerance: Metabolic Equivalents<4 Cardiac & Pulmonary Exam Cardiac Exam: Normal S1/S2 Heart Sounds Pulmonary Exam: Rales Present Implantable Cardiac Device Does patient have a Pacemaker or an ICD?: No Airway Exam Known Difficult Airway: No Mallampati Class: 4 Mouth Opening: Narrow (< 3cm) Thyromental Distance: Less than 3 cm Neck Range of Motion: Limited ROM Neck Circumference: Normal Teeth Condition: Generalized Poor Dentition ASA Classification ASA Score: ASA 4 Emergency Case?: No NPO Status NPO Status: NPO Clears >2 hours, Solids >8 hours Anesthesia Plan Resuscitation Status: Full Code Anesthesia Technique: MAC Anesthesia Airway Planned: Natural Airway Monitors Used: Standard Monitors Preoperative Comments:: 78 yo male with low h/h for EGD/colo. Admitted 12/24 with anemia and hgb 5. He has received 3 units of PRBCs. His presenting CXR showed mild CHF and received furosemide. abd CT with diverticulitis and started on Zosyn. Trop was elevated on admission and believed to be due to demand ischemia 2/2 his hgb, and it is tending down. He states that he feels weak, and Shara (Guardian) confirms this. Sig PMHx: HTN, pHTN, CHF, COPD, peripheral edema, mentally challenged (spinal meningitis as a child. lives at the [facility] since March). CXR: initial mild CHF, current with no acute findings. EKG: sinus. minimal ST depression. ECHO: LVEF 51%, PASP 54-66 mmhg. moderate TR/MR. Guardian has been present with him much of the morning, states that he finished his prep at ~1000. Consent obtained via guardian (Shara) for sedation up to GA as needed/tolerated. Discussed DNR/DNI status - will be suspended for the procedure with the understanding that resuscitative measures would be instituted and discussed in the room as to continuation/cessation of efforts based on the clinical picture.
--- NOTE | 2023-12-27 12:33 | W.PM.PROGNOT ---
Date of Service Date of service: 12/27/23 Time of Service: 12:33 Assessment and Plan Assessment and plan (1) Diverticulitis large intestine: Start date: 12/25/23 Status: Acute Assessment and plan: IV Zosyn, blood cultures no growth to date continue antibiotics; proceed w/ endoscopy today Qualifiers: Diverticulitis bleeding: with bleeding Diverticulitis complication: without perforation or abscess Qualified Code(s): K57.33 - Diverticulitis of large intestine without perforation or abscess with bleeding (2) Acute blood loss anemia: Start date: 12/25/23 Status: Acute Assessment and plan: no further evidence for blood loss, I suspect this has been chronic blood loss not acute as his stools were heme negative on admission. await results of todays endoscopy (3) Iron deficiency anemia due to chronic blood loss: Status: Chronic Assessment and plan: patient got another dose of Venofer today but does not need transfusion today. Hb stable at 8.7 gm (4) Heart failure with mid-range ejection fraction (HFmEF): Status: Acute Assessment and plan: Echocardiogram shows mild systolic impairment of his LV with an LVEF of 51% and global dysfunction no regional wall motion abnormalities however he does have pulmonary hypertension with an RVSP of 51 mm however the RV is not dilated nor there are RV systolic dysfunction. However he does have mild to moderate mitral regurgitation and mild to moderate tricuspid regurgitation. Patient had a mild troponin leak during this hospitalization probably related to the severe anemia he presented with. His EKG did not show any acute ischemic changes. However I am recommending to his niece that he have an outpatient stress MPI to rule out underlying ischemic heart disease. I think the troponin leak was a demand ischemia event. Patient needs to be on GDT, including Entresto and spironolactone. will give extra dose of lasix today (5) Elevated troponin I level: Status: Acute Assessment and plan: Patient presented with a normal troponin less than 50 but this peaked at 390 ng/L and has steadily declined since, now at 86 this morning. (6) Pulmonary hypertension: Status: Acute Assessment and plan: RVSP of 51 mm. He has mild to moderate tricuspid regurgitation. Based on his history of severe snoring for many years and his obesity and increased neck circumference I suspect he has undiagnosed obstructive sleep apnea and he should pursue PSG upon discharge. continue diuresis but change to po lasix, monitor labs (7) Tricuspid regurgitation: Status: Acute Qualifiers: Cardiac valve disease etiology: nonrheumatic Qualified Code(s): I36.1 - Nonrheumatic tricuspid (valve) insufficiency (8) Mitral regurgitation: Status: Chronic Qualifiers: Cardiac valve disease etiology: nonrheumatic Qualified Code(s): I34.0 - Nonrheumatic mitral (valve) insufficiency (9) HTN (hypertension): Status: Chronic Assessment and plan: Continue Cardizem and split dosing. 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 Check PSA. Alkaline phosphatase was not elevated. (11) COPD (chronic obstructive pulmonary disease) with emphysema: Status: Chronic Assessment and plan: change nebulizers to q4h prn; begin Spiriva Qualifiers: Emphysema type: other Qualified Code(s): J43.8 - Other emphysema (12) Hyperlipidemia: Status: Chronic Assessment and plan: Patient not on statin by review of med list that this will be held for now. Qualifiers: Hyperlipidemia type: mixed hyperlipidemia Qualified Code(s): E78.2 - Mixed hyperlipidemia (13) Mentally challenged: Status: Chronic Assessment and plan: Decreased mental capacity since child status post meningitis requiring supervision by family at first with his mother and then with his brother now placed at the [facility] with his nieces as co-guardian's since March 2023. (14) DVT prophylaxis: Status: Acute Assessment and plan: Patient is not a candidate for chemoprophylaxis therefore he is receiving SCD compression Subjective Subjective Interval history since last seen: Anant was seen prior to his endoscopy and was discussed w/ his nieces. He seems to be in good spirits, he denies any nausea or vomiting or abdominal pain Exam Narrative Exam Narrative: Anant was examined after he came back from his endooscopy. He remains on 2 lpm oxygen, he does not feel dyspneic and does not appear dyspnea However, lungs w/ bilateral rales, no wheezing Heart: RRR King draining clear yellow urine Abdomen: soft, nontender, normal bowel sounds Objective Last Vital Signs Temp 36.8 C 12/27/23 11:13 Pulse 90 12/27/23 11:13 Resp 18 12/27/23 11:13 BP 117/64 12/27/23 11:13 Pulse Ox 92 12/27/23 11:13 Laboratory Results - last 24 hr 12/24/23 12/26/23 12/27/23 12:02 17:30 06:08 WBC 12.15 H RBC 3.74 L Hgb 8.8 L 8.7 L Hct 30.6 L 30.3 L MCV 81 MCH 23.3 L MCHC 28.7 L RDW 20.8 H Plt Count 197 MPV Immature Gran % 0.0 Neutrophils % 72.0 Lymphocytes % 16.0 Monocytes % 6.0 Eosinophils % 2.0 Basophils % 0.0 Myelocytes % 4 Nucleated RBC % 0.7 H Absolute Neutrophils 8.75 H Absolute Lymphocytes 1.94 Absolute Monocytes 0.73 Absolute Eosinophils 0.24 Absolute Basophils 0.00 RBC Morphology See Below Anisocytosis 3+ Sodium 141 Potassium Chloride Carbon Dioxide Anion Gap BUN Creatinine Est GFR (CKD-EPI 2020) Glucose Calcium Magnesium Lactate Dehydrogenase Troponin I ABO/Rh A Positive Blood Type Recheck Cancelled Antibody Screen NEGATIVE Crossmatch See Detail 12/27/23 12/27/23 12/27/23 06:08 06:08 06:08 WBC RBC Hgb Hct MCV MCH MCHC RDW Plt Count MPV Immature Gran % Neutrophils % Lymphocytes % Monocytes % Eosinophils % Basophils % Myelocytes % Nucleated RBC % Absolute Neutrophils Absolute Lymphocytes Absolute Monocytes Absolute Eosinophils Absolute Basophils RBC Morphology Anisocytosis Sodium Cancelled Potassium 3.5 Cancelled Chloride 104 Cancelled Carbon Dioxide 27.5 Anion Gap BUN Creatinine Est GFR (CKD-EPI 2020) Glucose Calcium Magnesium Lactate Dehydrogenase Troponin I ABO/Rh Blood Type Recheck Antibody Screen Crossmatch 12/27/23 12/27/23 12/27/23 06:08 06:08 06:08 WBC RBC Hgb Hct MCV MCH MCHC RDW Plt Count MPV Immature Gran % Neutrophils % Lymphocytes % Monocytes % Eosinophils % Basophils % Myelocytes % Nucleated RBC % Absolute Neutrophils Absolute Lymphocytes Absolute Monocytes Absolute Eosinophils Absolute Basophils RBC Morphology Anisocytosis Sodium Potassium Chloride Carbon Dioxide Cancelled Anion Gap 9.5 Cancelled BUN 14 Cancelled Creatinine 1.4 H Est GFR (CKD-EPI 2020) Glucose Calcium Magnesium Lactate Dehydrogenase Troponin I ABO/Rh Blood Type Recheck Antibody Screen Crossmatch 12/27/23 12/27/23 12/27/23 06:08 06:08 06:08 WBC RBC Hgb Hct MCV MCH MCHC RDW Plt Count MPV Immature Gran % Neutrophils % Lymphocytes % Monocytes % Eosinophils % Basophils % Myelocytes % Nucleated RBC % Absolute Neutrophils Absolute Lymphocytes Absolute Monocytes Absolute Eosinophils Absolute Basophils RBC Morphology Anisocytosis Sodium Potassium Chloride Carbon Dioxide Anion Gap BUN Creatinine Cancelled Est GFR (CKD-EPI 2020) 51.77 Cancelled Glucose 108 H Cancelled Calcium 8.8 Magnesium Lactate Dehydrogenase Troponin I ABO/Rh Blood Type Recheck Antibody Screen Crossmatch 12/27/23 12/27/23 06:08 06:08 WBC RBC Hgb Hct MCV MCH MCHC RDW Plt Count MPV Immature Gran % Neutrophils % Lymphocytes % Monocytes % Eosinophils % Basophils % Myelocytes % Nucleated RBC % Absolute Neutrophils Absolute Lymphocytes Absolute Monocytes Absolute Eosinophils Absolute Basophils RBC Morphology Anisocytosis Sodium Potassium Chloride Carbon Dioxide Anion Gap BUN Creatinine Est GFR (CKD-EPI 2020) Glucose Calcium Cancelled Magnesium 1.8 Cancelled Lactate Dehydrogenase 204 Troponin I 86 H* ABO/Rh Blood Type Recheck Antibody Screen Crossmatch Time Spent with Patient Time Spent with Patient: 25-34 minutes Time was spent: preparing to see the patient(eg.review tests), referring, communicating with other health director of career resources, indepentently interpreting results and counseling the patient (discussed w/ his nieces)
[2023-12-27] MEDS: IRON SUCROSE COMPLEX 400 MG in Normal Saline 250 ML 100 MG IVPB (12:39)
--- NOTE | 2023-12-27 12:45 | PT.INTREAT ---
PT Notes Visit Reasons: Acute blood loss anemia, CHF Inpatient Physical Therapy Treatment Note [facility] Date: 12/27/2023 PRECAUTIONS:IV RUmady Saldivar Telemetry SUBJECTIVE: I need to go to the bathroom. OBJECTIVE: supine in bed with oxygen in place and IV infusing. earl to bedside drainage.Pt in process of completing colonoscopy prep. PAIN:denies VITALS: ? Pre-Treatment: 2L/min 96 % ? Post-Treatment: 2L/min 94% Therapeutic Activities (25180y0): Direct one-on-one instruction in dynamic activities to improve functional performance. ? BED MOBILITY/TRANSFERS? Rolling L/R: SBA Supine-sit:CGA cues to initiate? Sit-supine: CGA and increase time ? Sit-stand: CGA and cues to push up from surface ? Stand-sit: CGA and tactile and verbal cues for hand placement? Bed-Chair: min A with FWW for safe approach to surface d/t impulsivity ? Chair-bed: min A with FWW for safe approach to surface, d/t impulsivity Provided skilled cues and instruction on performance and technique throughout. ? GAIT? Assistive Device: FWW? Weight bearing: full Assist: min/mod A to manage FWW reduce speed and sustain upright ? Distance:? 30feet x2 ? Deviation: reciprocal pattern with intermittent crossing of feet, increase forward weight shift, ? Therapeutic Exercises ([id number]: Direct one-on-one instruction in therapeutic exercises to develop strength, endurance, range of motion and flexibility. ? Exercises ? Seated LAQ, marching, Ankle pumps BLe 10 reps, Stand marching, hip abduction with BUE support on RW 2 sets 5 reps with rest between each exercise ? Provided skilled instruction in proper exercise performance Provided skilled manual cues to facilitate proper muscle recruitment and/or form: [] ASSESSMENT:? Pt limited this session by frequent need for commode d/t colonoscopy prep . Pt remained in room for ambulation short distances requiring mod A to reduce speed and to keep RW close to body . He does not use a RW at [facility] and will be progressed as able without device as stability improves. PLAN: continue strengthening, transfer training with LRD , balance and gait training with LRD TREATMENT CODE/TIME: 06010, [id number] DISCHARGE RECOMMENDATION: Return to [facility] with continued PT when medically appropriate
[2023-12-27] MEDS: Lactated Ringers 1,000 ML 30 ML IV (13:23)
--- NOTE | 2023-12-27 14:01 | BOWEL_PTH ---
PATIENT: Saleem Payan LOC: U#:[id number] AGE/SX: 78/M ROOM: 227 RE12/25/[address]: Collin Barth : 1945 BED: A DIS: 12/30/2023 SPEC #: [id number] RECD: 12/27/23 17:26 STATUS: RENETTA REQ #: [id number] BEE: 12/27/23 14:[address]: Isreal Hernández DEPT: Surgical Specimen RECD BY: Adenike Lubin ENTERED: 12/27/23 17:27 SP TYPE: Bowel OTHR DR: Radha Zayas, DENTISTRY PROFESSOR Ashely Nesbitt,Collin Darby, Ashley Fuentes,Rhonda Dickinson,Saloni Dinh-Yashira Rooney, KURTIS [facility] Hank Wylie Tissues: 1 - BIOPSY BOWEL Procedures: GROSS AND MICRO LEVEL 4 Comments: [id number]
--- NOTE | 2023-12-27 14:25 | W.PM.PROGNOT ---
Date of Service Date of service: 12/27/23 Time of Service: 14:25 Assessment and Plan Assessment and plan (1) Anemia: Status: Chronic Assessment and plan: Will proceed with diagnostic bidirectional endoscopy today. Subjective Subjective Interval history since last seen: It seems like Saleem was able to tolerate most of the bowel prep overnight without any significant nausea or vomiting. Stools are liquid this morning, there is no sign of any active bleeding. Exam GI Other: Abdomen is soft, and not distended. He is not tender. Objective Last Vital Signs Temp 97.9 F 12/27/23 14:22 Pulse 87 12/27/23 14:20 Resp 20 12/27/23 14:20 BP 125/65 12/27/23 14:20 Pulse Ox 91 L 12/27/23 14:20 Laboratory Results - last 24 hr 12/24/23 12/26/23 12/27/23 12:02 17:30 06:08 WBC 12.15 H RBC 3.74 L Hgb 8.8 L 8.7 L Hct 30.6 L 30.3 L MCV 81 MCH 23.3 L MCHC 28.7 L RDW 20.8 H Plt Count 197 MPV Immature Gran % 0.0 Neutrophils % 72.0 Lymphocytes % 16.0 Monocytes % 6.0 Eosinophils % 2.0 Basophils % 0.0 Myelocytes % 4 Nucleated RBC % 0.7 H Absolute Neutrophils 8.75 H Absolute Lymphocytes 1.94 Absolute Monocytes 0.73 Absolute Eosinophils 0.24 Absolute Basophils 0.00 RBC Morphology See Below Anisocytosis 3+ Sodium 141 Potassium Chloride Carbon Dioxide Anion Gap BUN Creatinine Est GFR (CKD-EPI 2020) Glucose Calcium Magnesium Lactate Dehydrogenase Troponin I Crossmatch See Detail 12/27/23 12/27/23 12/27/23 06:08 06:08 06:08 WBC RBC Hgb Hct MCV MCH MCHC RDW Plt Count MPV Immature Gran % Neutrophils % Lymphocytes % Monocytes % Eosinophils % Basophils % Myelocytes % Nucleated RBC % Absolute Neutrophils Absolute Lymphocytes Absolute Monocytes Absolute Eosinophils Absolute Basophils RBC Morphology Anisocytosis Sodium Cancelled Potassium 3.5 Cancelled Chloride 104 Cancelled Carbon Dioxide 27.5 Anion Gap BUN Creatinine Est GFR (CKD-EPI 2020) Glucose Calcium Magnesium Lactate Dehydrogenase Troponin I Crossmatch 12/27/23 12/27/23 12/27/23 06:08 06:08 06:08 WBC RBC Hgb Hct MCV MCH MCHC RDW Plt Count MPV Immature Gran % Neutrophils % Lymphocytes % Monocytes % Eosinophils % Basophils % Myelocytes % Nucleated RBC % Absolute Neutrophils Absolute Lymphocytes Absolute Monocytes Absolute Eosinophils Absolute Basophils RBC Morphology Anisocytosis Sodium Potassium Chloride Carbon Dioxide Cancelled Anion Gap 9.5 Cancelled BUN 14 Cancelled Creatinine 1.4 H Est GFR (CKD-EPI 2020) Glucose Calcium Magnesium Lactate Dehydrogenase Troponin I Crossmatch 12/27/23 12/27/23 12/27/23 06:08 06:08 06:08 WBC RBC Hgb Hct MCV MCH MCHC RDW Plt Count MPV Immature Gran % Neutrophils % Lymphocytes % Monocytes % Eosinophils % Basophils % Myelocytes % Nucleated RBC % Absolute Neutrophils Absolute Lymphocytes Absolute Monocytes Absolute Eosinophils Absolute Basophils RBC Morphology Anisocytosis Sodium Potassium Chloride Carbon Dioxide Anion Gap BUN Creatinine Cancelled Est GFR (CKD-EPI 2020) 51.77 Cancelled Glucose 108 H Cancelled Calcium 8.8 Magnesium Lactate Dehydrogenase Troponin I Crossmatch 12/27/23 12/27/23 06:08 06:08 WBC RBC Hgb Hct MCV MCH MCHC RDW Plt Count MPV Immature Gran % Neutrophils % Lymphocytes % Monocytes % Eosinophils % Basophils % Myelocytes % Nucleated RBC % Absolute Neutrophils Absolute Lymphocytes Absolute Monocytes Absolute Eosinophils Absolute Basophils RBC Morphology Anisocytosis Sodium Potassium Chloride Carbon Dioxide Anion Gap BUN Creatinine Est GFR (CKD-EPI 2020) Glucose Calcium Cancelled Magnesium 1.8 Cancelled Lactate Dehydrogenase 204 Troponin I 86 H* Crossmatch Time Spent with Patient Time Spent with Patient: <25 minutes Time was spent: preparing to see the patient(eg.review tests), indepentently interpreting results and care coordination
--- NOTE | 2023-12-27 14:28 | W.PM.ENDDOP ---
Date of service: 12/27/23 Time of Service: 14:28 Endoscopy Report DATE OF PROCEDURE: 12/27/23 PRE-OP DIAGNOSIS: Anemia POST-OP DIAGNOSIS: other (Hiatal hernia, diverticulosis, rectal polyp, colonic telangiectasia) PROCEDURE: Diagnostic EGD, diagnostic colonoscopy with cauterization of colonic telangiectasia and polypectomy SURGEON: Isreal Hernández ANESTHESIA TYPE: General:No Airway ESTIMATED BLOOD LOSS: 5 PATHOLOGY: other (Rectal polyp) COMPLICATIONS: None DISPOSITION: PACU INDICATIONS: Saleem is a 78-year-old male who comes to the hospital with anemia. He responded favorably to transfusion of packed red blood cells, in an effort for diagnostics, needs bidirectional endoscopy PREP: Evna PROCEDURE START TIME: 13:41 PROCEDURE END TIME: 14:02 COLONOSCOPY RETRACTION TIME: 12 FINDINGS: Grade 3 hiatal hernia with mild gastritis, rectal polyp, colon telangiectasia at 45 cm PROCEDURE DESCRIPTION: After the initiation of anesthesia, and with the assistance of a bite block, I advanced a standard gastroscope through the mouth past the hypopharynx and into the esophagus.? Under the direct vision of the scope, I advanced down the esophagus into the stomach.? Once I entered the stomach, I performed a brief inspection, followed by retroflexion towards the gastric cardia.? There is a grade 3 hiatal hernia, with just a little bit of inflammation along the gastric edge. There is no visible vessels, or any stigmata of recent bleeding. After that, I gently advanced the scope around the incisura angularis and examined the pylorus.? This also appeared normal.? Next, I advanced the scope through the pylorus into the duodenum.? The mucosa was pink and healthy appearing.? There were no abnormalities.? I was able to visualize bile draining into the duodenum through the ampulla Vater. ?There were no signs of blood anywhere within the duodenum. I brought the camera back up into the stomach and examined it once again. No other pathology was appreciated. I then emptied the stomach, and brought the camera out along the length of the esophagus. We then moved Saleem into the left lateral decubitus position. Great care was taken to pad and support him appropriately. I began by performing an external anorectal exam.? Perineum and skin were normal, as was the anal verge.? There was no evidence of external hemorrhoids.? Next, I performed a digital rectal exam.? I did not appreciate any abnormal findings.? Next, I advanced a colonoscope into the rectal vault.? This was normal.? Using insufflation, I then advanced the colonoscope beyond the rectal folds and into the sigmoid colon before advancing towards the cecum.? There is extensive sigmoid diverticulosis. Around 45 cm from the anus was a small telangiectasia. It did not appear to have any signs of recent bleeding. I did cauterize this today. I continued advancing the scope.? The scope was noted to be in the cecum by identification of the ileocecal valve and appendiceal orifice.? I then began withdrawing the colonoscope using repeated irrigation as necessary for full evaluation of the colonic mucosa. ?Once the scope was withdrawn to the level of the rectum, great care was taken to examine portions of the rectal folds. There was a 0.25 cm rectal polyp in the lower portion of the vault. This was removed with cold forcep polypectomy. In an effort to minimize any other bleeding complications, the site was cauterized as well. Finally, the scope was withdrawn and the patient was brought to recovery unit as the anesthetic wore off.
--- NOTE | 2023-12-27 14:30 | W.ANESPOSTOP ---
Postoperative Evaluation Date, Time and Location Date Performed: 12/27/23 Time Performed: 14:30 Patient Location: PACU Vital Signs Most Recent Imported Vital Signs: Most Recent Vital Signs Temp Pulse Resp BP Pulse Ox 36.7 C 87 22 118/70 91 L 12/27/23 14:25 12/27/23 14:25 12/27/23 14:26 12/27/23 14:12/27/23 14:26 Pain Score Most Recent Pain Score: Most Recent Pain Score Pain Level 0 12/27/23 14:22 Assessment Mental Status: Awake (Alert & Oriented to Patient Baseline) Airway and Respiratory Function: Patent airway with normal (patient baseline) respiratory exam Cardiovascular Function: Hemodynamically Stable Hydration Status: Adequately Hydrated Nausea & Vomiting: No Nausea or Vomiting Pain: Pt. Denies Any Pain Peripheral Nerve Block: Patient did not receive a nerve block
--- NOTE | 2023-12-27 14:39 | W.ANESVAS ---
Midline Placement Date Performed: 12/27/23 Procedure Time: 13:23 Requesting Provider: Carlito Reyes Procedure Location: Operating Room Sedation Given (Indicate Dose Given): No Sedation given Patient Mental Status: Awake Sterility: Hand Hygiene, Surgical Cap, Surgical Mask, Sterile Gloves, Sterile Drape/Sheet and Chlorhexidine Laterality: Right Insertion Site: Brachial Midline Device: PowerGlide Pro 18G Catheter Length: 10 cm Midline Procedure Procedure: 1% Lidocaine to skin and subcutaneous tissue with 25g needle and Catheter placed without resistance Dressing: Tegaderm Applied and Statlock Applied Blood Return: Present Flushes: Easily Ultrasound: Sterile probe cover and gel used Ultrasound Image Saved?: Yes Number of Attempts (See previous attempts in note section): 1 Procedure Tolerated: No Complications Procedure Outcome: Successful Performed By: Carlito Reyes
--- NOTE | 2023-12-27 15:18 | PT.INNT ---
PT Notes Visit Reasons: Acute blood loss anemia, CHF held pm session due to having a procedure. Will resume tomorrow am.
--- NOTE | 2023-12-27 15:46 | CMPROGNOTE_ITS ---
Date of service: 12/27/23 Time of Service: 15:46 Care Management Progress Note Progress Note Text Progress Note Text: Anant was lying in bed when CM met with him. He had just returned form his endoscopy procedure and was still a bit sleepy. Anant stated that he is feeling well and that the doctor told him his procedure went well. He informed CM that he did not believe any active bleeding was found. Anant's vital signs are stable and his H&H has remained at 8.7. Discharge Potential Discharge Needs: PCP F/U Appt Anticipated Barriers to Discharge: None Identified Patient/Family Education Needs: Review discharge instructions, discuss Ask Me Three Transportation: Private vehicle Plan: Anticipate Saleem will return to the [facility] when medically stable. He will follow up with the facility providers and plan of care and transport via EMS coordinated by CM. CM will follow and continue to assess for discharge needs. SDOH(Care Management) Screening Will the Patient Participate in the Screening?: Unable to obtain Problems where you live: no known problems Social Determinants of Health Comments(SDOH Details): pt incompetent to answer questions. lives at the [facility]
--- NOTE | 2023-12-27 16:45 | SPP_ITS ---
Date of service: 12/27/23 Time of Service: 16:25 Subjective Patient underwent colonoscopy procedure and was NPO most of today. TRAFFIC SIGNAL SUPERVISOR MAINTENANCE visiting patient at end of day once cleared for normal diet. Patient is agreeable and cooperative but minimally responsive throughout. Objective/Assessment/Plan Objective Treatment Techniques & Outcomes: OPERATIONS INSPECTOR GOALS: Patient will remain free from aspiration-related illness, malnutrition, and dehydration. SHORT TERM GOALS: Patient will tolerate Thin liquids without overt s/s aspiration across 2/2 visits. IN PROGRESS: Trials Assessed: IDDSI 0 Thin Liquids IDDSI 4 Puree Solid IDDSI 7 Regular Solid Oral Phase Findings: Difficulty chewing Residue (due to dry mouth) Pharyngeal Phase Findings: Delayed swallow initiation Sluggish but adequate hyolaryngeal elevation/excursion Cough after swallow (c large sips) Assessment Patient appears with difficulty with mastication in setting of poor dentition. Ordered soft/bite size diet. Tolerance of thin liquids is stable, will continue to benefit from cues for small bite/sip size and slow pace. Reviewed Dr. Hernández's notes from earlier today (visualized esophagus/stomach and noting hiatal hernia). Patient is also at risk of reflux aspiration. Updated aspiration care orders for positioning and pacing considerations. Plan Plan: Frequency: 1-2x/week for 1-2 weeks Will follow up x1-2 to ensure tolerance Recommendations Recommendations: Recommendations: ? SOLIDS: Soft/Bite Size LIQUIDS: 0-Thin Liquids MEDICATIONS: Whole with pudding RISK MANAGEMENT: HOB upright as tolerated; upright for all PO intake. Encourage physical mobility as tolerated. Remain upright at least 30 min after meals Oral hygiene BID/2x per day Level of Assistance/Supervision: Close with meals, assist as needed Strategies/Adaptations/Assistive Equipment: Small sips and bites when eating, Slow rate of intake Education Provided to: Nursing Total Time Spent: 20 min (4:15-4:25)
[2023-12-27] MEDS: Spironolactone 25 MG TAB PO (21:03)
[2023-12-28] VITALS (7 sets, daily range): BP systolic 103–125; BP diastolic 54–60; PULSE 90–99; RESP 15–20; TEMP 36.7–37.1; O2SAT 92–95
[2023-12-28] MEDS: PIPERACILLIN/TAZO 2.25 GM in Normal Saline 50 ML IVPB ×4 (04:05→21:12)
[2023-12-28 06:28] LABS: HCT 30.2 % (40.0-50.0); HGB 8.6 g/dL (13.5-17.5); MCH 23.9 pg (27.0-33.0); MCHC 28.5 % (32.0-36.0); MCV 84 fL (80-95); RDW 22.9 % (11.8-14.1); RDW-SD 62.5 fL; WBC 11.29 10^3/uL (4.4-10.8)
[2023-12-28 06:46] LABS: Anion Gap 8.6 mmol/L (3-11); BUN 10 mg/dL (7-18); CO2 31.4 mmol/L (21.0-32.0); CREATININE 1.5 mg/dL (0.70-1.30); Calcium 8.7 mg/dL (8.5-10.1); Chloride 103 mmol/L (98-107); Estimated GFR 47.65 (mL/min/1.73m2); Glucose 95 mg/dL (74-106); Potassium 3.6 mmol/L (3.5-5.1); Sodium 143 mmol/L (136-145)
[2023-12-28 06:51] LABS: Calculated LDL 52 mg/dL (<100); Cholesterol 115 mg/dL (<200); HDL Cholesterol 33 mg/dL (40-60); Triglyceride 152 mg/dL (<150)
[2023-12-28 06:53] LABS: Absolute Eosinophil Count 0.56 10^3/uL (0.0-0.7); Absolute Lymphocyte Count 1.35 10^3/uL (1.2-3.4); Absolute Monocyte Count 0.79 10^3/uL (0.1-0.8); Absolute Neutrophil Count 8.47 10^3/uL (1.2-6.7); Bands % 1 %; Diff Comment Manual Differential; Metamyelocytes % 1; Platelet Count 199 10^3/uL (130-400)
[2023-12-28 06:54] LABS: Anisocytosis 2+; Hypochromasia 1+; Microcytosis 1+; Spherocytes 1+
[2023-12-28] MEDS: Cholecalciferol (Vitamin D3) 1,000 UNIT TAB 1000 UNITS PO (08:25)
[2023-12-28] MEDS: Docusate Sodium 100 MG CAP PO ×2 (08:25→21:11)
[2023-12-28] MEDS: dilTIAZem 30 MG TAB PO ×2 (08:25→13:34)
[2023-12-28] MEDS: Furosemide 20 MG TAB PO ×2 (08:25→15:43)
[2023-12-28] MEDS: Spironolactone 25 MG TAB PO (08:25)
[2023-12-28] MEDS: Sacubitril/Valsartan 24 mg/26 mg TAB 1 EACH PO ×2 (08:25→21:12)
[2023-12-28] MEDS: Fluticasone NASAL SPRAY 16 GM BTL NS (08:26)
[2023-12-28] MEDS: Sucralfate 1 GM TAB PO ×3 (08:26→16:20)
[2023-12-28] MEDS: Pantoprazole 40 MG VIAL IVP ×2 (08:26→21:12)
[2023-12-28] MEDS: Normal Saline Flush 10 ML SYR IVP ×2 (08:26→21:11)
[2023-12-28] MEDS: Tiotropium Bromide-Respimat 10 PUFF INH 2 PUFF IH (08:32)
--- NOTE | 2023-12-28 12:22 | PT.INTREAT ---
PT Notes Visit Reasons: Acute blood loss anemia, CHF Date: 12/28/2023 PRECAUTIONS:mady CAMPOS Telemetry SUBJECTIVE: Pt in bed when approached for therapy this morning, pt agreed to participating with therapy. OBJECTIVE: NC with 2L [address] aerl to bedside drainage. PAIN: none VITALS: ? Pre-Treatment: 2L/min 95 % ? Post-Treatment: 2L/min 95% Therapeutic Activities 85879 15mins: Direct one-on-one instruction in dynamic activities to improve functional performance. ? BED MOBILITY/TRANSFERS? Rolling L/R: Supervision Supine-sit: Supervision ? Sit-supine: Supervision ? Sit-stand: SBA ?cues for hand placement? Stand-sit: SBA cues for hand placement? Bed-Chair: SBA with FWW for safe approach to surface d/t impulsivity ? Chair-bed: SBA with FWW for safe approach to surface, d/t impulsivity Provided skilled cues and instruction on performance and technique throughout. ? GAIT? Assistive Device: FWW? Weight bearing: full Assist: Mod verbal cue for using FWW, pt very impulsive Distance:? 50 feet x2 ? Deviation: tactile/verbal cue for decreased walking speed ? Therapeutic Exercises 32438 10: Direct one-on-one instruction in therapeutic exercises to develop strength, endurance, range of motion and flexibility. Exercises Seated LAQ, marching, Ankle pumps BLe 10 reps, Stand marching, hip abduction with BUE support on RW 2 sets 5 reps with rest between each exercise Provided skilled instruction in proper exercise performance Provided skilled manual cues to facilitate proper muscle recruitment and/or form: [] ASSESSMENT:? Pt required mod verbal/tactile cue for guidance while transitioning from recliner to toilet seat, pt requiring mod verbal cue for safety while gait training due to pt walking to fast. PLAN: continue pt engagement to achieve functional mobility goals until pt is ready for transfer to SNF. TREATMENT CODE/TIME: 31682j1, [id number] (11:35am-12:00pm)
--- NOTE | 2023-12-28 13:29 | W.PM.PROGNOT ---
Date of Service Date of service: 12/28/23 Time of Service: 13:29 Assessment and Plan Assessment and plan (1) Diverticulitis large intestine: Start date: 12/25/23 Status: Acute Assessment and plan: IV Zosyn, blood cultures no growth to date Endoscopy showed Mild gastritis with grade 3 hiatal hernia and a rectal polyp and colonic telangiectasia at 45 cm. There was no sign of recent bleeding but the telangiectasia was cauterized. Patient has extensive sigmoid diverticulosis diverticuli did not show signs of recent bleeding. Qualifiers: Diverticulitis bleeding: with bleeding Diverticulitis complication: without perforation or abscess Qualified Code(s): K57.33 - Diverticulitis of large intestine without perforation or abscess with bleeding (2) Acute blood loss anemia: Start date: 12/25/23 Status: Acute Assessment and plan: Continue Carafate and Protonix for his hiatal hernia and gastritis (3) Iron deficiency anemia due to chronic blood loss: Status: Chronic Assessment and plan: Patient is completed 3 doses of Venna for 400 mg each. He has a stable hemoglobin hematocrit. 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 However he does have mild to moderate mitral regurgitation and mild to moderate tricuspid regurgitation. Patient had a mild troponin leak during this hospitalization probably related to the severe anemia he presented with. His EKG did not show any acute ischemic changes. However I am recommending to his niece that he have an outpatient stress MPI to rule out underlying ischemic heart disease. I think the troponin leak was a demand ischemia event. Patient needs to be on GDT, including Entresto and spironolactone. will give extra dose of lasix today (5) Elevated troponin I level: Status: Acute Assessment and plan: Patient presented with a normal troponin less than 50 but this peaked at 390 ng/L and has steadily declined since, now at 86 this morning. (6) Pulmonary hypertension: Status: Acute Assessment and plan: RVSP of 51 mm. He has mild to moderate tricuspid regurgitation. Based on his history of severe snoring for many years and his obesity and increased neck circumference I suspect he has undiagnosed obstructive sleep apnea and he should pursue PSG upon discharge. continue diuresis but change to po lasix, monitor labs Will obtain CTA of the chest to rule out chronic thromboembolic disease. If this is negative then I think further evaluation including PFTs and PSG as an outpatient. His niece told me that Saleem has been a longtime snorer but as far she knows he has never been worked up for sleep apnea. (7) Tricuspid regurgitation: Status: Acute Qualifiers: Cardiac valve disease etiology: nonrheumatic Qualified Code(s): I36.1 - Nonrheumatic tricuspid (valve) insufficiency (8) Mitral regurgitation: Status: Chronic Qualifiers: Cardiac valve disease etiology: nonrheumatic Qualified Code(s): I34.0 - Nonrheumatic mitral (valve) insufficiency (9) HTN (hypertension): Status: Chronic Assessment and plan: Updated echocardiogram demonstrates HFmEF w/ mild global hypokinesis w/ LVEF 51% but no RWMA, however he has moderate PHTN w/ RVSP 51 mm but normal RV size and function w/ mild to moderate MR and TR DC diltiazem treat hypertension as well as HFpEF with ARB/nephrolysin inhibitor, adjust diuretics to maintain euvolemia, pursue workup for pulmonary hypertension including outpatient PSG and PFTs, check chest CTA to rule out chronic thromboembolic disease. 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 Check PSA. Alkaline phosphatase was not elevated. 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 Qualifiers: Hyperlipidemia type: mixed hyperlipidemia Qualified Code(s): E78.2 - Mixed hyperlipidemia (13) Mentally challenged: Status: Chronic Assessment and plan: Decreased mental capacity since child status post meningitis requiring supervision by family at first with his mother and then with his brother now placed at the [facility] with his nieces as co-guardian's since March 2023. (14) DVT prophylaxis: Status: Acute Assessment and plan: Patient is not a candidate for chemoprophylaxis therefore he is receiving SCD compression Subjective Subjective Interval history since last seen: Saleem has no acute complaints. He is sitting up visiting w/ his great niece, who is a a nurse. He denies any dyspnea or pain. He remains on oxygen at 3 lpm NC. Exam Narrative Exam Narrative: Saleem sitting up in his chair talking with his great niece he does not appear to be dyspneic he is still on oxygen at 3 L/min per nasal cannula SpO2 has been 92 to 94% today although last night he dropped down to 88% Lungs clear to auscultation although diminished at the bases no rhonchi Heart is regular rate and rhythm with systolic murmur at the apex Abdomen soft and nontender Extremities without edema Objective Last Vital Signs Temp 37.0 C 12/28/23 11:36 Pulse 90 12/28/23 11:36 Resp 17 12/28/23 11:36 BP 103/56 L 12/28/23 11:36 Pulse Ox 94 12/28/23 11:36 Laboratory Results - last 24 hr 12/28/23 06:04 WBC 11.29 H RBC 3.60 L Hgb 8.6 L Hct 30.2 L MCV 84 MCH 23.9 L MCHC 28.5 L RDW 22.9 H Plt Count 199 MPV Immature Gran % 0.0 Neutrophils % 74.0 Band Neutrophils % 1 Lymphocytes % 12.0 Monocytes % 7.0 Eosinophils % 5.0 Basophils % 0.0 Metamyelocytes % 1 Nucleated RBC % 0.0 Absolute Neutrophils 8.47 H Absolute Lymphocytes 1.35 Absolute Monocytes 0.79 Absolute Eosinophils 0.56 Absolute Basophils 0.00 RBC Morphology See Below Hypochromasia 1+ Anisocytosis 2+ Microcytosis 1+ Spherocytes 1+ Sodium 143 Potassium 3.6 Chloride 103 Carbon Dioxide 31.4 Anion Gap 8.6 BUN 10 Creatinine 1.5 H Est GFR (CKD-EPI 2020) 47.65 Glucose 95 Calcium 8.7 Triglycerides 152 H Total Cholesterol 115 LDL Cholesterol, Calc 52 HDL Cholesterol 33 L Time Spent with Patient Time Spent with Patient: 35-49 minutes Time was spent: preparing to see the patient(eg.review tests), ordering medications,tests, procedures, referring, communicating with other health director of critical care, indepentently interpreting results, counseling the patient and care coordination
[2023-12-28] MEDS: Normal Saline - Diluent 50 ML VIAL IJ (20:37)
[2023-12-28] MEDS: Omnipaque 350 MG/ML 100 ML BTL IJ (20:39)
--- NOTE | 2023-12-28 20:46 | DI.CT_ITS ---
Exam(s) CT CHEST PE CTA EXAM: CT CHEST PE CTA CLINICAL HISTORY: hypoxemia. TECHNIQUE: Imaging Protocol: Axial CT angiography was performed with multi-slice acquisition and mu lti-planar reconstructions as well as axial, coronal and sagittal MIP reconstructions. CONTRAST MATERIAL: Intravenous: Omnipaque 350 Contrast volume:100 ml COMPARISON: CR,XR XR CHEST 2V PA LATERAL from 12/24/[address] ABDOMEN PELVIS W from 12/24/2023 CR XR PORTABLE CHEST AP from 12/26/2023 FINDINGS: Pulmonary Arteries: No evidence of filling defect to suggest pulmonary emboli. Tracheobronchial tree: No mucous plugging. Mediastinum and Lyn: No dominant adenopathy or fluid collection. Hiatal hernia. Pulmonary parenchyma: Expiratory changes. Lungs not well evaluated. Basilar atelectasis. No domina nt measurable mass. Interlobular septal thickening consistent with pulmonary edema. Pleura: Small bilateral pleural effusions. No pneumothorax. Heart: The heart is moderately dilated. No coronary artery calcifications are seen. Aorta: Thoracic aorta non-dilated. No dissection. Upper abdomen: No acute findings. Bones: Unremarkable for age. Tubes, Catheters, and Lines: None Soft tissues: Gynecomastia. IMPRESSION: No evidence of pulmonary embolism. Findings consistent with CHF. RADIATION DOSE DELIVERED: Total DLP DATA REPOSITORY: All CT scans at this facility are submitted to the National Radiology Data Registry (NRDR) Dose Index Registry (DIR) with the [employer] ([employer]). RADIATION OPTIMIZATION: All CT scans at this facility use at least one of these dose optimization te chniques: automated exposure control; mA and/or kV adjustment per patient size (includes targeted exa ms where dose is matched to clinical indication); or iterative reconstruction.
--- NOTE | 2023-12-28 21:45 | DI.VRAD_ITS ---
PROCEDURE INFORMATION: Exam: CTA Chest With Contrast Exam date and time: 12/28/2023 8:26 PM Age: 78 years old Clinical indication: Other: Hypoxemia TECHNIQUE: Imaging protocol: Computed tomographic angiography of the chest with contrast. Exam focused on the arteries. 3D rendering (Not supervised by radiologist): MIP and/or 3D reconstructed images were created by the technologist. Contrast material: OMNIPAQUE 350; Contrast volume: 100 ml; Contrast route: INTRAVENOUS (IV); COMPARISON: CR XR PORTABLE CHEST AP 12/26/2023 11:17 AM FINDINGS: Pulmonary arteries: No pulmonary emboli. Aorta: No aortic aneurysm. No aortic dissection. Lungs: Minor scattered ground-glass opacities and minor interlobular septal thickening almost certainly minor pulmonary edema given the morphology.. Standard mild pulmonary emphysema. Mild dependent subsegmental atelectasis. Pleural spaces: Small khwru-iwyivkl-goyl-left pleural effusions. No pneumothorax. Heart: Moderate cardiomegaly. Small pericardial fluid. Lymph nodes: Mildly prominent multi station mediastinal adenopathy. Diaphragm: Moderate hiatal hernia. Bones/joints: No acute fracture. Soft tissues: Gynecomastia. IMPRESSION: 1. No pulmonary emboli are seen. 2. Moderate cardiomegaly. 3. Atrv-mj-vypzlphx CHF. 4. Mild dependent subsegmental atelectasis. 5. Additional findings as described. Dictated and Authenticated by: Teri Mccullough MD. Ordering:[facility] Zoey Gilbert MD
[2023-12-29] VITALS (8 sets, daily range): BP systolic 99–121; BP diastolic 52–64; PULSE 94–99; RESP 15–24; TEMP 36.6–37.7; O2SAT 87–94
[2023-12-29] MEDS: PIPERACILLIN/TAZO 2.25 GM in Normal Saline 50 ML IVPB ×4 (04:15→21:47)
[2023-12-29 06:45] LABS: HCT 31.3 % (40.0-50.0)
[2023-12-29 07:02] LABS: Anion Gap 9.4 mmol/L (3-11); BUN 18 mg/dL (7-18); CO2 27.6 mmol/L (21.0-32.0); CREATININE 1.4 mg/dL (0.70-1.30); Calcium 8.9 mg/dL (8.5-10.1); Chloride 102 mmol/L (98-107); Estimated GFR 51.77 (mL/min/1.73m2); Glucose 105 mg/dL (74-106); Potassium 4.2 mmol/L (3.5-5.1); Sodium 139 mmol/L (136-145)
[2023-12-29] MEDS: Tiotropium Bromide-Respimat 10 PUFF INH 2 PUFF IH (08:13)
[2023-12-29 08:37] LABS: Lab Add On Test DONE
[2023-12-29 08:40] LABS: Abs Immature Grans 0.45 10^3/uL (0.0-0.06); Absolute Basophil Count 0.07 10^3/uL (0.0-0.2); Absolute Eosinophil Count 0.43 10^3/uL (0.0-0.7); Absolute Lymphocyte Count 1.19 10^3/uL (1.2-3.4); Absolute Monocyte Count 0.99 10^3/uL (0.1-0.8); Basophils % 0.6 %; Eosinophils % 3.7 %; HCT 31.2 % (40.0-50.0); HGB 9.1 g/dL (13.5-17.5); Immature Grans % 3.9 %; Lymphocytes % 10.2 %; MCH 24.3 pg (27.0-33.0); MCHC 29.2 % (32.0-36.0); MCV 83 fL (80-95); Monocytes % 8.5 %; Neutrophils % 73.1 %; RBC 3.75 10^6/uL (4.36-5.78); WBC 11.66 10^3/uL (4.4-10.8)
[2023-12-29 08:54] LABS: Absolute Neutrophil Count 8.52 10^3/uL (1.2-6.7)
[2023-12-29 08:55] LABS: Anisocytosis 2+; Diff Comment Diff Reviewed
[2023-12-29] MEDS: Docusate Sodium 100 MG CAP PO ×3 (09:18→19:31)
[2023-12-29] MEDS: Sucralfate 1 GM TAB PO ×4 (09:18→23:41)
[2023-12-29] MEDS: Cholecalciferol (Vitamin D3) 1,000 UNIT TAB 1000 UNITS PO (09:18)
[2023-12-29] MEDS: Sacubitril/Valsartan 24 mg/26 mg TAB 1 EACH PO ×2 (09:18→19:31)
[2023-12-29] MEDS: Spironolactone 25 MG TAB PO (09:18)
[2023-12-29] MEDS: Normal Saline Flush 10 ML SYR IVP ×5 (09:19→19:31)
[2023-12-29] MEDS: Furosemide 40 MG/4 ML VIAL IVP ×2 (09:19→16:46)
[2023-12-29] MEDS: Fluticasone NASAL SPRAY 16 GM BTL NS (10:30)
--- NOTE | 2023-12-29 11:48 | PT.INTREAT ---
PT Notes Visit Reasons: Acute blood loss anemia, CHF Date: 12/29/2023 PRECAUTIONS:mady CAMPOS Telemetry SUBJECTIVE: Pt in bed when approached for therapy, agreed to participating with therapy session. OBJECTIVE: NC with 2L [address] earl to bedside drainage. PAIN: none VITALS: Monitored by nursing Therapeutic Activities 56986 15mins: Direct one-on-one instruction in dynamic activities to improve functional performance. ? BED MOBILITY/TRANSFERS? Rolling L/R: Supervision Supine-sit: Supervision ? Sit-supine: Supervision ? Sit-stand: supervision? Stand-sit: supervision? Bed-Chair: SBA with FWW for safe approach to surface d/t impulsivity ? Chair-bed: SBA with FWW for safe approach to surface, d/t impulsivity Provided skilled cues and instruction on performance and technique throughout. ? GAIT? Assistive Device: FWW? Weight bearing: full Assist: Mod verbal cue for using FWW, pt very impulsive Distance:? 300 feet ? Deviation: tactile/verbal cue for decreased walking speed, staying in the middle of the hallway to avoid colliding at wall.? Therapeutic Exercises 73248: Direct one-on-one instruction in therapeutic exercises to develop strength, endurance, range of motion and flexibility. Exercises Seated LAQ, marching, Ankle pumps BLe 10 reps, Stand marching, hip abduction with BUE support on RW 2 sets 5 reps with rest between each exercise Provided skilled instruction in proper exercise performance Provided skilled manual cues to facilitate proper muscle recruitment and/or form: [] ASSESSMENT:? Pt continues to required mod verbal/tactile cue for guidance to decrease carlos eduardo speed when walking as well as avoiding meandering during gait training. PLAN: continue pt engagement to achieve functional mobility goals until pt is ready for transfer to SNF. TREATMENT CODE/TIME: 56244j5, 30199 (11:00am-11:15am)
[2023-12-29] MEDS: Pantoprazole 40 MG TABCR PO ×2 (12:10→19:31)
--- NOTE | 2023-12-29 17:19 | W.PM.PROGNOT ---
Date of Service Date of service: 12/29/23 Time of Service: 17:19 Assessment and Plan Assessment and plan (1) Diverticulitis large intestine: Start date: 12/25/23 Status: Acute Assessment and plan: IV Zosyn(since 12/24) blood cultures no growth to date, probably can finish out today then transition to Augmentin for another 5 days for total of 10 days. Endoscopy showed Mild gastritis with grade 3 hiatal hernia and a rectal polyp and colonic telangiectasia at 45 cm. There was no sign of recent bleeding but the telangiectasia was cauterized. Patient has extensive sigmoid diverticulosis diverticuli did not show signs of recent bleeding. Qualifiers: Diverticulitis bleeding: with bleeding Diverticulitis complication: without perforation or abscess Qualified Code(s): K57.33 - Diverticulitis of large intestine without perforation or abscess with bleeding (2) Acute blood loss anemia: Start date: 12/25/23 Status: Acute Assessment and plan: Continue Carafate and Protonix for his hiatal hernia and gastritis (3) Iron deficiency anemia due to chronic blood loss: Status: Chronic Assessment and plan: Patient is completed 3 doses of Venna for 400 mg each. He has a stable hemoglobin hematocrit. Hb up to 9.1 gm today (4) Heart failure with mid-range ejection fraction (HFmEF): Status: Acute Assessment and plan: Echocardiogram shows mild systolic impairment of his LV with an LVEF of 51% and global dysfunction no regional wall motion abnormalities however he does have pulmonary hypertension with an RVSP of 51 mm however the RV is not dilated nor there are RV systolic dysfunction. However he does have mild to moderate mitral regurgitation and mild to moderate tricuspid regurgitation. Patient had a mild troponin leak during this hospitalization probably related to the severe anemia he presented with. His EKG did not show any acute ischemic changes. Recommend outpatient stress MPI. Patient needs to be on GDT, including Entresto and spironolactone, continuing intravenous lasix to try further diuresis and hopefully wean from oxygen (5) Elevated troponin I level: Status: Acute Assessment and plan: Patient presented with a normal troponin less than 50 but this peaked at 390 ng/L and has steadily declined to 86, no longer monitoring levels; consider oupatient Lexiscan MPI (6) Pulmonary hypertension: Status: Acute Assessment and plan: RVSP of 51 mm. He has mild to moderate tricuspid regurgitation. Based on his history of severe snoring for many years and his obesity and increased neck circumference I suspect he has undiagnosed obstructive sleep apnea and he should pursue PSG upon discharge. CTA last night negative for thromboembolic disease but demonstrates: pulmonary interlobular thickening, small bilateral pleural effusions, no infiltrates or masses, no mucous plugging, bibasilar atelectasis, cardiomegaly (7) Tricuspid regurgitation: Status: Acute Qualifiers: Cardiac valve disease etiology: nonrheumatic Qualified Code(s): I36.1 - Nonrheumatic tricuspid (valve) insufficiency (8) Mitral regurgitation: Status: Chronic Qualifiers: Cardiac valve disease etiology: nonrheumatic Qualified Code(s): I34.0 - Nonrheumatic mitral (valve) insufficiency (9) HTN (hypertension): Status: Chronic Assessment and plan: Updated echocardiogram demonstrates HFmEF w/ mild global hypokinesis w/ LVEF 51% but no RWMA, however he has moderate PHTN w/ RVSP 51 mm but normal RV size and function w/ mild to moderate MR and TR DC diltiazem treat hypertension as well as HFpEF with ARB/nephrolysin inhibitor, adjust diuretics to maintain euvolemia, pursue workup for pulmonary hypertension including outpatient PSG and PFTs, check chest CTA to rule out chronic thromboembolic disease. 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 Assessment and plan: continue Spiriva, prn duoneb, not actively wheezing; recommend follow up outpatient PFT Qualifiers: Emphysema type: other Qualified Code(s): J43.8 - Other emphysema (12) Hyperlipidemia: Status: Chronic Assessment and plan: not currently on a statin, should be on one based on his risks Qualifiers: Hyperlipidemia type: mixed hyperlipidemia Qualified Code(s): E78.2 - Mixed hyperlipidemia (13) Mentally challenged: Status: Chronic Assessment and plan: Decreased mental capacity since child status post meningitis requiring supervision by family at first with his mother and then with his brother now placed at the [facility] with his nieces as co-guardian's since March 2023. (14) DVT prophylaxis: Status: Acute Assessment and plan: Patient is not a candidate for chemoprophylaxis therefore he is receiving SCD compression (15) Discharge planning issues: Status: Acute Assessment and plan: transfer to [facility] early next week Subjective Subjective Interval history since last seen: Saleem has no acute complaints. He denies any dyspnea or pain. He is eating well. Exam Narrative Exam Narrative: alert, eating dinner Lungs: he takes poor inspiratory breaths, no rhonchi or wheezing but diminished breath sounds at the bases. Heart: RRR, no murmur Abddomen: soft, nondistended, nontender Extremities: no edema Objective Last Vital Signs Temp 37.2 C 12/29/23 16:19 Pulse 95 H 12/29/23 16:19 Resp 20 12/29/23 16:19 BP 119/52 L 12/29/23 16:19 Pulse Ox 89 L 12/29/23 16:19 Laboratory Results - last 24 hr 12/29/23 12/29/23 12/29/23 06:22 06:22 06:22 WBC 11.66 H RBC 3.75 L Hgb 9.0 L 9.1 L Hct 31.3 L 31.2 L MCV 83 MCH 24.3 L MCHC 29.2 L RDW 25.0 H Plt Count MPV Immature Gran % 3.9 Neutrophils % 73.1 Lymphocytes % 10.2 Monocytes % 8.5 Eosinophils % 3.7 Basophils % 0.6 Nucleated RBC % 0.0 Absolute Neutrophils 8.52 H Absolute Lymphocytes 1.19 L Absolute Monocytes 0.99 H Absolute Eosinophils 0.43 Absolute Basophils 0.07 RBC Morphology See Below Anisocytosis 2+ Sodium 139 Potassium 4.2 Chloride 102 Carbon Dioxide 27.6 Anion Gap 9.4 BUN 18 Creatinine 1.4 H Est GFR (CKD-EPI 2020) 51.77 Glucose 105 Calcium 8.9 Add-On Test Request DONE Time Spent with Patient Time Spent with Patient: 25-34 minutes Time was spent: preparing to see the patient(eg.review tests), ordering medications,tests, procedures, referring, communicating with other health career placement services counselor, indepentently interpreting results and care coordination
[2023-12-29] MEDS: Acetaminophen 325 MG TAB PO (19:30)
[2023-12-30] MEDS: PIPERACILLIN/TAZO 2.25 GM in Normal Saline 50 ML IVPB ×2 (04:50→10:54)
[2023-12-30] MEDS: Normal Saline Flush 10 ML SYR IVP ×2 (04:50→09:19)
[2023-12-30 05:04] VITALS: BP 112/64; PULSE 99; RESP 28; TEMP 37.3; O2SAT 90
[2023-12-30 06:41] LABS: Abs Immature Grans 0.34 10^3/uL (0.0-0.06); Absolute Basophil Count 0.06 10^3/uL (0.0-0.2); Absolute Eosinophil Count 0.43 10^3/uL (0.0-0.7); Absolute Lymphocyte Count 1.18 10^3/uL (1.2-3.4); Absolute Monocyte Count 0.72 10^3/uL (0.1-0.8); Absolute Neutrophil Count 6.81 10^3/uL (1.2-6.7); Basophils % 0.6 %; Eosinophils % 4.5 %; HCT 32.7 % (40.0-50.0); HGB 9.5 g/dL (13.5-17.5); Immature Grans % 3.6 %; Lymphocytes % 12.4 %; MCH 24.6 pg (27.0-33.0); MCHC 29.1 % (32.0-36.0); MCV 85 fL (80-95); Monocytes % 7.5 %; Neutrophils % 71.4 %; Platelet Count 181 10^3/uL (130-400); RBC 3.86 10^6/uL (4.36-5.78); RDW 25.9 % (11.8-14.1); RDW-SD 65.9 fL; WBC 9.54 10^3/uL (4.4-10.8)
[2023-12-30 07:11] LABS: Anion Gap 5.4 mmol/L (3-11); BUN 21 mg/dL (7-18); CO2 31.6 mmol/L (21.0-32.0); CREATININE 1.7 mg/dL (0.70-1.30); Calcium 9.1 mg/dL (8.5-10.1); Chloride 102 mmol/L (98-107); Estimated GFR 41.01 (mL/min/1.73m2); Glucose 102 mg/dL (74-106); NT-proBNP 1325 pg/mL (<300); Potassium 3.5 mmol/L (3.5-5.1); Sodium 139 mmol/L (136-145)
[2023-12-30 07:14] LABS: Anisocytosis 3+; Diff Comment RBC Morph Reviewed; Polychromasia Present
[2023-12-30 08:09] VITALS: BP 107/62; PULSE 95; RESP 18; TEMP 36.9; O2SAT 90
[2023-12-30] MEDS: Tiotropium Bromide-Respimat 10 PUFF INH 2 PUFF IH (08:45)
[2023-12-30 08:47] VITALS: O2SAT 91
--- NOTE | 2023-12-30 09:07 | W.SPSTP ---
Date of service: 12/30/23 Time of Service: 08:40 Subjective Subjective: Patient received alert/awake Objective: Patient Positioning: upright in a chair with breakfast tray Oxygen Tolerance: tolerating nasal cannula Oral Hygiene: completed before PO trials PO Trials Assessed: IDDSI 0 Thin Liquids (Water via straw, coffee via cup) IDDSI 6 Soft & Bite Size Solid (scrambled eggs, fruit cup) IDDSI 7 Easy to Chew (Muffin) Oral Phase Findings: Diffculty chewing Pharyngeal Phase Findings: Delayed swallow initiation Cough intermittently with thin liquids as well as after muffin Assessment/Impression: Patient tolerating diet well- with some intermittent coughing appreciated, though per family this is baseline and no new pulmonary concerns. Updated patient signage in room to reflect accurate diet order as listed below, and upgraded supervision levels in light of improved patient alertness. He would benefit from intermittent/distant supervision, primarily to assist with tray set up and upright positioning to reduce aspiration precautions, but otherwise no longer requires close supervision with PO. Anticipate discharge home today- no further PHYSICAL THERAPY RESIDENT needs indicated at d/c. Plan: Recommendation at Discharge: No further PHYSICAL THERAPY RESIDENT services Diet Recommendations: SOLIDS: 6-Soft & Bite-Sized Solids (Per dentitition- soft foods recommended) LIQUIDS: 0-Thin Liquids MEDICATIONS: Whole with pudding RISK MANAGEMENT: HOB upright as tolerated; upright for all PO intake. Encourage physical mobility as tolerated. Remain upright at least 30 min after meals Oral hygiene BID/2x per day Level of Assistance/Supervision: Close with meals, assist as needed Strategies/Adaptations/Assistive Equipment: Small sips and bites when eating, Slow rate of intake Education Provided to: Nursing Topics Addressed: PHYSICAL THERAPY RESIDENT findings/recommendations Total Time: 840-900AM- 20 minutes [id number] Dysphagia therapy
[2023-12-30] MEDS: Sacubitril/Valsartan 24 mg/26 mg TAB 1 EACH PO (09:16)
[2023-12-30] MEDS: Pantoprazole 40 MG TABCR PO (09:16)
[2023-12-30] MEDS: Docusate Sodium 100 MG CAP PO (09:16)
[2023-12-30] MEDS: Spironolactone 25 MG TAB PO (09:16)
[2023-12-30] MEDS: Sucralfate 1 GM TAB PO ×2 (09:16→11:46)
[2023-12-30] MEDS: Furosemide 40 MG/4 ML VIAL IVP (09:19)
[2023-12-30 10:13] LABS: Haptoglobin 246 mg/dL (32-197)
[2023-12-30] MEDS: Fluticasone NASAL SPRAY 16 GM BTL NS (10:17)
[2023-12-30] MEDS: Cholecalciferol (Vitamin D3) 1,000 UNIT TAB 1000 UNITS PO (10:17)
[2023-12-30 10:23] VITALS: O2SAT 91
--- NOTE | 2023-12-30 10:58 | W.PM.DS.N ---
Date of service: 12/30/23 Time of Service: 11:10 DS: Diagnosis Discharge Diagnosis (1) Diverticulitis large intestine: Status: Acute Asessment and Plan: -had been on zosyn 12/24-12/29 -transition to PO augmentin for an additional 5 days -Endoscopy showed Mild gastritis with grade 3 hiatal hernia and a rectal polyp and colonic telangiectasia at 45 cm. There was no sign of recent bleeding but the telangiectasia was cauterized. Patient has extensive sigmoid diverticulosis diverticuli did not show signs of recent bleeding. (2) Acute blood loss anemia: Status: Acute Asessment and Plan: Continue Carafate and Protonix for his hiatal hernia and gastritis (3) Iron deficiency anemia due to chronic blood loss: Status: Chronic Asessment and Plan: Patient is completed 3 doses of Venna for 400 mg each. He has a stable hemoglobin hematocrit. Hb up to 9.1 gm today (4) Heart failure with mid-range ejection fraction (HFmEF): Status: Acute Asessment and Plan: Echocardiogram shows mild systolic impairment of his LV with an LVEF of 51% and global dysfunction no regional wall motion abnormalities however he does have pulmonary hypertension with an RVSP of 51 mm however the RV is not dilated nor there are RV systolic dysfunction. However he does have mild to moderate mitral regurgitation and mild to moderate tricuspid regurgitation. (5) Elevated troponin I level: Status: Acute Asessment and Plan: Patient presented with a normal troponin less than 50 but this peaked at 390 ng/L and has steadily declined to 86, no longer monitoring levels; consider oupatient Lexiscan MPI (6) Pulmonary hypertension: Status: Acute (7) Tricuspid regurgitation: Status: Acute (8) Mitral regurgitation: Status: Chronic (9) HTN (hypertension): Status: Chronic Asessment and Plan: DC diltiazem treat hypertension as well as HFpEF with ARB/nephrolysin inhibitor, adjust diuretics to maintain euvolemia, pursue workup for pulmonary hypertension including outpatient PSG and PFTs, check chest CTA to rule out chronic thromboembolic disease. 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 Asessment and Plan: continue Spiriva, prn duoneb, not actively wheezing; recommend follow up outpatient PFT (12) Hyperlipidemia: Status: Chronic (13) Mentally challenged: Status: Chronic (14) DVT prophylaxis: Status: Acute (15) Discharge planning issues: Status: Acute Discharge Plan Disposition Patient Disposition: Custodial Facility(SNF) Condition: Good Discharge Details Reason For Visit: Acute blood loss anemia, CHF Admit Date/Time: 12/25/23 00:50 Admit Provider: Collin Barth Attending Provider: Collin Barth [facility] Course: Patient initially presented with signs and symptoms consistent with diverticulitis resulting in acute blood loss anemia type II NSTEMI. He was treated with 6 days of zosyn and will be transitioned to PO augmentin for an additional 5 days of treatment. His colonoscopy showed a rectal polyp and telangiectasia which was cauterized, and his EGD showed grade 3 hiatal hernia. Given that his infection improved and his anemia resolved, it was determined that he was stable for discharge back to [facility]. Home Meds and New Rx's Prescriptions: New spironolactone 25 mg Tablet 25 mg PO DAILY Qty: 90 0RF pantoprazole 40 mg Tablet,Delayed Release (Dr/Ec) 40 mg PO BID@ Qty: 90 0RF Spiriva Respimat 2.5 mcg/actuation Mist 2 puff inhalation DAILY Qty: 4 2RF Entresto 24-26 mg Tablet 1 tab PO BID Qty: 90 0RF furosemide [Lasix] 20 mg tablet 20 mg PO BID Qty: 90 0RF amoxicillin-pot clavulanate 875-125 mg tablet 1 tab PO BID Qty: 10 0RF Continued fluticasone propionate 50 mcg/actuation spray,suspension 1 spray INTRANASAL DAILY ipratropium-albuterol 0.5 mg-3 mg(2.5 mg base)/3 mL solution for nebulization 3 ml INHALATION PRN sucralfate 1 gram tablet 1 g PO BID lovastatin 20 mg tablet 20 mg PO QPM Discontinued diltiazem HCl 60 mg capsule,extended release 12 hr 60 mg PO DAILY Discharge Instructions Activity:: Activity as Tolerated Equipment/Supplies:: O2, 1L NC Diet:: As Tolerated Discharge Orders Discharge Orders: Discharge Order (Routine); Ordered 12/30/23 Ordered By: Mynor Dickinson DS: Summary Time Spent with Patient providing and/or coordinating discharge services: Greater than 30 minutes Status at Discharge Functional status at discharge: independent ambulation Overall status at discharge: patient is back to baseline Mental Status: mental status grossly normal Speech and Movement: speech and movement normal Mood: congruent mood Affect: normal affect Quality:SDOH Health Related Social Needs: No Data to Display Exam Narrative Exam Narrative: well appearing gentleman sitting up in the chair in no acute distress, awake, alert, oriented to person and place, heart RRR, lungs CTAB, abdomen soft, non-tender, non-distended Psych Mental Status: mental status grossly normal Speech and Movement: speech and movement normal Mood: congruent mood Affect: normal affect DS: Data Vitals/I&O Vitals and I&O: Vital Signs Temperature 98.4 F 12/30/23 08:09 Temperature Source Temporal Artery Scan 12/30/23 08:09 Pulse 95 H 12/30/23 08:09 Pulse Rhythm Regular 12/30/23 07:00 Pulse 92 H 12/27/23 14:31 Respiratory Rate 18 12/30/23 08:09 Respiratory Effort Normal 12/30/23 07:00 Respiratory Depth Normal 12/30/23 07:00 Respiratory Pattern Normal 12/30/23 07:00 Blood Pressure 107/62 12/30/23 08:09 Blood Pressure Mean 85 12/27/23 14:30 Pulse Oximetry 91 L 12/30/23 10:23 Respiratory End-tidal CO2 29 12/27/23 14:31 Oxygen Delivery Method Nasal Cannula 12/30/23 10:23 Oxygen Flow Rate 1 12/30/23 10:23 Pain Level 0 12/30/23 05:04 Comment pt had o2 off, it was put back on and after 15 mins later RN states was at 93% on 3L 12/29/23 03:59 Intake & Output 12/29/23 12/30/23 12/30/23 17:59 05:59 17:59 Intake Total 290 / 290 100 / 390 50 / 50 Output Total 2350 / 2350 725 / 3075 Balance -0 / -0 -625 / -2685 50 / 50 Weight 189 lb 13.088 oz Intake: IV 50 / 50 100 / 150 50 / 50 Oral 240 / 240 Output: Urine 2350 / 2350 725 / 3075 Other: Urine Color Yellow Yellow Straw Urine Appearance Clear Cloudy Clear Data Completed and Pending Labs on day of discharge: Labs from last 24 hours 12/30/23 06:30 WBC 9.54 RBC 3.86 L Hgb 9.5 L Hct 32.7 L MCV 85 MCH 24.6 L MCHC 29.1 L RDW 25.9 H Plt Count 181 MPV Immature Gran % 3.6 Neutrophils % 71.4 Lymphocytes % 12.4 Monocytes % 7.5 Eosinophils % 4.5 Basophils % 0.6 Nucleated RBC % 0.0 Absolute Neutrophils 6.81 H Absolute Lymphocytes 1.18 L Absolute Monocytes 0.72 Absolute Eosinophils 0.43 Absolute Basophils 0.06 RBC Morphology See Below Polychromasia Present Anisocytosis 3+ Sodium 139 Potassium 3.5 Chloride 102 Carbon Dioxide 31.6 Anion Gap 5.4 BUN 21 H Creatinine 1.7 H Est GFR (CKD-EPI 2020) 41.01 Glucose 102 Calcium 9.1 NT-Pro-B Natriuret Pep 1325 H PFSH All Active Problems (Updated 12/29/23 @ 20:09 by Vladimir Greer MD) Discharge planning issues (Acute) DVT prophylaxis (Acute) Tricuspid regurgitation (Acute) Mitral regurgitation (Chronic) Pulmonary hypertension (Acute) Heart failure with mid-range ejection fraction (HFmEF) (Acute) Acute hypoxemic respiratory failure (Acute) Diverticula of colon (Acute) Elevated troponin I level (Acute) Mentally challenged (Chronic) Hyperlipidemia (Chronic) Vitamin D deficiency (Chronic) COPD (chronic obstructive pulmonary disease) with emphysema (Chronic) Acute blood loss anemia (Acute) Iron deficiency anemia due to chronic blood loss (Chronic) BPH with obstruction/lower urinary tract symptoms (Chronic) Diverticulitis large intestine (Acute) HTN (hypertension) (Chronic) Pulmonary edema (Acute) Colitis (Acute) CHF (congestive heart failure) (Chronic) Anemia (Chronic) Nail dystrophy (Acute) Social History Smoking/Tobacco Use Status: Former Tobacco Use Smoking risk assessment performed?: Yes Alcohol Intake: never Housing: prison Time Spent with Patient Time Spent with Patient: <45 minutes Time was spent: preparing to see the patient(eg.review tests), obtaining and/or reviewing separately otained hiistory, ordering medications,tests, procedures, referring, communicating with other health respiratory care specialist, indepentently interpreting results, counseling the patient and care coordination
--- NOTE | 2023-12-30 12:18 | NUR.NOTE ---
Nursing Note: Dc'd earl catheter prior to dc back to the [facility] per Hospitalist. Pt toerated well, catheter tip in tact. Tiny amt of blood on the tip.
--- NOTE | 2023-12-30 12:28 | NUR.NOTE ---
Nursing Note: Call placed to the [facility] to give report, spoke to Aleksander. Advised that earl was just removed and if he does not urinate prior to leaving to please watch for void within 8 hours.
--- NOTE | 2023-12-30 12:29 | PTTR_ITS ---
PT Notes Visit Reasons: Acute blood loss anemia, CHF Date: 12/30/2023 PRECAUTIONS:mady CAMPOS Telemetry SUBJECTIVE: Pt in recliner with bLE elevated when approached for therapy, agreed to participating with therapy session. OBJECTIVE: NC with 2L [address] earl to bedside drainage. PAIN: none VITALS: Monitored by nursing Therapeutic Activities 10087 15mins: Direct one-on-one instruction in dynamic activities to improve functional performance. ? BED MOBILITY/TRANSFERS? Rolling L/R: Supervision Supine-sit: Supervision ? Sit-supine: Supervision ? Sit-stand: supervision? Stand-sit: supervision? Bed-Chair: SBA with FWW for safe approach to surface d/t impulsivity ? Chair-bed: SBA with FWW for safe approach to surface, d/t impulsivity Provided skilled cues and instruction on performance and technique throughout. ? GAIT? Assistive Device: FWW? Weight bearing: full Assist: SBA Mod verbal cue for using FWW, pt very impulsive Distance:? 300 feet ? Deviation: intermittent verbal cue for decreased walking speed, and to attend to task.? Therapeutic Exercises 47977: Direct one-on-one instruction in therapeutic exercises to develop strength, endurance, range of motion and flexibility. Exercises Seated LAQ, marching, Ankle pumps BLE 10 reps, Stand marching, hip abduction with BUE support on RW 2 sets 7reps with rest between each exercise Provided skilled instruction in proper exercise performance Provided skilled manual cues to facilitate proper muscle recruitment and/or form: [] ASSESSMENT:? Pt continues to require cues >50% of the time to attend to task as he is easily distracted during ambulation which increases his lateral drifting. He able to perform standing unsupported tasks within K[facility]LOE without LOB and SBA. Saleem is dependent for tubing management ( earl and oxygen) during al functional tasks.Anticipate Pt. to be discharged to [facility] PLAN: continue pt engagement to achieve functional mobility goals until pt is ready for transfer to SNF. TREATMENT CODE/TIME: 03714h4, 06017 ([id number])
[2023-12-30 12:53] VITALS: O2SAT 87
--- NOTE | 2023-12-30 17:58 | PDOC.CMDIS ---
Date of service: 12/30/23 Time of Service: 17:58 LACE Index Scoring Tool Questions: Length of Stay (in days): 4 - 6 Was the patient admitted via the E.D.?: Yes Comorbidities: Congestive Heart Failure and Chronic Pulmonary Disease E.D. Visits: 1 Answers: Total Score: 13 Risk of Readmission: High Risk Care Management Discharge Plan Reason for Hospitalization: CHF and anemia Discharge Plan: Norm will be discharged back to [facility] where he resides. He will follow up with facility providers and plan of care and transport with his niece Shara. Patient/Family Education Needs: review discharge instructions, limitations, follow up plan and discuss Ask Me Three Services Needed at Discharge: Retirement Facility SDOH Health Related Social Needs: No Data to Display
== END 2023-12-30 13:05 | disposition skilled nursing facility (03) | DRG 377 ==
LOC: ER 12-25 01:29 → ICU 12-25 01:31 → MS 12-26 09:51
PROVIDERS: Internal Medicine; Surgery; Admitting Provider Family Medicine; Emergency Provider Physician Assistant; PCP Nurse Practitioner Family; Visit Provider Family Medicine
PROC: 0DBP8ZX Excision of Rectum, Via Natural or Artificial Opening Endoscopic, Diagnostic (ICD-10-PCS; CPT 45380; principal; 2023-12-27 10:45)
DX: K57.33 Diverticulitis of large intestine without perforation or abscess with bleeding (principal); I21.A1 Myocardial infarction type 2; I50.23 Acute on chronic systolic (congestive) heart failure; D62 Acute posthemorrhagic anemia; N13.8 Other obstructive and reflux uropathy; I11.0 Hypertensive heart disease with heart failure; N40.1 Benign prostatic hyperplasia with lower urinary tract symptoms; E78.2 Mixed hyperlipidemia; F79 Unspecified intellectual disabilities; E55.9 Vitamin D deficiency, unspecified; J43.9 Emphysema, unspecified; Z87.891 Personal history of nicotine dependence; D12.8 Benign neoplasm of rectum; K44.9 Diaphragmatic hernia without obstruction or gangrene; K55.20 Angiodysplasia of colon without hemorrhage; K29.70 Gastritis, unspecified, without bleeding; I27.20 Pulmonary hypertension, unspecified; G47.33 Obstructive sleep apnea (adult) (pediatric); I08.1 Rheumatic disorders of both mitral and tricuspid valves; Z86.61 Personal history of infections of the central nervous system
CPT/HCPCS: 45380; 43235; 45382; 00123; 36410; 36415; 36430; 71275; 76942; 80048; 80053; 80061; 85027; 86850; 86900; 86901; 86920; 87040; 87641; 88305; 92526; 92610; 93005; 94640; 97110; 97116; 97162; 97530; 99222; 99231; 99233; 99285; 71045; 71046; 74177; 81003; 82607; 82728; 82746; 83010; 83540; 83605; 83615; 83735; 83880; 84153; 84484; 85014; 85018; 85025; 85610; 86140; 92507; 93010; 93306; 94664; 94760; 94762; 99223; 99232; 99238; J1756; J1940; J1941; J2405; J2470; J2543; J2704; J3490; J7620; P9016

== ENCOUNTER 2024-01-02 20:26 | Outpatient (REF) | payer SELFPAY ==
[2024-01-02 17:38] LABS: Abs Immature Grans 0.11 10^3/uL (0.0-0.06); Absolute Basophil Count 0.08 10^3/uL (0.0-0.2); Absolute Eosinophil Count 0.41 10^3/uL (0.0-0.7); Absolute Lymphocyte Count 1.21 10^3/uL (1.2-3.4); Absolute Monocyte Count 0.55 10^3/uL (0.1-0.8); Absolute Neutrophil Count 4.44 10^3/uL (1.2-6.7); Basophils % 1.2 %; HCT 36.7 % (40.0-50.0); HGB 10.5 g/dL (13.5-17.5); Immature Grans % 1.6 %; Lymphocytes % 17.8 %; MCH 25.4 pg (27.0-33.0); MCHC 28.6 % (32.0-36.0); MCV 89 fL (80-95); Monocytes % 8.1 %; Neutrophils % 65.3 %; RBC 4.14 10^6/uL (4.36-5.78); RDW 27.7 % (11.8-14.1); RDW-SD 89.4 fL
[2024-01-02 17:51] LABS: ALT 29 U/L (16-63); AST 20 U/L (15-37); Albumin 3.5 g/dL (3.4-5.0); Alkaline Phosphatase 57 U/L (46-116); Anion Gap 8.9 mmol/L (3-11); BUN 22 mg/dL (7-18); Bilirubin, Total 0.47 mg/dL (0.2-1.0); CO2 30.1 mmol/L (21.0-32.0); CREATININE 1.4 mg/dL (0.70-1.30); Chloride 105 mmol/L (98-107); Estimated GFR 51.77 (mL/min/1.73m2); Glucose 121 mg/dL (74-106); Potassium 4.1 mmol/L (3.5-5.1); Sodium 144 mmol/L (136-145); Total Protein 6.7 g/dL (6.4-8.2)
[2024-01-02 17:57] LABS: Anisocytosis 2+; Diff Comment PLT Morph Reviewed; Polychromasia Present
--- OUTSIDE RECORDS SUMMARY | 2024-01-02 20:28 | XMS_ITS | Referral Summary ---
Author Organization [facility] Address [address] [place] [id number] Care Team Providers Care Exercise Teacher Name Role Phone Unknown, Provider Primary Care Provider Encounters Date Type Department Care Team Description 12/28/2023 Lab Requisition [facility] Pathology & Laboratory [address] [address] Isreal Hernández MD Acute posthemorrhagic anemia 12/27/2023 Lab Requisition [facility] Pathology & Laboratory [address] [address] Outr Resulting Lab, Provider 12/25/2023 Lab Requisition [facility] Pathology & Laboratory [address] [address] Outr Resulting Lab, Provider from Last 3 Months Social History Tobacco Use Types Packs/Day Years [...] Procedure Name Priority Date/Time Associated Diagnosis Comments SURGICAL PATHOLOGY Today 12/27/2023 14 :01 EDT Acute posthemorrhagic anemia HAPTOGLOBIN Routine 12/27/2023 6:08 EDT PSA TOTAL, DIAGNOSTIC Routine 12/25/2023 2:20 EDT HEPATITIS C AB W REFLEX TO HCV RNA BY PCR Routine 12/21/2021 8:11 EDT from Last 3 Months or Most Recently Relevant to Health Maintenance Results * SURGICAL PATHOLOGY (12/27/2023 14:01 EDT) Note to Patient The following pathology results have been interpreted by your pathologist and may be available to you before your health provider has had the opportunity to review them. Please allow time for your provider to receive these results and explore management options, if applicable. 12/31/2023 13:59 EDT [facility] Final Diagnosis A. RECTUM, POLYP, BIOPSY: - Tubular adenoma. 12/31/2023 13:59 EDT [facility] Attestation By the signature below, the attending physician certifies that they have 1) personally conducted a gross and/or microscopic examination of the described specimen(s), and/or personally interpreted the results of laboratory testing of the described specimen(s), and 2) personally rendered or confirmed the above diagnosis. 12/31/2023 13:59 EDT [facility] at 1359 Clinical History Anemia 12/31/2023 13:59 EDT [facility] Gross Description A. Received in formalin labelled with proper patient identification (initials P, N) and rectal polyp is a mcmillan tissue fragment, 0.3 x 0.2 x 0.1 cm. Entirely submitted in A1. SAVANNAH PALOMINO(ASCP) 12/30/2023 7:58 12/31/2023 13:59 EDT [facility] Performing Lab [facility] 12/31/2023 13:59 EDT [facility] Scanned Images 12/31/2023 13:59 T [facility] Tissue SPECIMEN FROM RECTUM / Unknown 12/27/2023 14:01 EDT 12/28/2023 14:41 EDT Isreal Hernández MD PATHOLOGY ORDERABLES [facility] [address] [place] [address] * (ABNORMAL) HAPTOGLOBIN (12/27/2023 6:08 EDT) Pathologist [facility] Haptoglobin 246(H) 32 - 197 mg/dL 12/30/2023 10:08 EDT [facility] Blood VENOUS BLOOD / Unknown 12/27/2023 6:08 EDT 12/27/2023 17:13 EDT Provider Outr Resulting Lab CHEMISTRY & BLOOD GAS ORDERABLES Performing Organization Address [facility] Co de Phone Number [facility] [address], [place] [address] * PSA TOTAL, DIAGNOSTIC (12/25/2023 2:20 EDT) [facility] PSA 3.9 <=6.5 ng/mL 12/25/2023 18:56 EDT [facility] Blood VENOUS BLOOD / Unknown 12/25/2023 2:20 EDT 12/25/2023 17:26 EDT Narrative [facility] - 12/25/2023 18:56 EDT NOTE: Serum PSA concentration should not be interpreted as absolute evidence for the presence or absence of malignant disease. Assayed on Siemens zweitgeistIA Scirraaur XPT using chemiluminescent technology.??Values obtained by using different assay methods cannot be used interchangeably. Provider Outr Resulting Lab CHEMISTRY & BLOOD GAS ORDERABLES Performing Organization Address [facility] Co de Phone Number [facility] [address] [place] [phone] * HEPATITIS C AB W REFLEX TO HCV RNA BY PCR (12/21/2021 8:11 EDT) [facility] Hep C Antibody Negative Negative 12/22/2021 10:17 EDT [facility] Blood VENOUS BLOOD / Unknown 12/21/2021 8:11 EDT 12/21/2021 17:19 EDT Provider Outr Resulting Lab CHEMISTRY & BLOOD GAS ORDERABLES Performing Organization Address [facility] Co de Phone Number [facility] [address] [place] [address] from Last 3 Months or Most Recently Relevant to Health Maintenance Saleem Payan Personal/Family Self 1945 [facility] [address] [place] [address] Saleem Payan Personal/Family Self 1945 [facility] [address] [place] [address] Saleem Payan Personal/Family Self 1945 [facility] [address] [place] [address] Saleem Payan Personal/Family Self 1945 [facility] [address] [place] [address] Saleem Payan Personal/Family Self 1945 [facility] [address] [place] [address] Saleem Payan Personal/Family Self 1945 [facility] [address] [place] [address] Saleem Payan Personal/Family Self 1945 [facility] [address] [place] [address] Care Teams Exercise Teacher Relationship Specialty Start Date End Date Unknown, Provider, PCP - General 12/05/23
--- OUTSIDE RECORDS SUMMARY | 2024-01-02 20:28 | XMS_ITS | Clinical Summary ---
Author Organization [facility] Address [address] [place] [address] Care Team Providers Care Advisor To Command In Combat Name Role Phone Unknown, Provider Primary Care Provider Encounters Date Type Department Care Team Description 12/28/2023 Lab Requisition [facility] Pathology & Laboratory [address] [address] Isreal Hernández MD Acute posthemorrhagic anemia 12/27/2023 Lab Requisition [facility] Pathology & Laboratory [address] [address] Outr Resulting Lab, Provider 12/25/2023 Lab Requisition [facility] Pathology & Laboratory [address] [address] Outr Resulting Lab, Provider from Last 3 [...] explore management options, if applicable. 12/31/2023 13:59 [facility] Final Diagnosis A. RECTUM, POLYP, BIOPSY: - Tubular adenoma. 12/31/2023 13:59 [facility] Attestation By the signature below, the attending physician certifies that they have 1) personally conducted a gross and/or microscopic examination of the described specimen(s), and/or personally interpreted the results of laboratory testing of the described specimen(s), and 2) personally rendered or confirmed the above diagnosis. 12/31/2023 13:59 [facility] at 1359 Clinical History Anemia 12/31/2023 13:59 [facility] Gross Description A. Received in formalin labelled with proper patient identification (initials P, N) and rectal polyp is a mcmillan tissue fragment, 0.3 x 0.2 x 0.1 cm. Entirely submitted in A1. SAVANNAH PALOMINO(ASCP) 12/30/2023 7:58 12/31/2023 13:59 [facility] Performing Lab [facility] 12/31/2023 13:59 [facility] Scanned Images 12/31/2023 13:59 [facility] Tissue SPECIMEN FROM RECTUM / Unknown 12/27/2023 14:01 EDT 12/28/2023 14:41 EDT Isreal Hernández MD PATHOLOGY ORDERABLES Performing Organization Address City/[facility]/ZIP Co de Phone Number [facility] [address] [place] [address] * (ABNORMAL) HAPTOGLOBIN (12/27/2023 6:08 EDT) Pathologist [facility] Haptoglobin 246(H) 32 - 197 mg/dL 12/30/2023 10:08 EDT [facility] Blood VENOUS BLOOD / Unknown 12/27/2023 6:08 EDT 12/27/2023 17:13 EDT Provider Outr Resulting Lab CHEMISTRY & BLOOD GAS ORDERABLES Performing Organization Address [facility] Co de Phone Number [facility] [address] [place] [address] * PSA TOTAL, DIAGNOSTIC (12/25/2023 2:20 EDT) Pathologist [facility] PSA 3.9 <=6.5 ng/mL 12/25/2023 18:56 EDT [facility] Blood VENOUS BLOOD / Unknown 12/25/2023 2:20 EDT 12/25/2023 17:26 EDT Narrative [facility] - 12/25/2023 18:56 EDT NOTE: Serum PSA concentration should not be interpreted as absolute evidence for the presence or absence of malignant disease. Assayed on Siemens ADVIA Centaur XPT using chemiluminescent technology.??Values obtained by using different assay methods cannot be used interchangeably. Provider Outr Resulting Lab CHEMISTRY & BLOOD GAS ORDERABLES Performing Organization Address City/[facility]/ZIP Co de Phone Number [facility] [address] [place] [address] * HEPATITIS C AB W REFLEX TO HCV RNA BY PCR (12/21/2021 8:11 EDT) Pathologist [facility] Hep C Antibody Negative Negative 12/22/2021 10:17 EDT [facility] Blood VENOUS BLOOD / Unknown 12/21/2021 8:11 EDT 12/21/2021 17:19 EDT Provider Outr Resulting Lab CHEMISTRY & BLOOD GAS ORDERABLES [facility] [address] [place] [address] from Last 3 Months or Most Recently Relevant to Health Maintenance Saleem Payan Personal/Family Self [address] [facility] [address] [place] [address] Saleem Payan Personal/Family Self [address] [facility] [address] [place] [address] Saleem Payan Personal/Family Self [address] [facility] [address] [place] [address] Saleem Payan Personal/Family Self [address] [facility] [address] [place] [address] Saleem Payan Personal/Family Self 1945 [facility] [address] [place] [address] Saleem Payan Personal/Family Self [address] [facility] [address] [place] [address] Saleem Payan Personal/Family Self [address] [facility] [address] [place] [address] Care Teams Advisor To Command In Combat Relationship Specialty Start Date End Date Unknown, Provider, PCP - General 12/05/23
--- OUTSIDE RECORDS SUMMARY | 2024-01-02 20:28 | XMS_ITS | Encounter Summary ---
[place] [address] Care Team Providers Care Woodworking Machine Setter Name Role Phone Unavailable Primary Care Provider Unavailabl e Reason for Referral * Diagnostic Test (Routine) - Pending Review Specialty Diagnoses / Procedures Referred By Naldo brown Referred To Contact Cardiology Diagnoses CHF (congestive heart failure), NYHA class I, unspecified failure chronicity, combined Procedures Mobile Trace Roberson MD [address] [place] [address] [place] [address] [facility] [place] [address] Referral ID Status Reason Start Date Expiration Date Visits Requested Visits Authorized [id number] Pending Review Specialty Service Requested 12/25/2023 12/24/2024 1 1 Reason for Visit * Diagnostic Test (Routine) - Pending Review Specialty Diagnoses / Procedures Referred By Naldo brown Referred To Contact Cardiology Diagnoses CHF (congestive heart failure), NYHA class I, unspecified failure chronicity, combined Procedures Mobile Trace Roberson MD [address] [place] [address] [place] [address] [facility] [place] [address] Referral ID Status Reason Start Date Expiration Date Visits Requested Visits Authorized [id number] Pending Review Specialty Service Requested 12/25/2023 12/24/2024 1 1 Encounter Details Date Type Department Care Team (Latest Contact Info) Description 12/25/2023 11:41 AM EDT - 12/25/2023 11:59 PM EDT Hospital Encounter Mobile [place] [address] rTace Godoy MD [address] [place] [address] [place] [address] CHF (congestive heart failure), NYHA class I, unspecified failure chronicity, combined Discharge Disposition: Home Social History Tobacco Use Types Packs/Day Years Used Date Smoking Tobacco: Never Assessed Sex and Gender Information Value Date Recorded Sex Assigned at Not on file Gender Identity Not on file Sexual Orientation Not on file documented as of this encounter Plan of Treatment Not on file documented as of this encounter Procedures Procedure Name Priority Date/Time Associated Diagnosis Comments ECHO COMPLETE Routine 12/25/2023 12:22 PM EDT CHF (congestive heart failure), NYHA class I, unspecified failure chronicity, combined documented in this encounter Results * ECHO COMPLETE (12/25/2023 12:22 PM EDT) EF 51 [facility] SYSTEM Anatomical Region Laterality Modality Other 12/25/2023 8:38 AM EDT Narrative 12/25/2023 1:54 PM EDT [address] [place] [address] ? Echocardiogram Report Name: CELESTINO YOUNG ?Study Date: 12/25/2023 08:38 AM ? BP: 112/63 mmHg ? Patient Location: [facility] ICU : 1945 ? Height: 158 cm ?Account: [id number] Age: 78 yrs ? Weight: 88 kg Gender: Male ?BSA: 1.9 m2 Ordering Physician: TRACE GODOY Referring Physician: TRACE GODOY Interpretation Summary 1. The left ventricle is normal in size with mildly reduced systolic function in a pattern of global hypokinesis. LVE is 51% by Hernandez's biplane. 2. The right ventricle is normal in size and function. PASP is elevated, estimated at 51 mmHg plus right atrial pressure (range 54-66 mmHg). 3. The left atrium is mildly dilated. The right atrium is normal in size. 4. Mild to moderate tricuspid and mitral regurgitation. 5. See body of report for additional details. No prior study available for comparison. Procedure Complete-[id number]. This study is limited because the patient was unable to turn. Left Ventricle Left ventricle is of normal size. Wall thickness is normal. There is no ventricular septal defect. Left ventricular systolic function is mildly reduced. The left ventricular ejection fraction is 51% by Hernandez's biplane. There are no segmental wall motion abnormalities. Right Ventricle The right ventricle is of normal size. Right ventricular systolic function is normal. Left Atrium The left atrium is mildly dilated. There is no evidence for a patent foramen ovale. Right Atrium The right atrium is normal. Aortic Valve The aortic valve is structurally normal. The aortic valve is tricuspid. There is no aortic stenosis. There is no aortic regurgitation. Mitral Valve The mitral valve is structurally normal. There is no mitral stenosis. There is mild to moderate mitral regurgitation. Tricuspid Valve The tricuspid valve is structurally normal. There is no tricuspid stenosis. There is mild to moderate tricuspid regurgitation. Pulmonic Valve The pulmonic valve appears to be structurally normal. There is no valvular pulmonic stenosis. There is mild pulmonic valve regurgitation. Great Arteries The diameter at the level of the sinuses of Valsalva is 3.3 cm. The maximum diameter of the proximal ascending aorta is 3.4 cm. Venous Inferior vena cava is not well visualized. Pericardium/Pleural There is a small pericardial effusion. The pericardial effusion is posterior. Hemodynamics The peak right ventricular systolic pressure is 51 mmHg. Plus RA presssure. There is Grade II LV diastolic dysfunction (abnormal relaxation with elevated left ventricular filling pressure). ? 2D Measurements ? Volumes ?IVSd: 1.0 cm ? LA Volume Index: ?LVIDd: 5.5 cm ?35.1 ml/m2 ?LVIDs: 4.0 cm ?SV(LVOT): 71.9 ml ?LVPWd: 0.99 cm ? LV Stroke Volume: 71.9 ml ?RWT: 0.36 {ratio} ?SI(LVOT): 38.0 ml/m2 ?LV mass(C)d: 214.0 grams ?LV mass(C)dI: 113.2 grams/m2 ?Ao root diam: 3.3 cm ?Ao root diam index: 1.7 ?asc Aorta Diam: 3.4 cm ?LVOT diam: 2.0 cm ?TAPSE_phl: 2.0 cm Doppler ?3D/Strain/TomTec LV V1 VTI: 23.1 cm ?LV GLS (S3P): -11.9 % LVOT max Velocity: 133.1 cm/sec Ao V2 VTI: 33.4 cm Ao Max: 171.7 cm/sec Ao valve max: 11.8 mmHg Ao valve mean: 7.3 mmHg MV E max sharath: 96.5 cm/sec MV A max sharath: 95.3 cm/sec MV E/A: 1.0 MV dec time: 0.18 sec MV mean P.1 mmHg Lat Peak E' Sharath: 7.7 cm/sec E/e' (lat): 12.6 Med Peak E' Sharath: 7.2 cm/sec E/e' (med): 13.4 E/e' Average: 13.0 ALVAREZ(I,D): 2.2 cm2 Dimensionless index Aov: 0.69 TR max sharath: 339.7 cm/sec I ?WMSI = 2.00 ? % Normal = 0 ?Segments ??Size X - Cannot ?? 1 - Normal ?? 2 - ? 3 - Akinetic 4 - ?1-2 ? small Interpret ? Hypokinetic ?Dyskinetic ?? 3-5 ? moderate 5 - ? 6-14 ?large Aneurysmal ?15-16 ?? diffuse Procedure Note Kadi Smith MD - 12/25/[address] [place] [address] Echocardiogram Report Name: CELESTINO YOUNG Study Date: 12/25/2023 08:38 AM BP: 112/63mmHg Patient Location: [facility] ICU : 1945 Height: 158 cm Account:[id number] Age: 78 yrs Weight: 88 kg Gender: Male BSA: 1.9 m2 Ordering Physician: TRACE GODOY Referring Physician: TRACE GODOY Interpretation Summary 1. The left ventricle is normal in size with mildly reduced systolicfunction in a pattern of global hypokinesis. LVE is 51% by Hernandez's biplane. 2. The right ventricle is normal in size and function. PASP is elevated,estimated at 51 mmHg plus right atrial pressure (range 54-66 mmHg). 3. The left atrium is mildly dilated. The right atrium is normal insize. 4. Mild to moderate tricuspid and mitral regurgitation. 5. See body of report for additional details. No prior study availablefor comparison. Procedure Complete-[id number]. This study is limited because the patient was unable toturn. Left Ventricle Left ventricle is of normal size. Wall thickness is normal. There is no ventricular septal defect. Left ventricular systolic function is mildlyreduced. The left ventricular ejection fraction is 51% by Hernandez's biplane. Thereare no segmental wall motion abnormalities. Right Ventricle The right ventricle is of normal size. Right ventricular systolic functionis normal. Left Atrium The left atrium is mildly dilated. There is no evidence for a patentforamen ovale. Right Atrium The right atrium is normal. Aortic Valve The aortic valve is structurally normal. The aortic valve is tricuspid.There is no aortic stenosis. There is no aortic regurgitation. Mitral Valve The mitral valve is structurally normal. There is no mitral stenosis.There is mild to moderate mitral regurgitation. Tricuspid Valve The tricuspid valve is structurally normal. There is no tricuspidstenosis. There is mild to moderate tricuspid regurgitation. Pulmonic Valve The pulmonic valve appears to be structurally normal. There is novalvular pulmonic stenosis. There is mild pulmonic valve regurgitation. Great Arteries The diameter at the level of the sinuses of Valsalva is 3.3 cm. Themaximum diameter of the proximal ascending aorta is 3.4 cm. Venous Inferior vena cava is not well visualized. Pericardium/Pleural There is a small pericardial effusion. The pericardial effusion isposterior. Hemodynamics The peak right ventricular systolic pressure is 51 mmHg. Plus RApresssure. There is Grade II LV diastolic dysfunction (abnormal relaxation with elevatedleft ventricular filling pressure). 2D Measurements Volumes IVSd: 1.0 cm LA VolumeIndex: LVIDd: 5.5 cm 35.1 ml/m2 LVIDs: 4.0 cm SV(LVOT): 71.9ml LVPWd: 0.99 cm LV Stroke Volume:71.9 ml RWT: 0.36 {ratio} SI(LVOT): 38.0ml/m2 LV mass(C)d: 214.0 grams LV mass(C)dI: 113.2 grams/m2 Ao root diam: 3.3 cm Ao root diam index: 1.7 asc Aorta Diam: 3.4 cm LVOT diam: 2.0 cm TAPSE_phl: 2.0 cm Doppler 3D/Strain/TomTec LV V1 VTI: 23.1 cm LV GLS (S3P): -11.9 % LVOT max Velocity: 133.1 cm/sec Ao V2 VTI: 33.4 cm Ao Max: 171.7 cm/sec Ao valve max: 11.8 mmHg Ao valve mean: 7.3 mmHg MV E max sharath: 96.5 cm/sec MV A max sharath: 95.3 cm/sec MV E/A: 1.0 MV dec time: 0.18 sec MV mean P.1 mmHg Lat Peak E' Sharath: 7.7 cm/sec E/e' (lat): 12.6 Med Peak E' Sharath: 7.2 cm/sec E/e' (med): 13.4 E/e' Average: 13.0 ALVAREZ(I,D): 2.2 cm2 Dimensionless index Aov: 0.69 TR max sharath: 339.7 cm/sec I WMSI = 2.00 % Normal = 0 SegmentsSize X - Cannot 1 - Normal 2 - 3 - Akinetic 4 - 1-2small Interpret Hypokinetic Dyskinetic 3-5moderate 5 - 6-14large Aneurysmal 15-16diffuse Trace Godoy MD ECHO ORDERABLES documented in this encounter Visit Diagnoses Diagnosis CHF (congestive heart failure), NYHA class I, unspecified failure chronicity, combined documented in this encounter
--- OUTSIDE RECORDS SUMMARY | 2024-01-02 20:28 | XMS_ITS | Encounter Summary ---
Author Organization [facility] Address [address] [place] [address] Care Team Providers Care Drier And Evaporator Operator Name Role Phone Unknown, Provider Primary Care Provider Encounter Details Date Type Department Care Team (Late st Contact Info) Description 12/27/2023 Lab Requisition [facility] Pathology & Laboratory Medicine - [address] [address] Outr Resulting Lab, Provider Social History Tobacco [...] Procedure Name Priority Date/Time Associated Diagnosis Comments HAPTOGLOBIN Routine 12/27/2023 6:08 EDT documented in this encounter Results * (ABNORMAL) HAPTOGLOBIN (12/27/2023 6:08 EDT) Haptoglobin 246(H) 32 - 197 mg/dL 12/30/2023 10:08 EDT [facility] Blood VENOUS BLOOD / Unknown 12/27/2023 6:08 EDT 12/27/2023 17:13 EDT Provider Outr Resulting Lab CHEMISTRY & BLOOD GAS ORDERABLES [facility] [address] [place] [address] documented in this encounter Visit Diagnoses Not on filedocumented in this encounter Care Teams Drier And Evaporator Operator Relationship Specialty Start Date End Date Unknown, Provider, PCP - General 12/05/23 documented as of this encounter
--- OUTSIDE RECORDS SUMMARY | 2024-01-02 20:28 | XMS_ITS | Encounter Summary ---
Author Organization [facility] Address [address] [place] [address] Care Team Providers Care Fat Pressroom Worker Name Role Phone Unknown, Provider Primary Care Provider Encounter Details Date Type Department Care Team (Late st Contact Info) Description 01/18/2020 Lab Requisition [facility] Pathology & Laboratory Medicine - [address] [address] Outr Resulting Lab, Provider Social History Tobacco [...] on filedocumented in this encounter Care Teams Fat Pressroom Worker Relationship Specialty Start Date End Date Unknown, Provider, PCP - General 12/05/23 documented as of this encounter
--- OUTSIDE RECORDS SUMMARY | 2024-01-02 20:28 | XMS_ITS | Encounter Summary ---
Author Organization [facility] Address [address] [place] [address] Care Team Providers Care Key Account Representative Name Role Phone Unknown, Provider Primary Care Provider [phone] Encounter Details Date Type Department Care Team (Late st Contact Info) Description 12/25/2023 Lab Requisition [facility] Pathology & Laboratory Medicine - [address] [address] Outr Resulting Lab, Provider Social History Tobacco [...] Procedure Name Priority Date/Time Associated Diagnosis Comments PSA TOTAL, DIAGNOSTIC Routine 12/25/2023 2:20 EDT documented in this encounter Results * PSA TOTAL, DIAGNOSTIC (12/25/2023 2:20 EDT) PSA 3.9 <=6.5 ng/mL 12/25/2023 18:56 EDT [facility] Blood VENOUS BLOOD / Unknown 12/25/2023 2:20 EDT 12/25/2023 17:26 EDT Narrative [facility] - 12/25/2023 18:56 EDT NOTE: Serum PSA concentration should not be interpreted as absolute evidence for the presence or absence of malignant disease. Assayed on Siemens ADVIA Coworksaur XPT using chemiluminescent technology.??Values obtained by using different assay methods cannot be used interchangeably. Provider Outr Resulting Lab CHEMISTRY & BLOOD GAS ORDERABLES [facility] [address] [place] [address] documented in this encounter Visit Diagnoses Not on filedocumented in this encounter Care Teams Key Account Representative Relationship Specialty Start Date End Date Unknown, Provider, PCP - General 12/05/23 documented as of this encounter
--- OUTSIDE RECORDS SUMMARY | 2024-01-02 20:28 | XMS_ITS | Encounter Summary ---
Author Organization [facility] Address [address] [place] [address] Care Team Providers Care Evp Business Development Name Role Phone Unknown, Provider Primary Care Provider [phone] Encounter Details Date Type Department Care Team (Late st Contact Info) Description 12/21/2021 Lab Requisition [facility] Pathology & Laboratory Medicine - [address] [address] Outr Resulting Lab, Provider Social History Tobacco [...] C Antibody Negative Negative 12/22/2021 10:17 EDT [facility] Blood VENOUS BLOOD / Unknown 12/21/2021 8:11 EDT 12/21/2021 17:19 EDT Provider Outr Resulting Lab CHEMISTRY & BLOOD GAS ORDERABLES [facility] [address] [place] [address] documented in this encounter Visit Diagnoses Not on filedocumented in this encounter Care Teams Evp Business Development Relationship Specialty Start Date End Date Unknown, Provider, PCP - General 12/05/23 documented as of this encounter
--- OUTSIDE RECORDS SUMMARY | 2024-01-02 20:28 | XMS_ITS | Encounter Summary ---
Author Organization [facility] Address [facility] [place] [address] Care Team Providers Care Foam Rubber Curer Name Role Phone Unavailable Primary Care Provider Unavailabl e Encounter Details Date Type Department Care Team (Late st Contact Info) Description 12/14/2021 Interpretation Only [facility] [address] [place] [id number] Arielle Flores APRN [address] [facility] [address] [place], [place] [id number] Social History Tobacco Use Types Packs/Day Years [...] O RAD ADMITDTTM RAD PT RAD INFO [id number]^NE WTON^MOI H RAD EXAM DESC [id number]^XR LEFT [...] who have questions please contact the health career services officer that requested your imaging first. ? Electronically signed by: Elliott Parry MD, [facility] ([phone]), at 12/14/2021 1:12 PM Narrative 12/14/2021 1:12 [...] patients who have questions please contactthe health career services officer that requested your imaging first. Electronically signed by: Elliott Parry MD, [facility]([phone]), at 12/14/2021 1:12 PM Arielle Flores APRN IMG DX ORDERABLES documented in this encounter Visit Diagnoses Not on filedocumented in this encounter
--- OUTSIDE RECORDS SUMMARY | 2024-01-02 20:28 | XMS_ITS | Encounter Summary ---
Author Organization [facility] Address [address] [place] [address] Care Team Providers Care Shape Brick Molder Name Role Phone Unknown, Provider Primary Care Provider Encounter Details Date Type Department Care Team (Late st Contact Info) Description 03/07/20[address] Lab Re[address] [facility] Pathology & Laboratory Medicine - [address] [address] Outr Resulting Lab, Provider Social History Tobacco [...] 0.5 - 2.5 % 03/07/2023 17:30 EDT [facility] Blood VENOUS BLOOD / Unknown 03/06/2023 10:45 EDT 03/07/2023 17:13 EDT Provider Outr Resulting Lab HEMATOLOGY & PF4 ORDERABLES [facility] [address] [place] [address] documented in this encounter Visit Diagnoses Not on filedocumented in this encounter Care Teams Shape Brick Molder Relationship Specialty Start Date End Date Unknown, Provider, PCP - General 12/05/23 documented as of this encounter
--- OUTSIDE RECORDS SUMMARY | 2024-01-02 20:28 | XMS_ITS | Clinical Summary ---
Author Organization [facility] Address [facility] [place] [address] Care Team Providers Care Admissions Specialist Name Role Phone Unavailable Primary Care Provider Unavailabl e Encounters Date Type Department Care Team Description 12/25/2023 11:41 AM EDT - 12/25/2023 11:59 PM EDT Hospital Encounter [place] [address] Trace Godoy MD CHF (congestive heart failure), NYHA class I, unspecified failure chronicity, combined Discharge Disposition: Home from Last 3 Months Social History Tobacco [...] of 1 - PCV) 12/12/2011 Covid-19 Vaccine ( - 2022- season) 2023 Influenza (Flu) vaccine (1 o f 1 - Influenza standard series) 01/05/2024 Procedures Procedure Name Priority Date/Time Associated Diagnosis Comments ECHO COMPLETE Routine 12/25/2023 12:22 PM EDT CHF (congestive heart failure), NYHA class I, unspecified failure chronicity, combined from Last 3 Months Results * ECHO COMPLETE (12/25/2023 12:22 PM EDT) EF 51 [facility] Anatomical Region Laterality Modality Other 12/25/2023 8:38 AM EDT Narrative 12/25/2023 1:54 PM EDT 1 [place] [address] ? Echocardiogram Report Name: YOUNGSARAHAN ?Study Date: 12/25/2023 08:38 AM ? BP: 112/63 mmHg ? Patient Location: [facility] ICU : 1945 ? Height: 158 cm ?Account: [id number] Age: 78 yrs ? Weight: 88 kg [...] No prior study available for comparison. Procedure Complete-08248. This study is limited because the patient [...] Procedure Note Kadi Smith MD - 12/25/2023 1 [place] [address] Echocardiogram Report Name: CELESTINO YOUNG Study Date: 12/25/2023 08:38 AM BP: 112/63mmHg Patient Location: [facility] ICU : 1945 Height: 158 cm Account:[id number] Age: 78 yrs Weight: 88 kg Gender: [...] details. No prior study availablefor comparison. Procedure Complete-[id number]. This study is limited because the patient [...] Aneurysmal 15-16diffuse Trace Godoy MD ECHO ORDERABLES from Last 3 Months
--- OUTSIDE RECORDS SUMMARY | 2024-01-02 20:28 | XMS_ITS | Encounter Summary ---
Author Organization [facility] Address [address] [place] [address] Care Team Providers Care Make Up Artist Name Role Phone Unknown, Provider Primary Care Provider [phone] Encounter Details Date Type Department Care Team (Latest Contact Info) Description 12/28/2023 Lab Requisition [facility] Pathology & Laboratory Medicine - Main [address] [address] Isreal Hernández MD [address] [place] [address], [address] [place], [place] [id number] Acute posthemorrhagic anemia Social History Tobacco Use Types Packs/Day Years [...] 12/27/2023 14 :01 EDT Acute posthemorrhagic anemia documented in this encounter Results * SURGICAL PATHOLOGY (12/27/2023 14:01 EDT) Note to Patient The following pathology results have been interpreted by your pathologist and may be available to you before your health provider has had the opportunity to review them. Please allow time for your provider to receive these results and explore management options, if applicable. 12/31/2023 13:59 EDT [facility] Final Diagnosis A. RECTUM, POLYP, BIOPSY: - Tubular adenoma. 12/31/2023 13:59 EDT [facility] Attestation By the signature below, the attending physician certifies that they have 1) personally conducted a gross and/or microscopic examination of the described specimen(s), and/or personally interpreted the results of laboratory testing of the described specimen(s), and 2) personally rendered or confirmed the above diagnosis. 12/31/2023 13:59 EDT [facility] at 1359 Clinical History Anemia 12/31/2023 13:59 EDT [facility] Gross Description A. Received in formalin labelled with proper patient identification (initials P, N) and rectal polyp is a mcmillan tissue fragment, 0.3 x 0.2 x 0.1 cm. Entirely submitted in A1. SAVANNAH PALOMINO(ASCP) 12/30/2023 7:58 12/31/2023 13:59 EDT [facility] Performing Lab [facility] 12/31/2023 13:59 EDT [facility] Scanned Images 12/31/2023 13:59 T [facility] Tissue SPECIMEN FROM RECTUM / Unknown 12/27/2023 14:01 EDT 12/28/2023 14:41 EDT Isreal Hernández MD PATHOLOGY ORDERABLES [facility] [address] [place], [place] [address] documented in this encounter Visit Diagnoses Diagnosis Acute posthemorrhagic anemia documented in this encounter Care Teams Make Up Artist Relationship Specialty Start Date End Date Unknown, Provider, PCP - General 12/05/23 documented as of this encounter
== END 2024-01-02 20:27 | disposition home or self-care (01) ==
LOC: LBN 20:26
PROVIDERS: PCP Nurse Practitioner Family; Visit Provider Nurse Practitioner Gerontology
DX: K57.90 Diverticulosis of intestine, part unspecified, without perforation or abscess without bleeding (principal); D62 Acute posthemorrhagic anemia
CPT/HCPCS: 80053; 85025

== ENCOUNTER 2024-01-09 21:26 | Outpatient (REF) | payer SELFPAY ==
[2024-01-09 20:52] LABS: Abs Immature Grans 0.15 10^3/uL (0.0-0.06); Absolute Basophil Count 0.09 10^3/uL (0.0-0.2); Absolute Eosinophil Count 0.28 10^3/uL (0.0-0.7); Absolute Lymphocyte Count 1.36 10^3/uL (1.2-3.4); Absolute Monocyte Count 0.72 10^3/uL (0.1-0.8); Absolute Neutrophil Count 5.58 10^3/uL (1.2-6.7); Basophils % 1.1 %; Eosinophils % 3.4 %; HCT 43.1 % (40.0-50.0); HGB 12.7 g/dL (13.5-17.5); Immature Grans % 1.8 %; Lymphocytes % 16.6 %; MCH 26.6 pg (27.0-33.0); MCHC 29.5 % (32.0-36.0); MCV 90 fL (80-95); Monocytes % 8.8 %; Neutrophils % 68.3 %; RBC 4.77 10^6/uL (4.36-5.78); RDW 27.5 % (11.8-14.1); RDW-SD 90.9 fL; WBC 8.18 10^3/uL (4.4-10.8)
--- OUTSIDE RECORDS SUMMARY | 2024-01-09 21:28 | XMS_ITS | Encounter Summary ---
Author Organization [facility] Address [address] [place] [address] Care Team Providers Care Reworker Name Role Phone Unknown, Provider Primary Care Provider Encounter Details Date Type Department Care Team (Late st Contact Info) Description 03/07/2023 Lab Requisition [facility] Pathology & Laboratory Medicine - [address] [address] Outr Resulting Lab, Provider Social History Tobacco [...] 17:30 EDT [facility] Blood VENOUS BLOOD / Unknown 03/06/2023 10:45 EDT 03/07/2023 17:13 EDT Provider Outr Resulting Lab HEMATOLOGY & PF4 ORDERABLES [facility] [address] [place] [address] documented in this encounter Visit Diagnoses Not on filedocumented in this encounter Care Teams Reworker Relationship Specialty Start Date End Date Unknown, Provider, PCP - General 12/05/23 documented as of this encounter
--- OUTSIDE RECORDS SUMMARY | 2024-01-09 21:28 | XMS_ITS | Encounter Summary ---
Author Organization [facility] Address [address] [place] [address] Care Team Providers Care Heel Sprayer Name Role Phone Unknown, Provider Primary Care Provider Encounter Details Date Type Department Care Team (Latest Contact Info) Description 12/28/2023 Lab Requisition [facility] Pathology & Laboratory Medicine - Main [address] [address] Isreal Hernández MD [address] [place] [address], [address] [place], [place] [id number] Acute posthemorrhagic anemia Social History Tobacco Use [...] management options, if applicable. 12/31/2023 13:59 EDT [facility] Final Diagnosis A. RECTUM, POLYP, BIOPSY: - Tubular adenoma. 12/31/2023 13:59 EDT [facility] Attestation By the signature below, the attending physician certifies that they have 1) personally conducted a gross and/or microscopic examination of the described specimen(s), and/or personally interpreted the results of laboratory testing of the described specimen(s), and 2) personally rendered or confirmed the above diagnosis. 12/31/2023 13:59 EDT [facility] at 1359 Clinical History Anemia 12/31/2023 13:59 EDT [facility] Gross Description A. Received in formalin labelled with proper patient identification (initials P, N) and rectal polyp is a mcmillan tissue fragment, 0.3 x 0.2 x 0.1 cm. Entirely submitted in A1. SAVANNAH PALOMINO(ASCP) 12/30/2023 7:58 12/31/2023 13:59 EDT [facility] Performing Lab [facility] 12/31/2023 13:59 EDT [facility] Scanned Images 12/31/2023 13:59 T [facility] Tissue SPECIMEN FROM RECTUM / Unknown 12/27/2023 14:01 EDT 12/28/2023 14:41 EDT Isreal Hernández MD PATHOLOGY ORDERABLES [facility] [address] [place], [place] [address] documented in this encounter Visit Diagnoses Diagnosis Acute posthemorrhagic anemia documented in this encounter Care Teams Heel Sprayer Relationship Specialty Start Date End Date Unknown, Provider, PCP - General 12/05/23 documented as of this encounter
--- OUTSIDE RECORDS SUMMARY | 2024-01-09 21:28 | XMS_ITS | Encounter Summary ---
Author Organization [facility] Address [address] [place] [address] Care Team Providers Care Hat Forming Machine Operator Name Role Phone Unknown, Provider Primary Care Provider Encounter Details Date Type Department Care Team (Late st Contact Info) Description 01/18/2020 Lab Requisition [facility] Pathology & Laboratory Medicine - [address] [address] Outr Resulting Lab, Provider Social History Tobacco [...] on filedocumented in this encounter Care Teams Hat Forming Machine Operator Relationship Specialty Start Date End Date Unknown, Provider, PCP - General 12/05/23 documented as of this encounter
--- OUTSIDE RECORDS SUMMARY | 2024-01-09 21:28 | XMS_ITS | Encounter Summary ---
Author Organization [facility] Address [address] [place] [address] Care Team Providers Care Medical Accounts Receivable Specialist Name Role Phone Unknown, Provider Primary Care Provider Encounter Details Date Type Department Care Team (Late st Contact Info) Description 12/21/2021 Lab Requisition [facility] Pathology & Laboratory Medicine - [address] [address] Outr Resulting Lab, Provider Social History Tobacco [...] C Antibody Negative Negative 12/22/2021 10:17 EDT [facility] Blood VENOUS BLOOD / Unknown 12/21/2021 8:11 EDT 12/21/2021 17:19 EDT Provider Outr Resulting Lab CHEMISTRY & BLOOD GAS ORDERABLES [facility] [address] [place] [address] documented in this encounter Visit Diagnoses Not on filedocumented in this encounter Care Teams Medical Accounts Receivable Specialist Relationship Specialty Start Date End Date Unknown, Provider, PCP - General 12/05/23 documented as of this encounter
--- OUTSIDE RECORDS SUMMARY | 2024-01-09 21:28 | XMS_ITS | Clinical Summary ---
Author Organization [facility] Address [facility] [place] [address] Care Team Providers Care Staff Command And Control Officer Name Role Phone Unavailable Primary Care Provider Unavailabl e Encounters Date Type Department Care Team Description 12/25/2023 11:41 AM EDT - 12/25/2023 11:59 PM EDT Hospital Encounter Mobile [place] [address] Trace Godoy MD CHF (congestive heart failure), [...] - PCV) 12/12/2011 Covid-19 Vaccine ( - season) 2024 Influenza (Flu) vaccine (1 o f 1 [...] EDT Narrative 12/25/2023 1:54 PM EDT 1 [place] [address] ? Echocardiogram Report Name: YOUNGSARAHAN ?Study Date: 12/25/2023 08:38 AM ? BP: 112/63 mmHg ? Patient Location: [facility] ICU : 1945 ? Height: 158 cm ?Account: [id number] Age: 78 yrs ? Weight: 88 kg [...] No prior study available for comparison. Procedure Complete-[id number]. This study is limited because the patient [...] Note Kadi Smith MD - 12/25/2023 1 [place] [address] Echocardiogram Report Name: CELESTINO YOUNG Study Date: 12/25/2023 08:38 AM BP: 112/63mmHg Patient Location: [facility] ICU : 1945 Height: 158 cm Account:[id number] Age: 78 yrs Weight: 88 kg Gender: [...] details. No prior study availablefor comparison. Procedure Complete-[id number]. This study is limited because the patient [...]
--- OUTSIDE RECORDS SUMMARY | 2024-01-09 21:28 | XMS_ITS | Encounter Summary ---
Author Organization [facility] Address [address] [place] [address] Care Team Providers Care Insurance Claims Adjuster Name Role Phone Unknown, Provider Primary Care Provider Encounter Details Date Type Department Care Team (Late st Contact Info) Description 12/27/2023 Lab Requisition [facility] Pathology & Laboratory Medicine - [address] [address] Outr Resulting Lab, Provider Social History Tobacco [...] 32 - 197 mg/dL 12/30/2023 10:[address] [facility] Blood VENOUS BLOOD / Unknown 12/27/2023 6:08 EDT 12/27/2023 17:13 EDT Provider Outr Resulting Lab CHEMISTRY & BLOOD GAS ORDERABLES [facility] [address] [place] [address] documented in this encounter Visit Diagnoses Not on filedocumented in this encounter Care Teams Insurance Claims Adjuster Relationship Specialty Start Date End Date Unknown, Provider, PCP - General 12/05/23 documented as of this encounter
--- OUTSIDE RECORDS SUMMARY | 2024-01-09 21:28 | XMS_ITS | Clinical Summary ---
Author Organization [facility] Address [address] [place] [address] Care Team Providers Care Children'S Librarian Name Role Phone Unknown, Provider Primary Care Provider Encounters Date Type Department Care Team Description 12/28/2023 Lab Requisition [facility] Pathology & Laboratory [address] [address] Isreal Hernández MD Acute posthemorrhagic anemia 12/27/2023 Lab Requisition [facility] Pathology & Laboratory [address] [address] Outr Resulting Lab, Provider 12/25/2023 Lab Requisition [facility] Pathology & Laboratory [address] [address] Outr Resulting Lab, Provider from Last 3 [...] 2006 Fall Risk Screening 12/12/2011 COVID-19 Vaccine ( season) 2024 Hepatitis C Screen Completed 12/21/2021 Procedures Procedure [...] explore management options, if applicable. 12/31/2023 13:59 [facility] Final Diagnosis A. RECTUM, POLYP, BIOPSY: - Tubular adenoma. 12/31/2023 13:59 [facility] Attestation By the signature below, the attending physician certifies that they have 1) personally conducted a gross and/or microscopic examination of the described specimen(s), and/or personally interpreted the results of laboratory testing of the described specimen(s), and 2) personally rendered or confirmed the above diagnosis. 12/31/2023 13:59 [facility] at 1359 Clinical History Anemia 12/31/2023 13:59 [facility] Gross Description A. Received in formalin labelled with proper patient identification (initials P, N) and rectal polyp is a mcmillan tissue fragment, 0.3 x 0.2 x 0.1 cm. Entirely submitted in A1. SAVANNAH PALOMINO(ASCP) 12/30/2023 7:58 12/31/2023 13:59 [facility] Performing Lab [facility] 12/31/2023 13:59 [facility] Scanned Images 12/31/2023 13:59 [facility] Tissue SPECIMEN FROM RECTUM / Unknown 12/27/2023 14:01 EDT 12/28/2023 14:41 EDT Isreal Hernández MD PATHOLOGY ORDERABLES Performing Organization Address City/[facility]/ZIP Co de Phone Number [facility] [address] [place] [address] * (ABNORMAL) HAPTOGLOBIN (12/27/2023 6:08 EDT) Pathologist [facility] Haptoglobin 246(H) 32 - 197 mg/dL 12/30/2023 10:08 EDT [facility] Blood VENOUS BLOOD / Unknown 12/27/2023 6:08 EDT 12/27/2023 17:13 EDT Provider Outr Resulting Lab CHEMISTRY & BLOOD GAS ORDERABLES Performing Organization Address [facility] Co de Phone Number [facility] [address] [place] [address] * PSA TOTAL, DIAGNOSTIC (12/25/2023 2:20 EDT) Pathologist [facility] PSA 3.9 <=6.5 ng/mL 12/25/2023 18:56 EDT [facility] Blood VENOUS BLOOD / Unknown 12/25/2023 2:20 EDT 12/25/2023 17:26 EDT Narrative [facility] - 12/25/2023 18:56 EDT NOTE: Serum PSA concentration should not be interpreted as absolute evidence for the presence or absence of malignant disease. Assayed on Siemens ADVIA Centaur XPT using chemiluminescent technology.??Values obtained by using different assay methods cannot be used interchangeably. Provider Outr Resulting Lab CHEMISTRY & BLOOD GAS ORDERABLES Performing Organization Address City/[facility]/ZIP Co de Phone Number [facility] [address] [place] [address] * HEPATITIS C AB W REFLEX TO HCV RNA BY PCR (12/21/2021 8:11 EDT) Pathologist [facility] Hep C Antibody Negative Negative 12/22/2021 10:17 EDT [facility] Blood VENOUS BLOOD / Unknown 12/21/2021 8:11 EDT 12/21/2021 17:19 EDT Provider Outr Resulting Lab CHEMISTRY & BLOOD GAS ORDERABLES [facility] [address] [place] [address] from Last 3 Months or Most Recently Relevant to Health Maintenance Saleem Payan Personal/Family Self 1945 [facility] [address] [place] [address] Saleem Payan Personal/Family Self 1945 [facility] [address] [place] [address] Saleem Payan Personal/Family Self 1945 [facility] [address] [place] [address] Saleem Payan Personal/Family Self 1945 [facility] [address] [place] [address] Saleem Payan Personal/Family Self 1945 [facility] [address] [place] [address] Saleem Payan Personal/Family Self 1945 [facility] [address] [place] [address] Saleem Payan Personal/Family Self 1945 [facility] [address] [place] [address] Care Teams Children'S Librarian Relationship Specialty Start Date End Date Unknown, Provider, PCP - General 12/05/23
--- OUTSIDE RECORDS SUMMARY | 2024-01-09 21:28 | XMS_ITS | Encounter Summary ---
Author Organization [facility] Address [address] [place] [address] Care Team Providers Care Privacy Officer Name Role Phone Unknown, Provider Primary Care Provider Encounter Details Date Type Department Care Team (Late st Contact Info) Description 12/25/2023 Lab Requisition [facility] Pathology & Laboratory Medicine - [address] [address] Outr Resulting Lab, Provider Social History Tobacco [...] PSA 3.9 <=6.5 ng/mL 12/25/2023 18:56 EDT [facility] Blood VENOUS BLOOD / Unknown 12/25/2023 2:20 EDT 12/25/2023 17:26 EDT Narrative [facility] - 12/25/2023 18:56 EDT NOTE: Serum PSA concentration should not be interpreted as absolute evidence for the presence or absence of malignant disease. Assayed on Siemens ADVIA Million-2-1aur XPT using chemiluminescent technology.??Values obtained by using different assay methods cannot be used interchangeably. Provider Outr Resulting Lab CHEMISTRY & BLOOD GAS ORDERABLES [facility] [address] [place] [id number] documented in this encounter Visit Diagnoses Not on filedocumented in this encounter Care Teams Privacy Officer Relationship Specialty Start Date End Date Unknown, Provider, PCP - General 12/05/23 documented as of this encounter
--- OUTSIDE RECORDS SUMMARY | 2024-01-09 21:28 | XMS_ITS | Referral Summary ---
Author Organization [facility] Address [address] [place] [address] Care Team Providers Care Wad Compressor Operator Adjuster Name Role Phone Unknown, Provider Primary Care Provider Encounters Date Type Department Care Team Description 12/28/2023 Lab Requisition [facility] Pathology & Laboratory [address] [address] Isreal Hernández MD Acute posthemorrhagic anemia 12/27/2023 Lab Requisition [facility] Pathology & Laboratory [address] [address] Outr Resulting Lab, Provider 12/25/2023 Lab Requisition [facility] Pathology & Laboratory [address] [address] Outr Resulting Lab, Provider from Last 3 [...] management options, if applicable. 12/31/2023 13:59 EDT [facility] Final Diagnosis A. RECTUM, POLYP, BIOPSY: - Tubular adenoma. 12/31/2023 13:59 EDT [facility] Attestation By the signature below, the attending physician certifies that they have 1) personally conducted a gross and/or microscopic examination of the described specimen(s), and/or personally interpreted the results of laboratory testing of the described specimen(s), and 2) personally rendered or confirmed the above diagnosis. 12/31/2023 13:59 EDT [facility] at 1359 Clinical History Anemia 12/31/2023 13:59 EDT [facility] Gross Description A. Received in formalin labelled with proper patient identification (initials P, N) and rectal polyp is a mcmillan tissue fragment, 0.3 x 0.2 x 0.1 cm. Entirely submitted in A1. SAVANNAH PALOMINO(ASCP) 12/30/2023 7:58 12/31/2023 13:59 EDT [facility] Performing Lab [facility] 12/31/2023 13:59 EDT [facility] Scanned Images 12/31/2023 13:59 T [facility] Tissue SPECIMEN FROM RECTUM / Unknown 12/27/2023 14:01 EDT 12/28/2023 14:41 EDT Isreal Hernández MD PATHOLOGY ORDERABLES [facility] [address] [place] [address] * (ABNORMAL) HAPTOGLOBIN (12/27/2023 6:08 EDT) Pathologist [facility] Haptoglobin 246(H) 32 - 197 mg/dL 12/30/2023 10:08 EDT [facility] Blood VENOUS BLOOD / Unknown 12/27/2023 6:08 EDT 12/27/2023 17:13 EDT Provider Outr Resulting Lab CHEMISTRY & BLOOD GAS ORDERABLES Performing Organization Address [facility] Co de Phone Number [facility] [address] [place], [place] [address] * PSA TOTAL, DIAGNOSTIC (12/25/2023 2:20 EDT) [facility] PSA 3.9 <=6.5 ng/mL 12/25/2023 18:56 EDT [facility] Blood VENOUS BLOOD / Unknown 12/25/2023 2:20 EDT 12/25/2023 17:26 EDT Narrative [facility] - 12/25/2023 18:56 EDT NOTE: Serum PSA concentration should not be interpreted as absolute evidence for the presence or absence of malignant disease. Assayed on Siemens [employer]istant Bedding[employer] Utility Fundingaur XPT using chemiluminescent technology.??Values obtained by using different assay methods cannot be used interchangeably. Provider Outr Resulting Lab CHEMISTRY & BLOOD GAS ORDERABLES Performing Organization Address [facility] Co de Phone Number [facility] [address] [place] [phone] * HEPATITIS C AB W REFLEX TO HCV RNA BY PCR (12/21/2021 8:11 EDT) [facility] Hep C Antibody Negative Negative 12/22/2021 10:17 EDT [facility] Blood VENOUS BLOOD / Unknown 12/21/2021 8:11 EDT 12/21/2021 17:19 EDT Provider Outr Resulting Lab CHEMISTRY & BLOOD GAS ORDERABLES Performing Organization Address [facility] Co de Phone Number [facility] [address] [place] [address] from Last 3 Months or Most Recently Relevant to Health Maintenance Saleem Payan Personal/Family Self [address] [facility] [address] [place] [address] Saleem Payan Personal/Family Self [address] [facility] [address] [place] [address] Saleem Payan Personal/Family Self [address] [facility] [address] [place] [address] Saleem Payan Personal/Family Self [address] [facility] [address] [place] [address] Saleem Payan Personal/Family Self [address] [facility] [address] [place] [address] Saleem Payan Personal/Family Self [address] [facility] [address] [place] [address] Saleem Payan Personal/Family Self [address] [facility] [address] [place] [address] Care Teams Wad Compressor Operator Adjuster Relationship Specialty Start Date End Date Unknown, Provider, PCP - General 12/05/23
--- OUTSIDE RECORDS SUMMARY | 2024-01-09 21:29 | XMS_ITS | Encounter Summary ---
Author Organization [facility] Address [facility] [place] [address] Care Team Providers Care R D Manager Name Role Phone Unavailable Primary Care Provider Unavailabl e Encounter Details Date Type Department Care Team (Late st Contact Info) Description 12/14/[address] [facility] [address] [place] [phone] Arielle Flores APRN [address] [facility] [address] [place], [place] [phone] Social History Tobacco Use Types Packs/Day Years [...] O RAD ADMITDTTM RAD PT RAD INFO [id number]^NE WTON^MOI H RAD EXAM DESC [id number]^XR LEFT [...] who have questions please contact the health patient care director that requested your imaging first. ? Electronically signed by: Elliott Parry MD, [facility] ([phone]), at 12/14/2021 1:12 PM Narrative 12/14/2021 1:12 [...] patients who have questions please contactthe health patient care director that requested your imaging first. Electronically signed by: Elliott Parry MD, [facility]([phone]), at 12/14/2021 1:12 PM Arielle Flores APRN IMG DX ORDERABLES documented in this encounter Visit Diagnoses Not on filedocumented in this encounter
--- OUTSIDE RECORDS SUMMARY | 2024-01-09 21:29 | XMS_ITS | Encounter Summary ---
Author Organization [place] [address] Care Team Providers Care Nurseryman Assistant Name Role Phone Unavailable Primary Care Provider Unavailabl e Reason for Referral * Diagnostic Test (Routine) - Closed Specialty Diagnoses / Procedures Referred By Naldo t Referred To Contact Cardiology Diagnoses CHF (congestive heart failure), NYHA class I, unspecified failure chronicity, combined Procedures Mobile Trace Roberson MD [address] [place] [address] [place] [address] [facility] [place] [address] Referral ID Status Reason Start Date Expiration Date V isits Requested Visits Authorized [id number] Closed Specialty Service Requested 12/25/2023 12/24/2024 1 1 Reason for Visit * Diagnostic Test (Routine) - Closed Specialty Diagnoses / Procedures Referred By Naldo brown Referred To Contact Cardiology Diagnoses CHF (congestive heart failure), NYHA class I, unspecified failure chronicity, combined Procedures Mobile Trace Roberson MD [address] [place] [address] [place] [address] [facility] [place] [address] Referral ID Status Reason Start Date Expiration Date V isits Requested Visits Authorized [id number] Closed Specialty Service Requested 12/25/2023 12/24/2024 1 1 Encounter Details Date Type Department Care Team (Latest Contact Info) Description 12/25/2023 11:41 AM EDT - 12/25/2023 11:59 PM EDT Hospital Encounter [place] [address] Trace Godoy MD [address] [place] [address] [place] [address] CHF (congestive heart failure), NYHA class I, [...] EDT Narrative 12/25/2023 1:54 PM EDT [address] [place] [address] ? Echocardiogram Report Name: CELESTINO YOUNG ?Study Date: 12/25/2023 08:38 AM ? BP: 112/63 mmHg ? Patient Location: [facility] : 1945 ? Height: 158 cm ?Account: [id number] Age: 78 yrs ? Weight: 88 kg [...] No prior study available for comparison. Procedure Complete-80262. This study is limited because the patient [...] Procedure Note Kadi Smith MD - 12/25/[address] [place] [address] Echocardiogram Report Name: CELESTINO YOUNG Study Date: 12/25/2023 08:38 AM BP: 112/63mmHg Patient Location: [facility] ICU : 1945 Height: 158 cm Account:[id number] Age: 78 yrs Weight: 88 kg Gender: [...] details. No prior study availablefor comparison. Procedure Complete-70396. This study is limited because the patient [...]
[2024-01-09 21:30] LABS: Anisocytosis 2+; Diff Comment RBC Morph Reviewed
== END 2024-01-09 21:27 | disposition home or self-care (01) ==
LOC: LBN 21:26
PROVIDERS: PCP Nurse Practitioner Family; Visit Provider Nurse Practitioner Gerontology
DX: K57.33 Diverticulitis of large intestine without perforation or abscess with bleeding; D62 Acute posthemorrhagic anemia
CPT/HCPCS: 85025

== ENCOUNTER 2024-01-13 08:24 | Outpatient (CLI) | payer MEDICARE, MEDICAID, SELFPAY ==
--- NOTE | 2024-01-13 08:15 | RT.EKG_ITS ---
APPROVED REPORT Exam: Resting ECG Reason for Exam: CHF, mitral insufficiency Patient Location: O HR:106 bpm ECG Measurements Heart Rate 106 AXIS IN 146 P 24 QRSd 102 QRS -9 QT 328 T 16 QTc 436 Conclusion Sinus tachycardia...rate> 99
== END 2024-01-13 08:25 | disposition home or self-care (01) ==
LOC: DI.CARD 08:25
PROVIDERS: PCP Nurse Practitioner Family; Visit Provider Internal Medicine Cardiovascular Disease
DX: I34.0 Nonrheumatic mitral (valve) insufficiency (principal); I50.22 Chronic systolic (congestive) heart failure
CPT/HCPCS: 93010

== ENCOUNTER → 2024-01-13 13:56 | Outpatient (BNVA) | payer MEDICARE, MEDICAID, SELFPAY | PROVIDERS: PCP Nurse Practitioner Family; Referring Provider Nurse Practitioner Family; Visit Provider Internal Medicine Cardiovascular Disease | DX: I21.4 Non-ST elevation (NSTEMI) myocardial infarction (principal); I42.8 Other cardiomyopathies; I34.0 Nonrheumatic mitral (valve) insufficiency; I50.22 Chronic systolic (congestive) heart failure | CPT/HCPCS: 93005; 99214 ==

== ENCOUNTER → 2024-01-15 09:46 | Outpatient (BNVA) | payer MEDICARE, MEDICAID, SELFPAY | PROVIDERS: PCP Nurse Practitioner Family; Referring Provider Nurse Practitioner Family; Visit Provider Internal Medicine | DX: J43.8 Other emphysema (principal); I27.20 Pulmonary hypertension, unspecified; I50.22 Chronic systolic (congestive) heart failure; I21.4 Non-ST elevation (NSTEMI) myocardial infarction; D62 Acute posthemorrhagic anemia; I36.1 Nonrheumatic tricuspid (valve) insufficiency; I34.0 Nonrheumatic mitral (valve) insufficiency; F79 Unspecified intellectual disabilities | CPT/HCPCS: 99215 ==

== ENCOUNTER 2024-01-20 19:21 | Outpatient (REF) | payer SELFPAY ==
[2024-01-20 19:46] LABS: Absolute Basophil Count 0.07 10^3/uL (0.0-0.2); Absolute Eosinophil Count 0.28 10^3/uL (0.0-0.7); Absolute Lymphocyte Count 1.41 10^3/uL (1.2-3.4); Absolute Monocyte Count 0.65 10^3/uL (0.1-0.8); Absolute Neutrophil Count 6.55 10^3/uL (1.2-6.7); Basophils % 0.8 %; Eosinophils % 3.1 %; HCT 41.2 % (40.0-50.0); HGB 12.8 g/dL (13.5-17.5); Immature Grans % 2.2 %; Lymphocytes % 15.4 %; MCH 28.4 pg (27.0-33.0); MCHC 31.1 % (32.0-36.0); MCV 91 fL (80-95); Monocytes % 7.1 %; Neutrophils % 71.4 %; RBC 4.51 10^6/uL (4.36-5.78); RDW 25.4 % (11.8-14.1); WBC 9.16 10^3/uL (4.4-10.8)
[2024-01-20 20:18] LABS: Anisocytosis 1+; Diff Comment RBC Morph Reviewed; Macrocytosis 1+; Platelet Count 175 10^3/uL (130-400)
[2024-01-20 20:19] LABS: Polychromasia Present
== END 2024-01-20 19:22 | disposition home or self-care (01) ==
LOC: LBN 19:21
PROVIDERS: PCP Nurse Practitioner Family; Visit Provider Nurse Practitioner Gerontology
DX: D64.9 Anemia, unspecified (principal)
CPT/HCPCS: 85025

== ENCOUNTER 2024-01-30 02:25 | Outpatient (CLI) | payer MEDICARE, MEDICAID, SELFPAY ==
--- NOTE | 2024-01-30 07:45 | DI.CT_ITS ---
Exam(s) CT CHEST PE CTA EXAM: CT CHEST PE CTA CLINICAL HISTORY: pulmonary hypertension,I27.20. TECHNIQUE: Imaging Protocol: CT angiography of the chest was performed using pulmonary embolus isauro col. Multi planar reconstructions were performed. CONTRAST MATERIAL: Intravenous: Omnipaque 350 Contrast volume: 100 cc COMPARISON: CT CT CHEST PE CTA from 12/28/2023 Modified barium swallow study performed yesterday/. FINDINGS: CHEST: PULMONARY ARTERIES: There are no intraluminal filling defects to suggest acute pulmonary emboli.The d iameter of the main pulmonary arteries are slightly prominent, measuring 2.8 on the right side and 2. 5 on the left side. Probably indicating element of pulmonary arterial hypertension. However, there is no evidence of central nor peripheral pulmonary emboli. LUNGS: There are no infiltrates nor evidence of pulmonary infarction.. There are no pleural effusions . No evidence of aspiration pneumonia at this time, given the fact that this patient apparently exhi bit some aspiration during yesterday's modified barium swallow study. MEDIASTINUM: There is no hilar nor mediastinal adenopathy. Thyroid exhibits normal size. There is a moderate-large retrocardiac hiatal hernia which measures 6 cm wide by 6 cm AP by 6 cm craniocaudal. The esophagus above this level is not significantly dilated nor filled with secretions. CARDIAC: There is cardiomegaly. No pericardial effusion. Sending thoracic aorta exhibits upper norm al diameter.However, the proximal descending thoracic aorta is enlarged, measuring 3.8 cm diameter. This tapers to normal diameter just below this level and there is no evidence of dissection. There i s no significant reflux of contrast into the IVC. There is no significant shift of the interventricu lar septum. PARTIALLY VISUALIZED UPPERMOST ABDOMEN: Liver is enlarged and hypodense-steatotic. Spleen size is mi ld-moderately enlarged, measuring 14 cm craniocaudal. No adrenal masses. OSSEOUS: No fractures. No significant osseous lesions.. IMPRESSION: 1. No evidence of acute pulmonary emboli. No evidence of pulmonary infarction.No evidence of aspirat ion pneumonia in this patient to had some aspiration demonstrated during modified barium swallow stud y performed yesterday. 2. Mild prominence in size of the main pulmonary arteries indicative of an element of pulmonary arter y hypertension. 3. 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 No evidence of dissection. There is no significant dilatation of the ascending thoracic aorta. There is cardiomegaly but no evidence of pericardial effusion. No significant shift of the intervent ricular septum 4. Hepatomegaly/hepatic steatosis/splenomegaly. RADIATION DOSE DELIVERED: 216.44mGy.cm Total DLP DATA REPOSITORY: All CT scans at this facility are submitted to the National Radiology Data Registry (NRDR) Dose Index Registry (DIR) with the [employer] (ACR). RADIATION OPTIMIZATION: All CT scans at this facility use at least one of these dose optimization te chniques: automated exposure control; mA and/or kV adjustment per patient size (includes targeted exa ms where dose is matched to clinical indication); or iterative reconstruction.
[2024-01-30] MEDS: Normal Saline - Diluent 50 ML VIAL IJ (15:30)
[2024-01-30] MEDS: Omnipaque 350 MG/ML 100 ML BTL IJ (15:31)
== END 2024-01-30 02:45 ==
LOC: DI 02:25
PROVIDERS: PCP Nurse Practitioner Family; Visit Provider Internal Medicine
DX: I27.29 Other secondary pulmonary hypertension (principal); I50.23 Acute on chronic systolic (congestive) heart failure
CPT/HCPCS: 71275; J3490

== ENCOUNTER 2024-02-17 18:13 | Outpatient (REF) | payer SELFPAY ==
[2024-02-17 19:52] LABS: Abs Immature Grans 0.31 10^3/uL (0.0-0.06); Absolute Basophil Count 0.07 10^3/uL (0.0-0.2); Absolute Lymphocyte Count 1.49 10^3/uL (1.2-3.4); Absolute Neutrophil Count 6.28 10^3/uL (1.2-6.7); Basophils % 0.8 %; Eosinophils % 3.3 %; HCT 40.9 % (40.0-50.0); HGB 13.7 g/dL (13.5-17.5); Immature Grans % 3.4 %; Lymphocytes % 16.5 %; MCH 30.6 pg (27.0-33.0); MCHC 33.5 % (32.0-36.0); MCV 92 fL (80-95); Monocytes % 6.6 %; Neutrophils % 69.4 %; Platelet Count 163 10^3/uL (130-400); RBC 4.47 10^6/uL (4.36-5.78); RDW 20.5 % (11.8-14.1); RDW-SD 68.6 fL; WBC 9.05 10^3/uL (4.4-10.8)
[2024-02-17 20:30] LABS: Anisocytosis 2+; Diff Comment RBC Morph Reviewed
== END 2024-02-17 18:14 | disposition home or self-care (01) ==
LOC: LBN 18:13
PROVIDERS: PCP Nurse Practitioner Family; Visit Provider Nurse Practitioner Gerontology
DX: D62 Acute posthemorrhagic anemia (principal)
CPT/HCPCS: 85025

== ENCOUNTER 2024-03-30 18:50 | Outpatient (REF) | payer MEDICARE, MEDICAID, SELFPAY ==
[2024-03-30 19:14] LABS: Abs Immature Grans 0.37 10^3/uL (0.0-0.06); Absolute Basophil Count 0.08 10^3/uL (0.0-0.2); Absolute Lymphocyte Count 1.71 10^3/uL (1.2-3.4); Absolute Monocyte Count 0.92 10^3/uL (0.1-0.8); Absolute Neutrophil Count 5.77 10^3/uL (1.2-6.7); Basophils % 0.9 %; Eosinophils % 4.3 %; HGB 15.1 g/dL (13.5-17.5); Lymphocytes % 18.5 %; MCH 31.3 pg (27.0-33.0); MCHC 33.6 % (32.0-36.0); MCV 93 fL (80-95); Monocytes % 9.9 %; Neutrophils % 62.4 %; Platelet Count 155 10^3/uL (130-400); RBC 4.82 10^6/uL (4.36-5.78); RDW 16.3 % (11.8-14.1); RDW-SD 55.2 fL; WBC 9.25 10^3/uL (4.4-10.8)
[2024-03-30 19:53] LABS: Vitamin B12 249 pg/mL (193-986); Vitamin D 25 Total 39.4 ng/mL (30-100)
== END 2024-03-30 18:51 | disposition home or self-care (01) ==
LOC: LBN 18:50
PROVIDERS: PCP Nurse Practitioner Family; Visit Provider Nurse Practitioner Gerontology
DX: N18.32 Chronic kidney disease, stage 3b (principal)
CPT/HCPCS: 82306; 82607; 85025

== ENCOUNTER 2024-06-29 19:22 | Outpatient (REF) | payer MEDICARE, MEDICAID, SELFPAY ==
[2024-06-29 19:43] LABS: Absolute Basophil Count 0.09 10^3/uL (0.0-0.2); Absolute Eosinophil Count 0.27 10^3/uL (0.0-0.7); Absolute Lymphocyte Count 1.96 10^3/uL (1.2-3.4); Absolute Monocyte Count 0.78 10^3/uL (0.1-0.8); Eosinophils % 3.1 %; HCT 44.5 % (40.0-50.0); HGB 14.6 g/dL (13.5-17.5); Immature Grans % 3.4 %; Lymphocytes % 22.5 %; MCH 31.8 pg (27.0-33.0); MCHC 32.8 % (32.0-36.0); MCV 97 fL (80-95); RBC 4.59 10^6/uL (4.36-5.78); RDW 15.6 % (11.8-14.1)
[2024-06-29 20:21] LABS: ALT 49 U/L (16-63); AST 35 U/L (15-37); Albumin 4.1 g/dL (3.4-5.0); Alkaline Phosphatase 72 U/L (46-116); Anion Gap 9.6 mmol/L (3-11); BUN 24 mg/dL (7-18); Bilirubin, Total 0.41 mg/dL (0.2-1.0); CO2 27.4 mmol/L (21.0-32.0); CREATININE 1.4 mg/dL (0.70-1.30); Calcium 9.8 mg/dL (8.5-10.1); Chloride 106 mmol/L (98-107); Estimated GFR 51.77 (mL/min/1.73m2); Glucose 134 mg/dL (74-106); Potassium 4.5 mmol/L (3.5-5.1); Sodium 143 mmol/L (136-145); Total Protein 7.1 g/dL (6.4-8.2)
[2024-06-29 20:47] LABS: Diff Comment PLT Morph Reviewed; Platelet Count 158 10^3/uL (130-400); RBC Morphology Normal
[2024-06-30 01:07] LABS: NT-proBNP 49 pg/mL (<300)
== END 2024-06-29 19:23 | disposition home or self-care (01) ==
LOC: LBN 19:22
PROVIDERS: PCP Nurse Practitioner Family; Visit Provider Nurse Practitioner Gerontology
DX: I50.30 Unspecified diastolic (congestive) heart failure (principal); D50.0 Iron deficiency anemia secondary to blood loss (chronic); E87.6 Hypokalemia; E83.42 Hypomagnesemia
CPT/HCPCS: 80053; 83735; 83880; 85025

== ENCOUNTER 2024-10-05 18:06 | Outpatient (REF) | payer MEDICARE, MEDICAID, SELFPAY ==
[2024-10-05 18:09] LABS: Abs Immature Grans 0.26 10^3/uL (0.0-0.06); Absolute Basophil Count 0.08 10^3/uL (0.0-0.2); Absolute Eosinophil Count 0.31 10^3/uL (0.0-0.7); Absolute Lymphocyte Count 1.77 10^3/uL (1.2-3.4); Absolute Monocyte Count 0.94 10^3/uL (0.1-0.8); Absolute Neutrophil Count 5.87 10^3/uL (1.2-6.7); Basophils % 0.9 %; Eosinophils % 3.4 %; HCT 45.4 % (40.0-50.0); HGB 15.1 g/dL (13.5-17.5); Immature Grans % 2.8 %; Lymphocytes % 19.2 %; MCH 31.3 pg (27.0-33.0); MCHC 33.3 % (32.0-36.0); MCV 94 fL (80-95); Monocytes % 10.2 %; Neutrophils % 63.5 %; RBC 4.82 10^6/uL (4.36-5.78); RDW 15.3 % (11.8-14.1); RDW-SD 52.9 fL; WBC 9.23 10^3/uL (4.4-10.8)
[2024-10-05 18:31] LABS: ALT 53 U/L (16-63); AST 36 U/L (15-37); Albumin 4.2 g/dL (3.4-5.0); Alkaline Phosphatase 70 U/L (46-116); Anion Gap 10.2 mmol/L (3-11); BUN 22 mg/dL (7-18); Bilirubin, Total 0.4 mg/dL (0.2-1.0); CO2 27.8 mmol/L (21.0-32.0); CREATININE 1.1 mg/dL (0.70-1.30); Calcium 9.5 mg/dL (8.5-10.1); Chloride 103 mmol/L (98-107); Diff Comment PLT Morph Reviewed; Estimated GFR 69.14 (mL/min/1.73m2); Glucose 93 mg/dL (74-106); Platelet Count 156 10^3/uL (130-400); Potassium 4.6 mmol/L (3.5-5.1); RBC Morphology Normal; Sodium 141 mmol/L (136-145); TSH (W/Ref FT4) 2.41 uIU/mL (0.36-3.74); Total Protein 7.4 g/dL (6.4-8.2)
== END 2024-10-05 18:07 | disposition home or self-care (01) ==
LOC: LBN 18:06
PROVIDERS: PCP Nurse Practitioner Family; Visit Provider Nurse Practitioner Gerontology
DX: R53.82 Chronic fatigue, unspecified (principal); D63.1 Anemia in chronic kidney disease; E87.8 Other disorders of electrolyte and fluid balance, not elsewhere classified
CPT/HCPCS: 80053; 83735; 84443; 85025

== ENCOUNTER 2025-04-05 21:14 | Outpatient (REF) | payer MEDICARE, MEDICAID, SELFPAY ==
[2025-04-05 20:06] LABS: Abs Immature Grans 0.25 10^3/uL (0.0-0.06); HCT 41.3 % (40.0-50.0); HGB 13.4 g/dL (13.5-17.5); Immature Grans % 3.6 %; MCH 31.8 pg (27.0-33.0); MCHC 32.4 % (32.0-36.0); MCV 98 fL (80-95); Platelet Count 130 10^3/uL (130-400); RBC 4.21 10^6/uL (4.36-5.78); RDW 15.9 % (11.8-14.1); RDW-SD 57.2 fL; WBC 6.90 10^3/uL (4.4-10.8)
[2025-04-05 20:07] LABS: Magnesium 2.0 mg/dL (1.6-2.6)
[2025-04-05 20:08] LABS: TSH (W/Ref FT4) 2.29 uIU/mL (0.55-4.78)
[2025-04-05 20:09] LABS: ALT 56 U/L (10-49); AST 56 U/L (<34); Albumin 4.4 g/dL (3.2-5.0); Alkaline Phosphatase 62 U/L (46-116); Anion Gap 9.3 mmol/L (3-11); BUN 21 mg/dL (9-23); Bilirubin, Total 0.30 mg/dL (0.2-1.2); CO2 28.7 mmol/L (20.0-31.0); Calcium 9.4 mg/dL (8.3-10.6); Chloride 105 mmol/L (98-107); Glucose 104 mg/dL (74-106); Potassium 4.3 mmol/L (3.5-5.1); Sodium 143 mmol/L (136-145); Total Protein 6.9 g/dL (5.7-8.2)
== END 2025-04-05 21:15 | disposition home or self-care (01) ==
LOC: LBN 21:14
PROVIDERS: PCP Legal Medicine; Visit Provider Nurse Practitioner Gerontology
DX: E03.9 Hypothyroidism, unspecified (principal); E87.8 Other disorders of electrolyte and fluid balance, not elsewhere classified; E83.42 Hypomagnesemia
CPT/HCPCS: 80053; 83735; 83880; 84443; 85025